=== PATIENT | female | born 1990 | race Caucasian/White ===

== ENCOUNTER 2019-03-24 22:23 | Emergency (ER) | payer OTHER ==
--- NOTE | 2019-03-24 22:49 | PDOC ---
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 Patient presented to our ED with coarse soudns and mucous being expressed from her stoma. VS demonstrated O2 in the mid 90s on non rebreather over her mouth and patient was tachypnic. No notation of fevers, chills, nausea, vomiting, or other symptoms from her [facility]. 03/25/19 01:12 Past History - Past Medical History Allergies/Adverse Reactions: Allergies Allergy/AdvReac Type Severity Reaction Status Date / Time Barbiturates Allergy Verified 03/24/19 23:40 Hydantoins Allergy Verified 03/24/19 23:40 Penicillins Allergy Verified 03/24/19 23:40 phenytoin sodium Allergy Verified 03/24/19 23:40 [From Dilantin] phenytoin sodium extended Allergy Verified 03/24/19 23:40 [From Dilantin] Quinolones Allergy Verified 03/24/19 23:40 vancomycin Allergy Verified 03/24/19 23:40 Home Medications: Ambulatory Orders Albuterol 0.083% Nebulizer Makeda [Ventolin 0.083% Nebulizer Soln -] 1 neb NEB Q6H 09/05/15 Calcium 500Mg/Vit-D 200 Units [Os-Anil 500+D -] 1 combo GT ONCE 09/05/15 Carbamide Peroxide [Carbamoxide] 4 drop OT DAILY 09/05/15 Cetirizine HCl 10 mg GT HS 09/05/15 Cholecalciferol (Vitamin D3) [Vitamin D-3] 1,000 unit GT BID 09/05/15 Cyclosporine [Restasis] 1 each OP DAILY 09/05/15 Dextran 70/Hypromellose [Artificial Tears] 2 each OU QID 09/05/15 Docusate Liquid [Colace Liquid -] 50 mg PO DAILY 09/05/15 Levothyroxine [Synthroid -] 100 mcg GT DAILY 09/05/15 Magnesium Hydroxide [Milk of Magnesia] 30 ml GT DAILY 09/05/15 Multivitamin [Poly-Vitamin] 1 each GT DAILY 09/05/15 Ocular Lubricant Ophth Oint [Lacri-Lube Eye Ointment -] 1 applic OU HS 09/05/15 Omeprazole 20 mg GT DAILY 09/05/15 Ranitidine Oral Solution [Zantac] 150 mg GT Q12H 09/05/15 Triamcinolone Acetonide [Nasacort] 10.8 ml NS DAILY 09/05/15 Ursodiol [Actigall] 300 mg GT TID 09/05/15 Vit C/Ascorbate Calcium,Sodium [Vitamin C 500 mg/15 ml Liquid] 1,000 mg GT DAILY 09/05/15 levETIRAcetam [Keppra Oral Solution -] 1,500 mg PO BID 09/05/15 Seizures: Yes Thyroid Disease: Yes (hashimototo thyroiditis) - Surgical History Cholecystectomy: Yes Neurologic Surgery: Yes (tbi) - Immunization History Immunization Up to Date: (unknown) - Suicide/Smoking/Psychosocial Hx Smoking History: Unknown if ever smoked Hx Alcohol Use: No Drug/Substance Use Hx: No Review of Systems - Review of Systems Able to Perform ROS?: No (non verbal) Is the patient limited Pashto proficient: Yes *Physical Exam - Physical Exam General Appearance: Yes: Nourished, Appropriately Dressed, Apparent Distress, Moderate Distress HEENT: positive: EOMI, BRAEDEN. negative: Normal ENT Inspection (tracheal stoma site well healed with copious clear mucous expressed from the site) Neck: positive: Trachea midline, Supple Respiratory/Chest: positive: Respiratory Distress, Accessory Muscle Use. negative: Chest Tender, Lungs Clear (upper respiratory transmission with clear lower lung betancourt otherwise), Normal Breath Sounds Cardiovascular: positive: Regular Rhythm, Tachycardia. negative: Regular Rate Gastrointestinal/Abdominal: positive: Normal Bowel Sounds, Flat, Soft. negative : Tender Musculoskeletal: positive: Muscle Spasm, Other (bilateral le spasms with upper extemeity contractures) Extremity: negative: Normal Capillary Refill, Normal Inspection, Normal Range of Motion, Tender Integumentary: positive: Normal Color, Dry, Warm Neurologic: positive: Alert. negative: Normal Response, Motor Strength 5/5 ED Treatment Course - LABORATORY CBC & Chemistry Diagram: 03/25/19 00:22 03/25/19 00:22 Medical Decision Making - Medical Decision Making 28 year old female with multiple post traumatic neurological deficits presenting with shortness of breath and clear CXR with small WBC concerning for likely mucous plug as their was clear mucous coming from a mature healed tracheal stoma. We performed chest PT and saline suctioning which relieved her symptoms. SHe was sating 99% comfortably on RA a few hours fter presentation. Chemistries WNL with exception of mild hypokalemia (given kdur 20meq). EKG demonstrating rate 104, IA 154, QRS 76, QTc 462, and normal axis with nonspecific t wave changes v3-v6 concerning for rate dependent repolarization abnormality. 03/25/19 01:21 *DC/Admit/Observation/Transfer Diagnosis at time of Disposition: Mucus plugging of bronchi - Discharge Dispostion Disposition: RETIREMENT FACILITY Condition at time of disposition: Improved Decision to Admit order: No - Referrals - Patient Instructions Additional Instructions: You likely had a mucous plug of your lungs. There is no sign of infection on your CXR. Please make sure to have her sitting up and try to perform chest PT if possible whenever you can. Please return to the ED if you have any new or worsening symptoms. - Post Discharge Activity
[2019-03-24] MEDS ORDERED: ALBUTEROL SO4 0.083% IH SOL 2.5 MG/3 ML VIAL.NEB. NEB ONE (22:52)
[2019-03-24] MEDS ORDERED: IPRATROPIUM BR 0.02% 0.5 MG/2.5 ML VIAL.NEB. NEB ONE (22:52)
[2019-03-24 23:49] VITALS: BP 110/78; PULSE 98; TEMP 98.5; BMI 32.5
[2019-03-25 00:36] LABS: VENOUS PC02 53.8 mmHg (41-51); VENOUS PH 7.31 (7.31-7.41)
[2019-03-25 00:47] LABS: BASO % 0.1 % (0-2.0); EOS % 0.1 % (0-4.5); HEMATOCRIT 40.8 % (32.4-45.2); HEMOGLOBIN 13.8 GM/dL (10.7-15.3); LYMPH % 5.1 % (8-40); MCH 35.5 pg (25.7-33.7); MCHC 33.8 g/dl (32.0-36.0); MEAN CELL VOLUME 104.8 fl (80-96); MEAN PLT VOLUME 8.9 fl (7.5-11.1); MONO % 2.4 % (3.8-10.2); NEUT % 92.3 % (42.8-82.8); PLATELET COUNT 160 K/MM3 (134-434); RBC 3.89 M/mm3 (3.60-5.2); WHITE BLOOD COUNT 16.5 K/mm3 (4.0-10.0)
--- NOTE | 2019-03-25 00:52 | PDOC ---
Documentation entered by Alem Edward SCRIBE, acting as scribe for Shane Yang MD. Shane Yang MD: This documentation has been prepared by the Cheyanne taylor Nirvannie, SCRIBE, under my direction and personally reviewed by me in its entirety. I confirm that the documentation accurately reflects all work, treatment, procedures, and medical decision making performed by me. Attending Attestation - Resident Resident Name: Arin Jackson - ED Attending Attestation I have performed the following: I have examined & evaluated the patient, The case was reviewed & discussed with the resident, I agree w/resident's findings & plan - HPI HPI: 03/24/19 23:18 The patient is a 28 year old female, with a significant past medical history of raheel thyroiditis, seizures, and TBI, who presents to the emergency department from [facility] with, difficulty breathing. As per EMS, patient had her trach removed approximately 4 years ago and today she had been experiencing drainage from the area. Allergies: Barbiturates, Hydantoins, Penicillins, phenytoin sodium, phenytoin sodium extended, Quinolones, vancomycin Social History: Resident @ [facility]. - Physicial Exam PE: 03/25/19 00:49 Patient is awake, alert, nonverbal, and respiratory distress Patient communicates by pointing to card with word yes and no on them Normocephalic, PERRLA, EOMI No foreign bodies within the oropharynx Mature stoma is noted to the anterior aspect of the neck draining mucoid discharge Lungs are clear with upper respiratory sounds transmitted distally Abdomen is soft and nontender - Medical Decision Making 03/25/19 00:50 Patient is a 28-year-old female with history of TBI presents to the ER with sudden onset of shortness of breath and cough. I suspect a mucous plug. Aggressive pulmonary toilet administered in the ER along with suctioning and saline nebulizers. On room air, patient's oxygen saturation is noted to be 97-98 %. Chest x-ray reveals no evidence of infiltrate or effusion. Will observe. Likely discharge. 03/25/19 01:20 Patient is resting comfortably, her symptoms have completely resolved. Oxygen saturation room air is noted to be 99%. Patient's initial EKG revealed ST segment abnormalities in the lateral leads likely related to post tachycardia repolarization. CBC reveals leukocytosis with predominance of neutrophils likely related to the acute stress reaction. Awaiting CMP. Disposition as planned
[2019-03-25 01:05] LABS: INR 0.99 (0.83-1.09); PROTHROMBIN TIME (PATIENT) 11.7 SEC (9.7-13.0)
[2019-03-25 01:09] LABS: ACTIVATED PTT 34.7 SECONDS (25.2-36.5)
[2019-03-25 01:22] LABS: ALBUMIN 3.6 g/dl (3.4-5.0); ALK PHOS 211 U/L (45-117); ANION GAP 11 MMOL/L (8-16); BILIRUBIN,TOTAL 0.3 mg/dL (0.2-1); BLOOD UREA NITROGEN 17 mg/dL (7-18); CALCIUM 9.4 mg/dL (8.5-10.1); CHLORIDE 104 mmol/L (98-107); CO2 25 mmol/L (21-32); CREATININE 0.6 mg/dL (0.55-1.3); GLUCOSE,RANDOM 109 mg/dL (74-106); POTASSIUM 3.3 mmol/L (3.5-5.1); SGOT/AST 41 U/L (15-37); SGPT/ALT 50 U/L (13-61); SODIUM 140 mmol/L (136-145); TOT PROT 8.3 g/dl (6.4-8.2)
[2019-03-25] MEDS ORDERED: POTASSIUM CHLORIDE TABS 20 MEQ TABLET.ER (FP) PO ONE (01:31)
[2019-03-25] MEDS ORDERED: POTASSIUM CHLORIDE ORAL LIQUID 20 MEQ/15 ML PO ONE (01:32)
[2019-03-25] MEDS ORDERED: POTASSIUM CHLORIDE ORAL LIQUID 20 MEQ/15 ML ONE (01:39)
[2019-03-25 11:29] LABS: ANISOCYTOSIS 2+; MACROCYTOSIS 0; PLATELET ESTIMATE NORMAL
--- NOTE | 2019-03-25 15:05 | EKG ---
Test Reason : Blood Pressure : / mmHG Vent. Rate : 104 BPM Atrial Rate : 104 BPM P-R Int : 154 ms QRS Dur : 076 ms QT Int : 352 ms P-R-T Axes : 068 045 078 degrees QTc Int : 462 ms SINUS TACHYCARDIA NONSPECIFIC ST AND T WAVE ABNORMALITY ABNORMAL ECG NO PREVIOUS ECGS AVAILABLE Confirmed by KELBY PETERSON MD ([id number]) on 03/25/2019 3:05:34 PM Referred By: Confirmed By:KELBY PETERSON MD
--- NOTE | 2019-03-25 15:07 | EKG ---
Test Reason : Blood Pressure : / mmHG Vent. Rate : 110 BPM Atrial Rate : 110 BPM P-R Int : 144 ms QRS Dur : 086 ms QT Int : 364 ms P-R-T Axes : 075 052 073 degrees QTc Int : 492 ms SINUS TACHYCARDIA NONSPECIFIC ST AND T WAVE ABNORMALITY ABNORMAL ECG NO PREVIOUS ECGS AVAILABLE Confirmed by KELBY PETERSON MD ([id number]) on 03/25/2019 3:06:38 PM Referred By: Confirmed By:KELBY PETERSON MD
== END 2019-03-25 04:12 ==
LOC: JER 22:23
DX: J98.09 Other diseases of bronchus, not elsewhere classified (principal); T17.890A Other foreign object in other parts of respiratory tract causing asphyxiation, initial encounter; E06.3 Autoimmune thyroiditis; S06.9X0A Unspecified intracranial injury without loss of consciousness, initial encounter; R56.9 Unspecified convulsions
CPT/HCPCS: 36415; 71045-TC-FY; 80053; 82803; 83605; 84439; 84443; 84484; 85025; 85610; 85730; 87040; 93005; 93010; 99282-25

== ENCOUNTER 2019-10-21 10:48 | Inpatient (IN) | payer OTHER ==
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
--- NOTE | 2019-10-21 11:36 | PDOC ---
Attending Attestation - Resident Resident Name: Lauren French - ED Attending Attestation I have performed the following: I have examined & evaluated the patient, The case was reviewed & discussed with the resident, I agree w/resident's findings & plan, Exceptions are as noted
[2019-10-21 12:25] LABS: VENOUS PC02 43.8 mmHg (38-52); VENOUS PH 7.36 (7.31-7.41); VENOUS PO2 63.2 mmHg (28-48)
[2019-10-21] MEDS ORDERED: SODIUM CHLORIDE IV ONE (13:12)
[2019-10-21] MEDS ORDERED: ACETAMINOPHEN 1000 MG/100 ML VIAL (NON FORMULARY) IVPB ONE (13:20)
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
[2019-10-21] MEDS ORDERED: ACETAMINOPHEN INJECTION 100 ML IVPB ONE (13:51)
[2019-10-21] MEDS ORDERED: AZITHROMYCIN IVPB 500 MG in DEXTROSE 5%-WATER - 250 ML IVPB ONE (13:53)
[2019-10-21] MEDS ORDERED: AZTREONAM 2 GM in DEXTROSE 5%-WATER 100 ML IVPB ONE (13:54)
[2019-10-21 13:58] LABS: BASO % 0.1 % (0-2.0); HEMATOCRIT 33.6 % (32.4-45.2); HEMOGLOBIN 11.5 GM/dL (10.7-15.3); LYMPH % 2.5 % (8-40); MCH 36.6 pg (25.7-33.7); MCHC 34.4 g/dl (32.0-36.0); MEAN CELL VOLUME 106.5 fl (80-96); MEAN PLT VOLUME 8.9 fl (7.5-11.1); MONO % 2.3 % (3.8-10.2); NEUT % 95.1 % (42.8-82.8); PLATELET COUNT 158 K/MM3 (134-434); RBC 3.15 M/mm3 (3.60-5.2); RDW 14.5 % (11.6-15.6); WHITE BLOOD COUNT 10.3 K/mm3 (4.0-10.0)
[2019-10-21] MEDS ORDERED: AZITHROMYCIN IVPB 500 MG/250 ML BAG IVPB ONE (14:00)
[2019-10-21] MEDS ORDERED: AZTREONAM 1 GM VIAL (RESTRICTED TO ID) ONE (14:00)
[2019-10-21 14:42] LABS: ALBUMIN 3.3 g/dl (3.4-5.0); ALK PHOS 215 U/L (45-117); ANION GAP 6 MMOL/L (8-16); BILIRUBIN,TOTAL 0.4 mg/dL (0.2-1); BLOOD UREA NITROGEN 10.1 mg/dL (7-18); CALCIUM 9.1 mg/dL (8.5-10.1); CHLORIDE 102 mmol/L (98-107); CO2 26 mmol/L (21-32); CREATININE 0.6 mg/dL (0.55-1.3); GLUCOSE,RANDOM 147 mg/dL (74-106); POTASSIUM 4.5 mmol/L (3.5-5.1); SGOT/AST 107 U/L (15-37); SGPT/ALT 109 U/L (13-61); SODIUM 134 mmol/L (136-145); TOT PROT 7.3 g/dl (6.4-8.2)
[2019-10-21 14:43] LABS: ANISOCYTOSIS 1+; MACROCYTOSIS 1+; PLATELET ESTIMATE NORMAL
[2019-10-21] MEDS ORDERED: morphine CARPU-JECT 4 MG/1 ML DISP.SYRIN IVPUSH ONE (14:51)
[2019-10-21] MEDS ORDERED: morphine SULFATE 4 MG/ML VIAL ONE (15:29)
[2019-10-21] MEDS ORDERED: LINEZOLID 600 MG PREMIX BAG 600 MG in PREMIX 300 IVPB ONE (15:30)
[2019-10-21] MEDS ORDERED: RANITIDINE HCL 150 MG/10 ML UNIT-DOSE GT SCH (16:15)
[2019-10-21] MEDS ORDERED: SODIUM CHLORIDE 1,000 ML IV SCH ×2 (16:15→19:02)
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
[2019-10-21 17:51] LABS: URINE APPEARANCE CLEAR; URINE BILIRUBIN NEGATIVE (NEGATIVE); URINE COLOR YELLOW; URINE GLUCOSE (UA) NEGATIVE (NEGATIVE); URINE KETONE NEGATIVE (NEGATIVE); URINE LEUK ESTERASE NEGATIVE (NEGATIVE); URINE NITRITE NEGATIVE (NEGATIVE); URINE PROTEIN NEGATIVE (NEGATIVE); URINE UROBILINOGEN 0.2 mg/dL (0.2-1.0)
[2019-10-21 17:56] LABS: MAGNESIUM 1.7 mg/dL (1.8-2.4); PHOSPHOROUS 1.8 mg/dL (2.5-4.9)
[2019-10-21] MEDS ORDERED: MAGNESIUM SULF 50% (8.12 MEQ/2 ML-1 GM VIAL) IVPB ONE (17:59)
[2019-10-21] MEDS: LINEZOLID 600 MG PREMIX BAG 600 MG in PREMIX 300 IVPB SCH (18:03)
--- NOTE | 2019-10-21 18:04 | EKG ---
Test Reason : Blood Pressure : / mmHG Vent. Rate : 117 BPM Atrial Rate : 117 BPM P-R Int : 134 ms QRS Dur : 074 ms QT Int : 338 ms P-R-T Axes : 067 036 003 degrees QTc Int : 471 ms POOR DATA QUALITY, INTERPRETATION MAY BE ADVERSELY AFFECTED SINUS TACHYCARDIA POSSIBLE LEFT ATRIAL ENLARGEMENT NONSPECIFIC ST AND T WAVE ABNORMALITY IN INFERIOR AND LATERAL LEADS Confirmed by MD Amrit, Rajendra ([id number]) on 10/21/2019 6:04:16 PM Referred By: Confirmed By:Rajendra Marcus MD
[2019-10-21 18:18] LABS: INR 1.05 (0.83-1.09); PROTHROMBIN TIME (PATIENT) 12.4 SEC (9.7-13.0)
[2019-10-21 18:21] LABS: ACTIVATED PTT 22.2 SECONDS (25.2-36.5)
[2019-10-21] MEDS ORDERED: LACTATED RINGERS SOLUTION 1,000 ML/1,000 ML INFUS.BAG IV SCH (19:00)
[2019-10-21] MEDS: ALBUTEROL SO4 0.083% IH SOL 2.5 MG/3 ML VIAL.NEB. NEB SCH (20:49)
[2019-10-21] MEDS: IBUPROFEN 600 MG TABLET (FP) PO PRN (21:45)
[2019-10-21] MEDS: SODIUM PHOSPHATE - 30 MM in SODIUM CHLORIDE 500 ML IVPB ONE (21:45)
[2019-10-21] MEDS ORDERED: CALCIUM 500MG/VIT-D 200 UNITS COMBO TABLET (FP) GT ONE (22:00)
[2019-10-21 22:14] VITALS: BMI 23.4
[2019-10-21] MEDS: FAMOTIDINE 40 MG/5 ML ORAL SUSPENSION NR SCH (22:45)
[2019-10-21] MEDS: levETIRAcetam 500 MG/5 ML ORAL SOLUTION (UNIT-DOSE CUPS) PO SCH (22:45)
[2019-10-21] MEDS: OCULAR LUBRICANT OPHTHALMIC OINTMENT 7 GM TUBE OU SCH (22:45)
[2019-10-21] MEDS: HEPARIN NA (PORCINE) 5,000 UNITS/ML 1ML VIAL SQ SCH (22:46)
[2019-10-22] MEDS ORDERED: AZTREONAM 1 GM VIAL (RESTRICTED TO ID) ONE ×2 (00:08→10:19)
[2019-10-22] MEDS ORDERED: DEXTROSE 5%-WATER - 50 ML IVPB ONE ×2 (00:08→10:19)
[2019-10-22] MEDS: AZTREONAM 1 GM in DEXTROSE 5%-WATER - 50 ML IVPB SCH ×3 (01:07→17:09)
[2019-10-22] MEDS: SODIUM PHOSPHATE - 30 MM in SODIUM CHLORIDE 500 ML IVPB ONE (02:48)
[2019-10-22] MEDS: HEPARIN NA (PORCINE) 5,000 UNITS/ML 1ML VIAL SQ SCH ×3 (05:32→21:32)
[2019-10-22] MEDS ORDERED: LINEZOLID 600 MG PREMIX BAG 600 MG/300 ML BAG IVPB ONE (06:00)
[2019-10-22] MEDS: LEVOTHYROXINE NA 100 MCG TABLET (FP) GT SCH (06:15)
[2019-10-22 08:33] LABS: BASO % 0.1 % (0-2.0); HEMATOCRIT 26.7 % (32.4-45.2); LYMPH % 27.7 % (8-40); MCH 36.5 pg (25.7-33.7); MCHC 33.7 g/dl (32.0-36.0); MEAN CELL VOLUME 108.3 fl (80-96); MEAN PLT VOLUME 8.6 fl (7.5-11.1); MONO % 12.1 % (3.8-10.2); NEUT % 60.1 % (42.8-82.8); PLATELET COUNT 136 K/MM3 (134-434); RBC 2.47 M/mm3 (3.60-5.2); RDW 14.6 % (11.6-15.6); WHITE BLOOD COUNT 7.6 K/mm3 (4.0-10.0)
[2019-10-22 09:02] LABS: ALBUMIN 2.6 g/dl (3.4-5.0); BILIRUBIN,TOTAL 0.2 mg/dL (0.2-1); BLOOD UREA NITROGEN 6.4 mg/dL (7-18); CALCIUM 8.1 mg/dL (8.5-10.1); CREATININE 0.3 mg/dL (0.55-1.3); PHOSPHOROUS 3.3 mg/dL (2.5-4.9); POTASSIUM 3.7 mmol/L (3.5-5.1); TOT PROT 5.9 g/dl (6.4-8.2)
[2019-10-22] MEDS: ALBUTEROL SO4 0.083% IH SOL 2.5 MG/3 ML VIAL.NEB. NEB SCH ×4 (09:40→21:22)
[2019-10-22] MEDS ORDERED: AZITHROMYCIN IVPB 500 MG/250 ML BAG IVPB ONE (10:00)
[2019-10-22] MEDS ORDERED: PANTOPRAZOLE 40 MG TABLET (FP) PO SCH (10:00)
[2019-10-22] MEDS ORDERED: PATIENT'S OWN MEDICATION (NON-FORMULARY) (Multivitamin [Poly-Vitamin] 1 EACH) GT SCH (10:00)
[2019-10-22] MEDS ORDERED: PT OWN MED DRAWER 7, Y5N ONE ×2 (10:20→17:24)
[2019-10-22] MEDS: MAGNESIUM HYDROX 2400MG/30ML ORAL SUSPENSION 30 ML CUP GT SCH (10:29)
[2019-10-22] MEDS: FAMOTIDINE 40 MG/5 ML ORAL SUSPENSION NR SCH ×2 (10:31→21:32)
[2019-10-22] MEDS: DOCUSATE NA 100 MG/10 ML UNIT-DOSE CUPS PO SCH (10:31)
[2019-10-22] MEDS: levETIRAcetam 500 MG/5 ML ORAL SOLUTION (UNIT-DOSE CUPS) PO SCH ×2 (10:33→21:33)
--- NOTE | 2019-10-22 12:14 | PN ---
Progress Note, Physician History of Present Illness: Patient seen and examined at bedside. Pending ID consult. Lactic acid normalized. LFTs imporved. labs seem dilutional as she got large amount of IVF. UA clean. UCx BCx pending. WBC count imporved. Tmax 100 last night. Afebrile. Tachycardia improved. ROS could not be done as patient is non verbal. - Current Medication List Current Medications: Active Medications Albuterol Sulfate (Ventolin 0.083% Nebulizer Soln -) 1 amp NEB RQID [facility] Last Admin: 10/21/19 20:49 Dose: 1 amp Artificial Tears (Lacri-Lube Eye Ointment -) 1 applic OU HS [facility] Last Admin: 10/21/19 22:45 Dose: 1 appful Docusate Sodium (Colace Liquid -) 50 mg PO DAILY [facility] Last Admin: 10/22/19 10:31 Dose: 50 mg Famotidine (Pepcid) 20 mg NR BID [facility] Last Admin: 10/22/19 10:31 Dose: 20 mg Heparin Sodium (Porcine) (Heparin -) 5,000 unit SQ TID [facility] Last Admin: 10/22/19 05:32 Dose: 5,000 unit Aztreonam 1 gm/ Dextrose 50 mls @ 100 mls/hr IVPB Q8H-IV [facility]; Protocol Linezolid 600 mg/ (Miscellaneous) 300 mls @ 300 mls/hr IVPB Q12H [facility]; Protocol Last Admin: 10/21/19 18:03 Dose: 300 mls/hr Lactated Ringer's (Lactated Ringers Solution) 1,000 ml in 1,000 mls @ 1,000 mls /hr IV ASDIR [facility] Stop: 10/22/19 19:59 Last Admin: 10/21/19 20:45 Dose: 1,000 mls/hr Aztreonam 1 gm/ Dextrose 50 mls @ 100 mls/hr IVPB Q8H-IV [facility] Stop: 10/22/19 18:29 Last Admin: 10/22/19 10:29 Dose: 100 mls/hr Ibuprofen (Motrin -) 600 mg PO Q6H PRN PRN Reason: FEVER Last Admin: 10/21/19 21:45 Dose: 600 mg Levetiracetam (Keppra Oral Solution -) 1,500 mg PO BID [facility] Last Admin: 10/22/19 10:33 Dose: 1,500 mg Levothyroxine Sodium (Synthroid -) 100 mcg GT DAILY@0700 [facility] Last Admin: 10/22/19 06:15 Dose: 100 mcg Magnesium Hydroxide (Milk Of Magnesia -) 30 ml GT DAILY [facility] Last Admin: 10/22/19 10:29 Dose: 30 ml Multivitamins/Minerals (Certavite-Antioxidant Liquid) 15 ml GT DAILY [facility] - Objective Vital Signs: Vital Signs Temperature 98.6 F 10/22/19 05:00 Pulse Rate 94 H 10/22/19 09:00 Respiratory Rate 18 10/22/19 09:00 Blood Pressure 91/61 10/22/19 09:00 O2 Sat by Pulse Oximetry (%) 98 10/22/19 08:38 Constitutional: Yes: Well Nourished, no distress Eyes: Yes: Conjunctiva Clear Neck: Yes: Other (stoma where tracheostomy was is with purulent thick secretions which are still present) Cardiovascular: Yes: Tachycardia Respiratory: Yes: Rales, Rhonchi, SOB Gastrointestinal: Yes: Soft, Other (PEG in place without drainage or erythema). No: Distention, Tenderness (no grimacing) Musculoskeletal: Yes: Other (arms spontaneously moving) Edema: LLE: Trace, RLE: Trace Psychiatric: Yes: Other (history of TBI) Labs: CBC, BMP 10/22/19 08:00 10/22/19 08:00 INR, PTT INR 1.05 (0.83-1.09) 10/21/19 17:25 Impression/Plan Impression/Plan: This is a 29F with history of TBI seizures and hypothyroidism who presents to the hospital with copious thick purulent secretions from previous tracheostomy stoma, tachycardia, acute hypoxemia respiratory failure, secondary to healthcare acquired pneumonia. Problem List: severe Sepsis secondary to Healthcare acquired PNA Acute hypoxemic respiratory failure Tachycardia Seizure history hypothyroidism Elevated LFTs likely shock liver from sepsis Lactic acidosis-resolved TBI Functional quadriplegia mild hyponatremia-resolved with IVF Hypophosphatemia-resolved with repletion hypomagnesemia-resolved with repletion Plan: ID consult due to Abx allergies-pending. Got azactam, linezolid and azithromycin this AM pending ID consult f/u Cultures-pending f/u UA-clean UCx via straight cath pending continue home meds continue nebulizers continue synthroid Tube feeds per prison instructions Jevity 1 can 4 times a day with free water flushes ordered supervisor stone consult continue keppra lactic acidosis resolved IVF NS @ 100ml/hr Trend LFTs-improving with volume Visit type - Emergency Visit Emergency Visit: Yes ED Registration Date: 10/21/19 Care time: The patient presented to the Emergency Department on the above date and was hospitalized for further evaluation of their emergent condition. - New Patient This patient is new to me today: No - Critical Care Critical Care patient: No
[2019-10-22] MEDS ORDERED: LACTATED RINGERS SOLUTION 1,000 ML/1,000 ML INFUS.BAG IV SCH (14:30)
--- NOTE | 2019-10-22 17:07 | PN ---
Progress Note (short form) - Note Progress Note: ID CONSULT DICTATED PNEUMONIA MULTIPLE ANTIBIOTIC ALLERGIES PENDING C/S EMPIRIC ZITHROMAX/ AZTREONAM
[2019-10-22] MEDS: LINEZOLID 600 MG PREMIX BAG 600 MG in PREMIX 300 IVPB SCH (17:09)
[2019-10-22] MEDS: MULTIVIT-MINERALS ORAL LIQUID GT SCH (17:50)
[2019-10-22] MEDS: AZTREONAM 2 GM in DEXTROSE 5%-WATER 100 ML IVPB SCH (19:17)
[2019-10-22] MEDS: OCULAR LUBRICANT OPHTHALMIC OINTMENT 7 GM TUBE OU SCH (21:33)
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
[2019-10-23] MEDS: AZTREONAM 2 GM in DEXTROSE 5%-WATER 100 ML IVPB SCH ×3 (01:41→17:55)
[2019-10-23] MEDS: HEPARIN NA (PORCINE) 5,000 UNITS/ML 1ML VIAL SQ SCH ×3 (06:12→22:04)
[2019-10-23] MEDS: LEVOTHYROXINE NA 100 MCG TABLET (FP) GT SCH (06:12)
[2019-10-23] MEDS: ALBUTEROL SO4 0.083% IH SOL 2.5 MG/3 ML VIAL.NEB. NEB SCH ×4 (08:23→20:39)
[2019-10-23 08:25] LABS: BASO % 0.2 % (0-2.0); EOS % 0.8 % (0-4.5); HEMATOCRIT 27.5 % (32.4-45.2); HEMOGLOBIN 9.4 GM/dL (10.7-15.3); MCH 36.8 pg (25.7-33.7); MCHC 34.2 g/dl (32.0-36.0); MEAN CELL VOLUME 107.7 fl (80-96); MEAN PLT VOLUME 8.8 fl (7.5-11.1); MONO % 9.3 % (3.8-10.2); NEUT % 52.7 % (42.8-82.8); PLATELET COUNT 144 K/MM3 (134-434); RBC 2.55 M/mm3 (3.60-5.2); RDW 15.3 % (11.6-15.6); WHITE BLOOD COUNT 6.4 K/mm3 (4.0-10.0)
[2019-10-23 08:56] LABS: ALBUMIN 2.7 g/dl (3.4-5.0); BILIRUBIN,TOTAL 0.2 mg/dL (0.2-1); BLOOD UREA NITROGEN 6.7 mg/dL (7-18); CALCIUM 8.8 mg/dL (8.5-10.1); CREATININE 0.4 mg/dL (0.55-1.3); PHOSPHOROUS 1.8 mg/dL (2.5-4.9); POTASSIUM 3.8 mmol/L (3.5-5.1); TOT PROT 6.1 g/dl (6.4-8.2)
--- NOTE | 2019-10-23 10:19 | PN ---
Progress Note (short form) - Note Progress Note: Seen and examined; please see resident note for further information. Agree with above as documented aside from as supplemented by myself. Personally verified all thakkar historical details, PE findings, as well as all labs, imaging, and diagnostics. Discussed at length with resident and indicated consultants. No further events noted 10 sys ROS not able to be reliably completed due to underlying mentation NAD, tracks and responds to verbal stimuli, resting in bed NC AT EOMI PERRLA HR wnl, s1/2+ Trachea midline with inflamed stoma, no JVD Lungs with mild scattered rales but poor inspiratory effort, w/ sym exp NT ND +BS CN2-12 wnl, moves all 4 ext with seemingly normal strength but difficult neuro exam due to underlying condition Normal mood, not agitated, clinical condition limits judgment and insight Micro reviewed EKG reviewed labs reviewed CT neck and CT chest pending (poor inspiration admission CXR makes PNA difficult to see, want to r/o stomatitis or complications of such) Ordered respiratory viral pannel, urinary Ag, sputum cx A/P Patient presented with sepsis (resolved) and was found to have increased stomal secretions Problems include: -Sepsis -Acute respiratory failure (On 3L, no steroids, BDs per pulm) -PNA vs. stomatitis -Hx TBI -Hx Seizures -Hx Hypothyroidism -Hx functional quadraplegia -Mucus plugging (PRN suctioning) -Transaminitis (2/2 sepsis, followup US and trend CMP) -PNC allergy (abx per ID) Full Code <Perfecto Clark - Last Filed: 10/23/19 13:20> - Note Progress Note: Hospitalist Medicine Pt seen this AM. Non-verbal, receiving neb tx. Appears comfortable Vitals 10/22/19 21:00 Temperature 98.5 F Pulse Rate 95 H Respiratory 20 Rate Blood Pressure 111/61 O2 Sat by Pulse 98 Oximetry (%) Oxygen Flow 3 Rate Physical Exam general: resting in bed. receiving neb tx. in NAD HEENT: NCAT neck: supple. +stoma clean, without secretions cardio: s1, s2 rrr. no r/m/g pulm: +b/l rhonchi. no accessory m usage abdomen: nontender, nondistended. +GT in place. no erythema LE: contracted, no edema. pulses intact Microbiology 10/21/19 17:28 Urine - Urine Clean Catch Urine Culture - Final NO GROWTH OBTAINED 10/21/19 11:46 Blood - Peripheral Venous Blood Culture - Preliminary NO GROWTH OBTAINED AFTER 24 HOURS, INCUBATION TO CONTINUE FOR 4 DAYS. 10/21/19 11:46 Blood - Peripheral Venous Blood Culture - Preliminary NO GROWTH OBTAINED AFTER 24 HOURS, INCUBATION TO CONTINUE FOR 4 DAYS. EKG: +sinus tach, qtc 471ms Imaging 10/21 CXR: weak inspiration with bibasilar atelectasis. Assessment/Plan 29 y/o F with history of TBI seizures and hypothyroidism who presents to the hospital with copious thick purulent secretions from previous tracheostomy stoma , tachycardia, acute hypoxemia respiratory failure, secondary to healthcare acquired pneumonia. #severe Sepsis secondary to Healthcare acquired PNA #Acute hypoxemic respiratory failure -c/w zithro, azactam (Day2) -c/w nebs PRN -UA, blood, ucx (-) thus far -motrin PRN for pain/fever -unable to give sputum cx -w/numerous abx allergies: PCN, vanco, etc. -ID on board: Dr. Douglas #R/o stomatitis -f/u ENT: Dr. Vegas -f/u chest CT, soft tissue neck CT -f/u ECHO; increased atrial pressure #transaminitis likely 2/2 sepsis -improving; c/t monitor # hx seizures -c/w keppra GT #hypothyroidism -c/w synthroid #Functional quadriplegia -c/w home meds: mg ox, MTV minerals, ocular lubricant #Constipation -c/w colace #F/E/N off IVF; lactic has improved continue to follow lyanita TF vital per dietary #PPX DVT: hep 5k Sq TID GI: pepcid #Dispo cont'd monitoring on med/surg will update aunt Margaret - guardian <Radha Kerr - Last Filed: 10/23/19 18:47>
--- NOTE | 2019-10-23 12:07 | CON.PULM ---
Consult Consult Specialty:: PULM/CCM Referred by:: Hospitalist Reason for Consultation:: PNA - History of Present Illness Chief Complaint: SOB History of Present Illness: 29F, history of TBI, functional quadriplegia, hypothyroidism, and seizure disorder. Admitted via the ER from [facility]. Reported to have "copious secretions from stoma" with tachycardia and hypoxemia. Apparently she was saturating in the low 80s on room air and high 80s on 3l NC. The patient is not able to provide any history. In the ER she was noted to be in acute respiratory distress with tachypneic, tachycardic, with an elevated lactic acid to 5.2. She improved with steroids, BD TX, and ABX. Noted multiple ABX allergies. - History Source History Provided By: Medical Record Limitations to Obtaining History: Clinical Condition - Past Medical History ETL DEVELOPER: Yes: Seizure, Other (TBI) Pulmonary: Yes: Other (S/P Tracheostomy with decannulation ) ...: No Endocrine: Yes: Hypothyroidism - Alcohol/Substance Use Hx Alcohol Use: No - Smoking History Smoking history: Unknown if ever smoked Have you smoked in the past 12 months: No Home Medications - Allergies Allergies/Adverse Reactions: Allergies Allergy/AdvReac Type Severity Reaction Status Date / Time Barbiturates Allergy Verified 03/24/19 23:40 Hydantoins Allergy Verified 03/24/19 23:40 Penicillins Allergy Verified 03/24/19 23:40 phenytoin sodium Allergy Verified 03/24/19 23:40 [From Dilantin] phenytoin sodium extended Allergy Verified 03/24/19 23:40 [From Dilantin] Quinolones Allergy Verified 03/24/19 23:40 vancomycin Allergy Verified 03/24/19 23:40 - Home Medications Home Medications: Ambulatory Orders Albuterol 0.083% Nebulizer Makeda [Ventolin 0.083% Nebulizer Soln -] 1 neb NEB Q6H 09/05/15 Calcium 500Mg/Vit-D 200 Units [Os-Anil 500+D -] 1 combo GT ONCE 09/05/15 Carbamide Peroxide [Carbamoxide] 4 drop OT DAILY 09/05/15 Cetirizine HCl 10 mg GT HS 09/05/15 Cholecalciferol (Vitamin D3) [Vitamin D-3] 1,000 unit GT BID 09/05/15 Cyclosporine [Restasis] 1 each OP DAILY 09/05/15 Dextran 70/Hypromellose [Artificial Tears] 2 each OU QID 09/05/15 Docusate Liquid [Colace Liquid -] 50 mg PO DAILY 09/05/15 Levothyroxine [Synthroid -] 100 mcg GT DAILY 09/05/15 Magnesium Hydroxide [Milk of Magnesia] 30 ml GT DAILY 09/05/15 Multivitamin [Poly-Vitamin] 1 each GT DAILY 09/05/15 Ocular Lubricant Ophth Oint [Lacri-Lube Eye Ointment -] 1 applic OU HS 09/05/15 Omeprazole 20 mg GT DAILY 09/05/15 Ranitidine Oral Solution [Zantac] 150 mg GT Q12H 09/05/15 Triamcinolone Acetonide [Nasacort] 10.8 ml NS DAILY 09/05/15 Ursodiol [Actigall] 300 mg GT TID 09/05/15 Vit C/Ascorbate Calcium,Sodium [Vitamin C 500 mg/15 ml Liquid] 1,000 mg GT DAILY 09/05/15 levETIRAcetam [Keppra Oral Solution -] 1,500 mg PO BID 09/05/15 Review of Systems Unable to obtain ROS, reason: not able to provide Physical Exam Vital Sings: Vital Signs Temperature 98.5 F 10/22/19 21:00 Pulse Rate 95 H 10/22/19 21:00 Respiratory Rate 20 10/22/19 21:00 Blood Pressure 111/61 10/22/19 21:00 O2 Sat by Pulse Oximetry (%) 98 10/22/19 21:00 Constitutional: Yes: Well Nourished, No Distress Eyes: Yes: Conjunctiva Clear, EOM Intact HENT: Yes: Atraumatic, Normocephalic, Other (well healed Trach stoma ) Neck: Yes: Supple, Trachea Midline, Other (well healed Trach stoma) Cardiovascular: Yes: Regular Rate and Rhythm Respiratory: Yes: Cough, Diminished, On Nasal O2, Rhonchi, SOB, Tachypnea. No: Accessory Muscle Use, Rales, SOB on Exertion, Stridor, Wheezes ...Inspection: Yes: WNL ...Clubbing: No Gastrointestinal: Yes: Normal Bowel Sounds, Soft Renal/: Yes: WNL Musculoskeletal: Yes: WNL Extremities: Yes: WNL Edema: Yes Peripheral Pulses WNL: Yes Integumentary: Yes: WNL Neurological: Yes: Pre-Existing Deficit Labs: CBC, BMP 10/23/19 07:34 10/23/19 07:34 Imaging - Results Chest X-ray: Report Reviewed, Image Reviewed Problem List - Problems (1) Acute respiratory distress Code(s): R06.03 - ACUTE RESPIRATORY DISTRESS (2) Elevated lactic acid level Code(s): R79.89 - OTHER SPECIFIED ABNORMAL FINDINGS OF BLOOD CHEMISTRY (3) Pneumonia Code(s): J18.9 - PNEUMONIA, UNSPECIFIED ORGANISM (4) Cough Code(s): R05 - COUGH (5) Mucus plugging of bronchi Code(s): J98.09 - OTHER DISEASES OF BRONCHUS, NOT ELSEWHERE CLASSIFIED (6) Atelectasis of both lungs Code(s): J98.11 - ATELECTASIS Assessment/Plan ABX per ID Suction PRN Supplemental O2 to maintain saturation Aspiration precautions BD TX as ordered No clear indication for systemic steroids at this time Will follow Thank you. Dr Pendleton
[2019-10-23] MEDS: levETIRAcetam 500 MG/5 ML ORAL SOLUTION (UNIT-DOSE CUPS) PO SCH ×2 (12:53→22:05)
[2019-10-23] MEDS: DOCUSATE NA 100 MG/10 ML UNIT-DOSE CUPS PO SCH (12:53)
[2019-10-23] MEDS: MAGNESIUM HYDROX 2400MG/30ML ORAL SUSPENSION 30 ML CUP GT SCH (12:54)
[2019-10-23] MEDS: MULTIVIT-MINERALS ORAL LIQUID GT SCH (12:54)
[2019-10-23] MEDS: AZITHROMYCIN IVPB 500 MG/250 ML BAG IVPB SCH (14:05)
[2019-10-23] MEDS ORDERED: PT OWN MED DRAWER 7, Y5N ONE ×2 (16:48→20:47)
[2019-10-23] MEDS: FAMOTIDINE 40 MG/5 ML ORAL SUSPENSION NR SCH ×2 (17:49→22:04)
--- NOTE | 2019-10-23 17:52 | PN ---
Progress Note, Physician History of Present Illness: AWAKE, APHASIC AFEBRILE BREATHING NON LABORED - Current Medication List Current Medications: Active Medications Albuterol Sulfate (Ventolin 0.083% Nebulizer Soln -) 1 amp NEB RQID [facility] Last Admin: 10/23/19 15:32 Dose: Not Given Artificial Tears (Lacri-Lube Eye Ointment -) 1 applic OU HS [facility] Last Admin: 10/22/19 21:33 Dose: 1 appful Docusate Sodium (Colace Liquid -) 50 mg PO DAILY [facility] Last Admin: 10/23/19 12:53 Dose: Not Given Famotidine (Pepcid) 20 mg NR BID [facility] Last Admin: 10/22/19 21:32 Dose: 20 mg Heparin Sodium (Porcine) (Heparin -) 5,000 unit SQ TID [facility] Last Admin: 10/23/19 06:12 Dose: 5,000 unit Aztreonam 2 gm/ Dextrose 100 mls @ 100 mls/hr IVPB Q8H-IV [facility]; Protocol Last Admin: 10/23/19 12:54 Dose: 100 mls/hr Azithromycin (Zithromax 500mg Ivpb (Pre-Docked)) 500 mg in 250 mls @ 250 mls/ hr IVPB DAILY [facility] Last Admin: 10/23/19 14:05 Dose: 250 mls/hr Ibuprofen (Motrin -) 600 mg PO Q6H PRN PRN Reason: FEVER Last Admin: 10/21/19 21:45 Dose: 600 mg Levetiracetam (Keppra Oral Solution -) 1,500 mg PO BID [facility] Last Admin: 10/23/19 12:53 Dose: 1,500 mg Levothyroxine Sodium (Synthroid -) 100 mcg GT DAILY@0700 [facility] Last Admin: 10/23/19 06:12 Dose: 100 mcg Magnesium Hydroxide (Milk Of Magnesia -) 30 ml GT DAILY [facility] Last Admin: 10/23/19 12:54 Dose: Not Given Multivitamins/Minerals (Certavite-Antioxidant Liquid) 15 ml GT DAILY [facility] Last Admin: 10/23/19 12:54 Dose: 15 ml - Objective Vital Signs: Vital Signs Temperature 98.1 F 10/23/19 14:29 Pulse Rate 92 H 10/23/19 14:29 Respiratory Rate 20 10/23/19 14:29 Blood Pressure 101/62 10/23/19 14:29 O2 Sat by Pulse Oximetry (%) 98 10/23/19 09:00 Constitutional: Yes: No Distress Eyes: Yes: Conjunctiva Clear Cardiovascular: Yes: Regular Rate and Rhythm, S1, S2 Respiratory: Yes: Diminished Gastrointestinal: Yes: Normal Bowel Sounds, Soft. No: Tenderness Edema: Yes Edema: LLE: 1+, RLE: 1+ Labs: CBC, BMP 10/23/19 07:34 10/23/19 07:34 INR, PTT INR 1.05 (0.83-1.09) 10/21/19 17:25 Assessment/Plan PNEUMONIA LACTIC ACIDOSIS RESOLVED MULTIPLE ANTIBIOTIC ALLERGIES S/P TBI CONTINUE ZITHROMAX/ AZTREONAM
[2019-10-23] MEDS: OCULAR LUBRICANT OPHTHALMIC OINTMENT 7 GM TUBE OU SCH (22:05)
[2019-10-24] MEDS: AZTREONAM 2 GM in DEXTROSE 5%-WATER 100 ML IVPB SCH ×3 (03:00→17:40)
[2019-10-24] MEDS: LEVOTHYROXINE NA 100 MCG TABLET (FP) GT SCH (06:52)
[2019-10-24] MEDS: HEPARIN NA (PORCINE) 5,000 UNITS/ML 1ML VIAL SQ SCH ×3 (06:52→22:27)
[2019-10-24] MEDS: ALBUTEROL SO4 0.083% IH SOL 2.5 MG/3 ML VIAL.NEB. NEB SCH ×4 (07:29→21:01)
[2019-10-24 08:17] LABS: BASO % 0.3 % (0-2.0); EOS % 1.1 % (0-4.5); HEMATOCRIT 28.9 % (32.4-45.2); HEMOGLOBIN 9.8 GM/dL (10.7-15.3); LYMPH % 38.4 % (8-40); MCH 37.2 pg (25.7-33.7); MCHC 33.9 g/dl (32.0-36.0); MEAN CELL VOLUME 109.7 fl (80-96); MEAN PLT VOLUME 8.6 fl (7.5-11.1); MONO % 9.5 % (3.8-10.2); NEUT % 50.7 % (42.8-82.8); PLATELET COUNT 160 K/MM3 (134-434); RBC 2.63 M/mm3 (3.60-5.2); RDW 15.2 % (11.6-15.6); WHITE BLOOD COUNT 6.5 K/mm3 (4.0-10.0)
[2019-10-24 08:44] LABS: ALBUMIN 2.7 g/dl (3.4-5.0); BILIRUBIN,TOTAL 0.4 mg/dL (0.2-1); BLOOD UREA NITROGEN 9.8 mg/dL (7-18); CALCIUM 8.7 mg/dL (8.5-10.1); CREATININE 0.4 mg/dL (0.55-1.3); MAGNESIUM 1.8 mg/dL (1.8-2.4); PHOSPHOROUS 2.9 mg/dL (2.5-4.9); POTASSIUM 3.9 mmol/L (3.5-5.1)
[2019-10-24] MEDS ORDERED: PT OWN MED DRAWER 7, Y5N ONE ×4 (09:51→20:34)
[2019-10-24] MEDS: FAMOTIDINE 40 MG/5 ML ORAL SUSPENSION NR SCH (09:57)
[2019-10-24] MEDS: DOCUSATE NA 100 MG/10 ML UNIT-DOSE CUPS PO SCH (09:57)
[2019-10-24] MEDS: AZITHROMYCIN IVPB 500 MG/250 ML BAG IVPB SCH (09:58)
[2019-10-24] MEDS: MAGNESIUM HYDROX 2400MG/30ML ORAL SUSPENSION 30 ML CUP GT SCH (09:58)
--- NOTE | 2019-10-24 10:26 | PN ---
Progress Note (short form) - Note Progress Note: More awake and interactive today. Breathing appears less labored. Congested cough noted. Intake & Output 10/21/19 10/22/19 10/23/19 10/24/19 23:59 23:59 23:59 23:59 Intake Total 1100 800 100 100 Balance 1100 800 100 100 Weight 154 lb 2 oz 154 lb Last Vital Signs Temp Pulse Resp BP Pulse Ox 97.7 F 75 18 104/53 L 99 10/24/19 06:10 10/24/19 06:10 10/24/19 06:10 10/24/19 06:10 10/23/19 21:00 Active Medications Albuterol Sulfate (Ventolin 0.083% Nebulizer Soln -) 1 amp NEB RQID [facility] Last Admin: 10/24/19 07:29 Dose: 1 amp Artificial Tears (Lacri-Lube Eye Ointment -) 1 applic OU HS [facility] Last Admin: 10/23/19 22:05 Dose: 1 appful Docusate Sodium (Colace Liquid -) 50 mg PO DAILY [facility] Last Admin: 10/24/19 09:57 Dose: 50 mg Famotidine (Pepcid) 20 mg NR BID [facility] Last Admin: 10/24/19 09:57 Dose: 20 mg Heparin Sodium (Porcine) (Heparin -) 5,000 unit SQ TID [facility] Last Admin: 10/24/19 06:52 Dose: 5,000 unit Aztreonam 2 gm/ Dextrose 100 mls @ 100 mls/hr IVPB Q8H-IV [facility]; Protocol Last Admin: 10/24/19 09:55 Dose: 100 mls/hr Azithromycin (Zithromax 500mg Ivpb (Pre-Docked)) 500 mg in 250 mls @ 250 mls/ hr IVPB DAILY [facility] Last Admin: 10/24/19 09:58 Dose: 250 mls/hr Ibuprofen (Motrin -) 600 mg PO Q6H PRN PRN Reason: FEVER Last Admin: 10/21/19 21:45 Dose: 600 mg Levetiracetam (Keppra Oral Solution -) 1,500 mg PO BID [facility] Last Admin: 10/23/19 22:05 Dose: 1,500 mg Levothyroxine Sodium (Synthroid -) 100 mcg GT DAILY@0700 [facility] Last Admin: 10/24/19 06:52 Dose: 100 mcg Magnesium Hydroxide (Milk Of Magnesia -) 30 ml GT DAILY [facility] Last Admin: 10/24/19 09:58 Dose: 30 ml Multivitamins/Minerals (Certavite-Antioxidant Liquid) 15 ml GT DAILY [facility] Last Admin: 10/23/19 12:54 Dose: 15 ml Constitutional: Yes: Well Nourished, No Distress Eyes: Yes: Conjunctiva Clear, EOM Intact HENT: Yes: Atraumatic, Normocephalic, Other (well healed Trach stoma ) Neck: Yes: Supple, Trachea Midline, Other (well healed Trach stoma) Cardiovascular: Yes: Regular Rate and Rhythm Respiratory: Yes: Cough, Diminished, On Nasal O2, Rhonchi. No: Accessory Muscle Use, Rales, SOB on Exertion, Stridor, Wheezes ...Inspection: Yes: WNL ...Clubbing: No Gastrointestinal: Yes: Normal Bowel Sounds, Soft Renal/: Yes: WNL Musculoskeletal: Yes: WNL Extremities: Yes: WNL Edema: Yes Peripheral Pulses WNL: Yes Integumentary: Yes: WNL Neurological: Yes: Pre-Existing Deficit Labs: Laboratory Results - last 24 hr 10/24/19 10/24/19 10/24/19 07:35 07:35 07:35 WBC 6.5 RBC 2.63 L Hgb 9.8 L Hct 28.9 L MCV 109.7 H MCH 37.2 H MCHC 33.9 RDW 15.2 Plt Count 160 MPV 8.6 Absolute Neuts (auto) 3.3 Neutrophils % 50.7 Lymphocytes % 38.4 Monocytes % 9.5 Eosinophils % 1.1 Basophils % 0.3 Nucleated RBC % 0 Sodium 142 Potassium 3.9 Chloride 110 H Carbon Dioxide 29 Anion Gap 4 L BUN 9.8 Creatinine 0.4 L Est GFR (CKD-EPI)AfAm 160.86 Est GFR (CKD-EPI)NonAf 138.79 Random Glucose 72 L Calcium 8.7 Phosphorus 2.9 Magnesium 1.8 Total Bilirubin 0.4 AST 34 ALT 58 Alkaline Phosphatase 165 H B-Natriuretic Peptide 989.9 H Total Protein 6.0 L Albumin 2.7 L Problem List - Problems (1) Acute respiratory distress Code(s): R06.03 - ACUTE RESPIRATORY DISTRESS (2) Elevated lactic acid level Code(s): R79.89 - OTHER SPECIFIED ABNORMAL FINDINGS OF BLOOD CHEMISTRY (3) Pneumonia Code(s): J18.9 - PNEUMONIA, UNSPECIFIED ORGANISM (4) Cough Code(s): R05 - COUGH (5) Mucus plugging of bronchi Code(s): J98.09 - OTHER DISEASES OF BRONCHUS, NOT ELSEWHERE CLASSIFIED (6) Atelectasis of both lungs Code(s): J98.11 - ATELECTASIS Assessment/Plan ABX per ID Suction PRN Supplemental O2 to maintain saturation Aspiration precautions BD TX as ordered Monitor off systemic steroids Dr Pendleton Problem List - Problems (1) Acute respiratory distress Code(s): R06.03 - ACUTE RESPIRATORY DISTRESS (2) Elevated lactic acid level Code(s): R79.89 - OTHER SPECIFIED ABNORMAL FINDINGS OF BLOOD CHEMISTRY (3) Pneumonia Code(s): J18.9 - PNEUMONIA, UNSPECIFIED ORGANISM (4) Cough Code(s): R05 - COUGH (5) Mucus plugging of bronchi Code(s): J98.09 - OTHER DISEASES OF BRONCHUS, NOT ELSEWHERE CLASSIFIED (6) Atelectasis of both lungs Code(s): J98.11 - ATELECTASIS
--- NOTE | 2019-10-24 11:11 | PN ---
Progress Note (short form) - Note Progress Note: Hospitalist Medicine Used yes/no chart to communicate w/ pt. "Yes" to feeling better. Appears more comfortable Vitals 10/24/19 10:00 Temperature 98.3 F Pulse Rate 74 Respiratory 18 Rate Blood Pressure 96/31 L Repeat BP 111/73. D/w nurse Physical Exam general: resting in bed. appears comfortable HEENT: NCAT neck: supple. +stoma clean, without secretions cardio: s1, s2 rrr. no r/m/g pulm: still w/ rhonchi. no accessory m usage abdomen: nontender, nondistended. +GT in place. no erythema LE: contracted, no edema. pulses intact Laboratory Tests 10/24/19 10/24/19 10/24/19 07:35 07:35 07:35 WBC 6.5 Hgb 9.8 L Hct 28.9 L Plt Count 160 Sodium 142 Potassium 3.9 Chloride 110 H Carbon Dioxide 29 BUN 9.8 Creatinine 0.4 L B-Natriuretic Peptide 989.9 H Total Protein 6.0 L Albumin 2.7 L Microbiology 10/21/19 17:28 Urine - Urine Clean Catch Urine Culture - Final NO GROWTH OBTAINED 10/21/19 11:46 Blood - Peripheral Venous Blood Culture - Preliminary NO GROWTH OBTAINED AFTER 24 HOURS, INCUBATION TO CONTINUE FOR 4 DAYS. 10/21/19 11:46 Blood - Peripheral Venous Blood Culture - Preliminary NO GROWTH OBTAINED AFTER 24 HOURS, INCUBATION TO CONTINUE FOR 4 DAYS. EKG: +sinus tach, qtc 471ms Imaging 10/21 CXR: weak inspiration with bibasilar atelectasis. 10/[address]: no discrete noncontrast CT abnormality involving the neck soft tissues. Tracheostomy site is seen. Encephalomalacia and ventriculomegaly also visualized. 10/[address]: left lower lobe infiltrate, probable small L upper lobe infiltrate, trace L pleural effusion. main pulmonary artery diameter appears mildly prominent measuring 3cm. additional evaluation for possible increased pulmonary arterial pressure is suggested. 10/24 CXR: weak inspiration, some increasing congestive changes and left base atelectatic changes Assessment/Plan 29 y/o F with history of TBI seizures and hypothyroidism who presents to the hospital with copious thick purulent secretions from previous tracheostomy stoma , tachycardia, acute hypoxemia respiratory failure, secondary to healthcare acquired pneumonia. #severe Sepsis secondary to Healthcare acquired PNA #Acute hypoxemic respiratory failure -c/w zithro, azactam (Day3) -c/w nebs PRN -UA, blood, ucx (-) thus far -suction PRN -motrin PRN for pain/fever -unable to give sputum cx -w/numerous abx allergies: PCN, vanco, etc. -ID on board: Dr. Douglas #R/o stomatitis -f/u ENT recs: Dr. Vegas -neck CT without evidence of abnormality #hx increased pulmonary arterial pressure (Chest CT) -f/u ECHO; may be primary/idiopathic -r/o CTEPH #transaminitis likely 2/2 sepsis -improving; c/t monitor # hx seizures -c/w keppra GT #hypothyroidism -c/w synthroid #Functional quadriplegia -c/w home meds: mg ox, MTV minerals, ocular lubricant -c/w suction PRN #Constipation -c/w colace #F/E/N off IVF; lactic has improved continue to follow lytes TF vital per dietary #PPX DVT: hep 5k Sq TID GI: pepcid #Dispo cont'd monitoring on med/surg <Radha Kerr - Last Filed: 10/24/19 11:21> - Note Progress Note: Seen and examined; please see resident note for further information. Agree with above as documented aside from as supplemented by myself. Personally verified all thakkar historical details, PE findings, as well as all labs, imaging, and diagnostics. Discussed at length with resident and indicated consultants. No new complaints, tolerating antibiotics, he dynamically stable and afebrile with no no issues. No bleeding is noted. No stomatitis per ENT consult, negative CT neck. CT of the chest shows multifocal pneumonia. 10 sys ROS not able to be reliably completed due to underlying mentation NAD, tracks and responds to verbal stimuli, resting in bed NC AT EOMI PERRLA HR wnl, s1/2+ Trachea midline with inflamed stoma, no JVD Lungs with mild scattered rales but poor inspiratory effort, w/ sym exp NT ND +BS CN2-12 wnl, moves all 4 ext with seemingly normal strength but difficult neuro exam due to underlying condition Normal mood, not agitated, clinical condition limits judgment and insight Micro reviewed EKG reviewed labs reviewed CT neck and CT chest pending (poor inspiration admission CXR makes PNA difficult to see, want to r/o stomatitis or complications of such) Ordered respiratory viral pannel, urinary Ag, sputum cx A/P Patient presented with sepsis (resolved) and was found to have increased stomal secretions. No new complaints, tolerating antibiotics, he dynamically stable and afebrile with no no issues. No bleeding is noted. No stomatitis per ENT consult, negative CT neck. CT of the chest shows multifocal pneumonia. Secretions are improved and there is no underlying tracheitis. Sepsis is resolved, continue to wean off of oxygen and follow-up cultures. Antibiotic recommendations per infectious disease, at neurological baseline. Not agitated. No further mucus plugging. Problems include: -Sepsis -Acute respiratory failure (On 3L, no steroids, BDs per pulm) -PNA vs. stomatitis -Hx TBI -Hx Seizures -Hx Hypothyroidism -Hx functional quadraplegia -Mucus plugging (PRN suctioning) -Transaminitis (2/2 sepsis, followup US and trend CMP) -PNC allergy (abx per ID) Full Code <Perfecto Clark - Last Filed: 10/24/19 12:12>
[2019-10-24] MEDS: IBUPROFEN 600 MG TABLET (FP) PO PRN ×2 (11:56→18:13)
[2019-10-24] MEDS: MULTIVIT-MINERALS ORAL LIQUID GT SCH (11:57)
--- NOTE | 2019-10-24 12:00 | CONSULT ---
Consult - text type - Consultation Consultation Note: ENT consult 29 yo woman with copious secretions from site of a tracheostomy. Asked to assess for stomal infection. Remote hx of TBI, has not needed tracheal access in a long time, but family does not wish to put her through [place] to have the stoma closed. P/WDWN WF laying comfortably in bed, in NAD Neck: stoma is clean, skin lined, nontender, no erythema or swelling Imp: no evident infection at site of tracheal stoma Reconsult prn
[2019-10-24] MEDS: levETIRAcetam 500 MG/5 ML ORAL SOLUTION (UNIT-DOSE CUPS) PO SCH ×2 (12:53→22:27)
--- NOTE | 2019-10-24 14:51 | ECHO ---
Name: FELIPE SPENCER Exam:Adult Echocardiogram Study Date: 10/24/2019 02:13 PM Age: 29 yrs Reason For Study: Eval for PAH Height: 68 in Weight: 154 lb BSA: 1.8 m2 MMode/2D Measurements & Calculations IVSd: 0.95 cm Ao root diam: 3.0 cm LVIDd: 3.7 cm LA dimension: 3.0 cm LVIDs: 2.4 cm ACS: 2.0 cm LVPWd: 1.0 cm EDV(Teich): 59.7 ml LVOT diam: 2.1 cm ESV(Teich): 19.4 ml RV S Enio: 11.6 cm/sec Doppler Measurements & Calculations MV E max enio: 78.0 cm/sec Ao V2 max: 101.6 cm/sec MV A max enio: 76.5 cm/sec Ao max P.1 mmHg MV E/A: 1.0 Ao V2 mean: 75.3 cm/sec MV dec time: 0.14 sec Ao mean P.5 mmHg Ao V2 VTI: 24.4 cm CARSON(I,D): 2.6 cm2 CARSON(V,D): 2.7 cm2 LV V1 max P.7 mmHg MR max enio: 366.5 cm/sec LV V1 mean P.8 mmHg MR max P.9 mmHg LV V1 max: 82.7 cm/sec LV V1 mean: 64.5 cm/sec LV V1 VTI: 19.1 cm SV(LVOT): 64.0 ml TR max enio: 176.3 cm/sec TR max P.1 mmHg Med Peak E' Enio: 9.5 cm/sec Med E/e': 8.2 Lat Peak E' Enio: 11.0 cm/sec Lat E/e': 7.1 Left Ventricle The left ventricular size, thickness and function are normal. Ejection Fraction = 60%. Right Ventricle The right ventricle is normal in size and function. Atria Normal left and right atrial size and function. Mitral Valve The mitral valve is normal. There is mild mitral regurgitation. Tricuspid Valve The tricuspid valve is normal in structure and function. There is trace tricuspid regurgitation. Ther e was insufficient TR detected to calculate RV systolic pressure. Insufficient TR detected to calculate RVS P. The measured TR peak gradient is 13.1 mmHg. It may not reflect real RVSP. But no other evidence of signif icant pulmonary hypertension. Aortic Valve The aortic valve is normal in structure and function. Pulmonic Valve The pulmonic valve is not well seen, but is grossly normal. Great Vessels The aortic root is normal size. Pericardium/Pleura There is no pericardial effusion. Interpretation Summary The left ventricular size, thickness and function are normal. Ejection Fraction = 60%. The right ventricle is normal in size and function. Normal left and right atrial size and function. The aortic valve is normal in structure and function. The mitral valve is normal. There is mild mitral regurgitation. The tricuspid valve is normal in structure and function. There is trace tricuspid regurgitation. Insufficient TR detected to calculate RVSP. The measured TR peak gradient is 13.1 mmHg. It may not re flect real RVSP. But no other evidence of significant pulmonary hypertension. MD Tiffany Gleason 10/24/2019 02:51 PM
--- NOTE | 2019-10-24 18:00 | PN ---
Progress Note, Physician History of Present Illness: AWAKE, APHASIC AFEBRILE BREATHING NON LABORED AIDE REPORTS OCCASIONAL COUGH WITH THICK SECRETIONS THRU TRACH STOMA - Current Medication List Current Medications: Active Medications Albuterol Sulfate (Ventolin 0.083% Nebulizer Soln -) 1 amp NEB RQID [facility] Last Admin: 10/24/19 15:45 Dose: 1 amp Artificial Tears (Lacri-Lube Eye Ointment -) 1 applic OU HS [facility] Last Admin: 10/23/19 22:05 Dose: 1 appful Docusate Sodium (Colace Liquid -) 50 mg PO DAILY [facility] Last Admin: 10/24/19 09:57 Dose: 50 mg Famotidine (Pepcid) 20 mg NR BID [facility] Last Admin: 10/24/19 09:57 Dose: 20 mg Heparin Sodium (Porcine) (Heparin -) 5,000 unit SQ TID [facility] Last Admin: 10/24/19 15:58 Dose: 5,000 unit Aztreonam 2 gm/ Dextrose 100 mls @ 100 mls/hr IVPB Q8H-IV [facility]; Protocol Last Admin: 10/24/19 17:40 Dose: 100 mls/hr Azithromycin (Zithromax 500mg Ivpb (Pre-Docked)) 500 mg in 250 mls @ 250 mls/ hr IVPB DAILY [facility] Last Admin: 10/24/19 09:58 Dose: 250 mls/hr Ibuprofen (Motrin -) 600 mg PO Q6H PRN PRN Reason: FEVER Last Admin: 10/24/19 11:56 Dose: 600 mg Levetiracetam (Keppra Oral Solution -) 1,500 mg PO BID [facility] Last Admin: 10/24/19 12:53 Dose: 1,500 mg Levothyroxine Sodium (Synthroid -) 100 mcg GT DAILY@0700 [facility] Last Admin: 10/24/19 06:52 Dose: 100 mcg Magnesium Hydroxide (Milk Of Magnesia -) 30 ml GT DAILY [facility] Last Admin: 10/24/19 09:58 Dose: 30 ml Multivitamins/Minerals (Certavite-Antioxidant Liquid) 15 ml GT DAILY [facility] Last Admin: 10/24/19 11:57 Dose: 15 ml - Objective Vital Signs: Vital Signs Temperature 97.7 F 10/24/19 14:19 Pulse Rate 94 H 10/24/19 14:19 Respiratory Rate 20 10/24/19 14:19 Blood Pressure 111/63 10/24/19 14:19 O2 Sat by Pulse Oximetry (%) 99 10/23/19 21:00 Constitutional: Yes: No Distress Eyes: Yes: Conjunctiva Clear Cardiovascular: Yes: Regular Rate and Rhythm, S1, S2 Respiratory: Yes: Rhonchi. No: CTA Bilaterally Gastrointestinal: Yes: Normal Bowel Sounds, Soft. No: Tenderness Edema: LLE: 1+, RLE: 1+ Labs: CBC, BMP 10/24/19 07:35 10/24/19 07:35 INR, PTT INR 1.05 (0.83-1.09) 10/21/19 17:25 Assessment/Plan PNEUMONIA LACTIC ACIDOSIS RESOLVED MULTIPLE ANTIBIOTIC ALLERGIES S/P TBI CONTINUE ZITHROMAX/ AZTREONAM
--- NOTE | 2019-10-24 21:16 | RAPID ---
Physical Examination Vital Signs: Vital Signs Temperature 97.9 F 10/24/19 19:00 Pulse Rate 90 10/24/19 19:00 Respiratory Rate 20 10/24/19 19:00 Blood Pressure 104/47 L 10/24/19 19:00 O2 Sat by Pulse Oximetry (%) 99 10/23/19 21:00 Labs: CBC, BMP 10/24/19 07:35 10/24/19 07:35 Rapid Response - Rapid Response Assessment: Rapid response called at 20:46 and the night team responded immediately. Pt reported to have persistent desaturation: Pt received scheduled feeds at 18:00, subsequently presented with crackles and increased oral secretions, suction provided, PRN nebs provided, vitals rechecked and saturation still low in 80s. On arrival of team, pt found laying in bed alert and awake, occassionally coughing. Secretions in tracheostomy. 82/40, manual repeat 105/60, HR 100, RR 20 , 90%, 100degrees. Suction performed. Oxygen provided at 5L. Lung findings significant for crackle on LEFT. Hear RRR s1 s2. Diaphoretic. Repeat vs 105/60, HR 100, RR 20, 95%. Ordered CBC, CMP, cardiac profile CXR, vanessa culutre, lactic acid, meropenem, albuterol. Held aztreonam and azithromycin.
[2019-10-24] MEDS ORDERED: MEROPENEM 1 GM VIAL (RESTRICTED TO ID) IVPB ONE (22:17)
[2019-10-24] MEDS ORDERED: DEXTROSE 5%-WATER 100 ML IVPB ONE (22:17)
[2019-10-24] MEDS: MEROPENEM 1 GM in DEXTROSE 5%-WATER 100 ML IVPB SCH (22:26)
[2019-10-24] MEDS: OCULAR LUBRICANT OPHTHALMIC OINTMENT 7 GM TUBE OU SCH (23:00)
[2019-10-25] MEDS: FAMOTIDINE 40 MG/5 ML ORAL SUSPENSION NR SCH ×3 (00:04→22:00)
[2019-10-25] MEDS: ALBUTEROL SO4 0.083% IH SOL 2.5 MG/3 ML VIAL.NEB. NEB SCH ×2 (00:30→04:28)
[2019-10-25] MEDS ORDERED: DEXTROSE 5%-WATER 100 ML IVPB ONE ×2 (02:49→18:04)
[2019-10-25] MEDS ORDERED: MEROPENEM 1 GM VIAL (RESTRICTED TO ID) IVPB ONE ×2 (02:49→18:04)
[2019-10-25] MEDS: MEROPENEM 1 GM in DEXTROSE 5%-WATER 100 ML IVPB SCH ×3 (02:56→18:28)
[2019-10-25] MEDS: HEPARIN NA (PORCINE) 5,000 UNITS/ML 1ML VIAL SQ SCH ×3 (06:57→22:00)
[2019-10-25] MEDS: LEVOTHYROXINE NA 100 MCG TABLET (FP) GT SCH (06:57)
[2019-10-25 08:26] LABS: BASO % 0.2 % (0-2.0); EOS % 0.5 % (0-4.5); HEMATOCRIT 28.7 % (32.4-45.2); HEMOGLOBIN 9.8 GM/dL (10.7-15.3); LYMPH % 18.5 % (8-40); MCH 36.8 pg (25.7-33.7); MCHC 34.3 g/dl (32.0-36.0); MEAN CELL VOLUME 107.4 fl (80-96); MEAN PLT VOLUME 8.4 fl (7.5-11.1); MONO % 6.9 % (3.8-10.2); NEUT % 73.9 % (42.8-82.8); PLATELET COUNT 174 K/MM3 (134-434); RBC 2.67 M/mm3 (3.60-5.2); RDW 15.2 % (11.6-15.6); WHITE BLOOD COUNT 9.3 K/mm3 (4.0-10.0)
[2019-10-25 08:43] LABS: BLOOD UREA NITROGEN 11.9 mg/dL (7-18); CALCIUM 8.4 mg/dL (8.5-10.1); CREATININE 0.4 mg/dL (0.55-1.3); MAGNESIUM 1.9 mg/dL (1.8-2.4); PHOSPHOROUS 3.8 mg/dL (2.5-4.9); POTASSIUM 3.6 mmol/L (3.5-5.1)
[2019-10-25] MEDS: MULTIVIT-MINERALS ORAL LIQUID GT SCH (09:45)
[2019-10-25] MEDS: levETIRAcetam 500 MG/5 ML ORAL SOLUTION (UNIT-DOSE CUPS) PO SCH ×2 (09:45→22:00)
[2019-10-25] MEDS: DOCUSATE NA 100 MG/10 ML UNIT-DOSE CUPS PO SCH (09:45)
[2019-10-25] MEDS: MAGNESIUM HYDROX 2400MG/30ML ORAL SUSPENSION 30 ML CUP GT SCH (10:38)
[2019-10-25] MEDS: IBUPROFEN 600 MG TABLET (FP) PO PRN ×2 (10:38→20:38)
--- NOTE | 2019-10-25 10:48 | PN ---
Progress Note (short form) - Note Progress Note: Hospitalist Medicine Last night, rapid response called likely 2/2 mucus plugging. Pt was with crackles in LLL, desaturation to 80's. Improved w/ suctioning. azactam/zithro were held. She was started on meropenem. Today, pt appears very comfortable. Used yes/no chart to communicate. Updated pt's Aunt Margaret over phone. Vitals 10/25/19 09:43 Temperature 98.9 F Pulse Rate 74 Respiratory 22 H Rate Blood Pressure 95/57 L Physical Exam general: resting in bed. appears comfortable HEENT: NCAT, PERRLA neck: supple. +stoma clean, without secretions cardio: s1, s2 rrr. no r/m/g pulm: +improved rhonchi. no accessory m usage abdomen: nontender, nondistended. +GT in place. no erythema LE: contracted, no edema. pulses intact Laboratory Tests 10/25/19 10/25/19 06:52 06:52 WBC 9.3 Hgb 9.8 L Hct 28.7 L Plt Count 174 Sodium 141 Potassium 3.6 Chloride 107 Carbon Dioxide 29 BUN 11.9 Creatinine 0.4 L Random Glucose 70 L Microbiology 10/23/19 09:15 Urine - Urine - Catheterized Legionella Antigen - Final 10/23/19 09:15 Urine - Urine - Catheterized Streptococcus pneumoniae Antigen (M - Final 10/21/19 17:28 Urine - Urine Clean Catch Urine Culture - Final NO GROWTH OBTAINED 10/21/19 11:46 Blood - Peripheral Venous Blood Culture - Preliminary NO GROWTH OBTAINED AFTER 72 HOURS, INCUBATION TO CONTINUE FOR 2 DAYS. 10/21/19 11:46 Blood - Peripheral Venous Blood Culture - Preliminary NO GROWTH OBTAINED AFTER 72 HOURS, INCUBATION TO CONTINUE FOR 2 DAYS. EKG: +sinus tach, qtc 471ms ECHO: EF 60%, mild MR, insufficient TR to calculate RSVP. no significant pulm HTN Imaging 10/21 CXR: weak inspiration with bibasilar atelectasis. 10/[address]: no discrete noncontrast CT abnormality involving the neck soft tissues. Tracheostomy site is seen. Encephalomalacia and ventriculomegaly also visualized. 10/[address]: left lower lobe infiltrate, probable small L upper lobe infiltrate, trace L pleural effusion. main pulmonary artery diameter appears mildly prominent measuring 3cm. additional evaluation for possible increased pulmonary arterial pressure is suggested. 10/24 CXR: weak inspiration, some increasing congestive changes and left base atelectatic changes 10/24 repeat CXR: weak inspiration with atelectasis and infiltrate at the left lung base, normal mediastinum, RUQ clips. UCHE and R lung are clear 10/25 CTAP: L basilar consolidation and atelectasis and small pleural effusions with additional atelectatic changes in the right lower lobe. ilateral ovarian cysts no acute pathology in abdomen. Assessment/Plan 29 y/o F with history of TBI seizures and hypothyroidism who presents to the hospital with copious thick purulent secretions from previous tracheostomy stoma , tachycardia, acute hypoxemia respiratory failure, secondary to healthcare acquired pneumonia. #severe Sepsis secondary to Healthcare acquired PNA #Acute hypoxemic respiratory failure -was on zithro, azactam (received 3 days) was switched to meropenem last night -c/w nebs PRN, suction PRN -chest PT BID -elevate HOB -UA, blood, ucx (-) thus far -motrin PRN for pain/fever -unable to give sputum cx -w/numerous abx allergies: PCN, vanco, etc. -ID on board: Dr. Douglas #R/o stomatitis -pt seen by Dr. Vegas; no acute recs -neck CT without evidence of abnormality #hx increased pulmonary arterial pressure (Chest CT) -ECHO: without evidence of significant pulm HTN. # hx seizures -c/w keppra GT #hypothyroidism -c/w synthroid #Functional quadriplegia -c/w home meds: mg ox, MTV minerals, ocular lubricant -c/w suction PRN #Constipation -c/w colace #F/E/N off IVF; lactic has improved; will avoid as congested continue to follow lytes TF vital per dietary #PPX DVT: hep 5k Sq TID GI: pepcid #Dispo cont'd monitoring on med/surg Aunt Margaret updated <Radha Kerr - Last Filed: 10/25/19 17:12> - Note Progress Note: Seen and examined; please see resident note for further information. Agree with above as documented aside from as supplemented by myself. Personally verified all thakkar historical details, PE findings, as well as all labs, imaging, and diagnostics. Discussed at length with resident and indicated consultants. For some reason was broadened to meropenem after the rapid; told resident team to d/w ID and change back to indicated therapy if needed. Overnight events appreciated. No new complaints. Stable clinical exam today. 10 sys ROS not able to be reliably completed due to underlying mentation NAD, tracks and responds to verbal stimuli, resting in bed NC AT EOMI PERRLA HR wnl, s1/2+ Trachea midline with inflamed stoma, no JVD Lungs with mild scattered rales but poor inspiratory effort, w/ sym exp. Improved compared to prior. NT ND +BS CN2-12 wnl, moves all 4 ext with seemingly normal strength but difficult neuro exam due to underlying condition Normal mood, not agitated, clinical condition limits judgment and insight Micro reviewed EKG reviewed labs reviewed CT neck and CT chest pending (poor inspiration admission CXR makes PNA difficult to see, want to r/o stomatitis or complications of such) A/P Patient presented with sepsis (resolved) and was found to have increased stomal secretions. No new complaints, tolerating antibiotics, he dynamically stable and afebrile with no no issues. No bleeding is noted. No stomatitis per ENT consult, negative CT neck. CT of the chest shows multifocal pneumonia. Secretions are improved and there is no underlying tracheitis. Sepsis is resolved, continue to wean off of oxygen and follow-up cultures. Antibiotic recommendations per infectious disease, at neurological baseline. Not agitated. No further mucus plugging. Problems include: -Sepsis -Acute respiratory failure (On 3L, no steroids, BDs per pulm) -PNA -Hx TBI -Hx Seizures -Hx Hypothyroidism -Hx functional quadraplegia -Mucus plugging (PRN suctioning) -Transaminitis (2/2 sepsis, followup US and trend CMP) -PNC allergy (abx per ID) *Stomatitis ruled out by imaging and ENT consult Disposition pending weaning from IV abx and O2. Full Code <Perfecto Clark - Last Filed: 10/26/19 09:00>
[2019-10-25 11:59] LABS: ANISOCYTOSIS 1+; MACROCYTOSIS 0; PLATELET ESTIMATE NORMAL
[2019-10-25] MEDS ORDERED: ALBUTEROL SO4 0.083% IH SOL 2.5 MG/3 ML VIAL.NEB. NEB PRN (13:51)
--- NOTE | 2019-10-25 14:31 | PN ---
Progress Note (short form) - Note Progress Note: PULMONARY Reports shortness of breath, cough, chest congestion. No fevers recorded. Vital Signs Period Temp Pulse Resp BP Sys/Cramer Pulse Ox Last 24 Hr 97.9 F-98.9 F 74-101 20-24 86-104/47-57 99 Gen: mildly tachypneic at rest Heart: RRR Lung: bilateral rhonchi Abd: soft, nontender Ext: no edema CBC, BMP 10/25/19 06:52 10/25/19 06:52 Active Medications Albuterol Sulfate (Ventolin 0.083% Nebulizer Soln -) 1 amp NEB RQ4H PRN PRN Reason: SHORT OF BREATH/WHEEZING Stop: 10/26/19 00:00 Albuterol/Ipratropium (Duoneb -) 1 amp NEB RQID [facility] Artificial Tears (Lacri-Lube Eye Ointment -) 1 applic OU HS [facility] Last Admin: 10/24/19 23:00 Dose: 1 appful Docusate Sodium (Colace Liquid -) 50 mg PO DAILY [facility] Last Admin: 10/25/19 09:45 Dose: 50 mg Famotidine (Pepcid) 20 mg NR BID [facility] Last Admin: 10/25/19 09:47 Dose: 20 mg Heparin Sodium (Porcine) (Heparin -) 5,000 unit SQ TID [facility] Last Admin: 10/25/19 06:57 Dose: 5,000 unit Aztreonam 2 gm/ Dextrose 100 mls @ 100 mls/hr IVPB Q8H-IV [facility]; Protocol Last Admin: 10/24/19 17:40 Dose: 100 mls/hr Azithromycin (Zithromax 500mg Ivpb (Pre-Docked)) 500 mg in 250 mls @ 250 mls/ hr IVPB DAILY [facility] Last Admin: 10/24/19 09:58 Dose: 250 mls/hr Meropenem 1 gm/ Dextrose 100 mls @ 200 mls/hr IVPB Q8H-IV [facility] Last Admin: 10/25/19 02:56 Dose: 200 mls/hr Ibuprofen (Motrin -) 600 mg PO Q6H PRN PRN Reason: FEVER Last Admin: 10/25/19 10:38 Dose: 600 mg Levetiracetam (Keppra Oral Solution -) 1,500 mg PO BID [facility] Last Admin: 10/25/19 09:45 Dose: 1,500 mg Levothyroxine Sodium (Synthroid -) 100 mcg GT DAILY@0700 [facility] Last Admin: 10/25/19 06:57 Dose: 100 mcg Magnesium Hydroxide (Milk Of Magnesia -) 30 ml GT DAILY [facility] Last Admin: 10/25/19 10:38 Dose: 30 ml Multivitamins/Minerals (Certavite-Antioxidant Liquid) 15 ml GT DAILY [facility] Last Admin: 10/25/19 09:45 Dose: 15 ml A/P Acute Hypoxic Respiratory Failure Pneumonia Sepsis Lactic Acidosis Elevated LFTs h/o Traumatic Brain Injury Seizure Disorder Hypothyroidism Functional Quadriplegia - continue antibiotics - chest PT - inhaled bronchodilators - O2 to keep SpO2 >90% - DVT prophylaxis
[2019-10-25] MEDS: ALBUTEROL SO4 2.5/IPRATROPIUM 0.5 INH SOL 3 ML VIAL.NEB. NEB SCH ×2 (15:46→20:30)
[2019-10-25] MEDS ORDERED: PT OWN MED DRAWER 7, Y5N ONE (20:55)
[2019-10-25] MEDS: OCULAR LUBRICANT OPHTHALMIC OINTMENT 7 GM TUBE OU SCH (22:41)
[2019-10-26] MEDS ORDERED: MEROPENEM 1 GM VIAL (RESTRICTED TO ID) IVPB ONE ×2 (01:11→08:45)
[2019-10-26] MEDS ORDERED: DEXTROSE 5%-WATER 100 ML IVPB ONE ×2 (01:12→08:45)
[2019-10-26] MEDS: MEROPENEM 1 GM in DEXTROSE 5%-WATER 100 ML IVPB SCH (01:16)
[2019-10-26] MEDS ORDERED: ALBUTEROL SO4 0.083% IH SOL 2.5 MG/3 ML VIAL.NEB. NEB PRN (02:00)
[2019-10-26] MEDS: HEPARIN NA (PORCINE) 5,000 UNITS/ML 1ML VIAL SQ SCH ×3 (05:55→21:28)
[2019-10-26] MEDS: IBUPROFEN 600 MG TABLET (FP) PO PRN (05:55)
[2019-10-26] MEDS: LEVOTHYROXINE NA 100 MCG TABLET (FP) GT SCH (06:05)
[2019-10-26 08:13] LABS: BASO % 0.2 % (0-2.0); EOS % 0.3 % (0-4.5); HEMATOCRIT 28.5 % (32.4-45.2); HEMOGLOBIN 9.7 GM/dL (10.7-15.3); LYMPH % 15.5 % (8-40); MCH 36.5 pg (25.7-33.7); MCHC 33.9 g/dl (32.0-36.0); MEAN CELL VOLUME 107.8 fl (80-96); MEAN PLT VOLUME 8.3 fl (7.5-11.1); MONO % 5.9 % (3.8-10.2); NEUT % 78.1 % (42.8-82.8); PLATELET COUNT 185 K/MM3 (134-434); RBC 2.65 M/mm3 (3.60-5.2); RDW 15.5 % (11.6-15.6); WHITE BLOOD COUNT 11.5 K/mm3 (4.0-10.0)
[2019-10-26 08:39] LABS: CALCIUM 8.6 mg/dL (8.5-10.1); CREATININE 0.4 mg/dL (0.55-1.3); MAGNESIUM 1.8 mg/dL (1.8-2.4); PHOSPHOROUS 2.6 mg/dL (2.5-4.9); POTASSIUM 3.7 mmol/L (3.5-5.1)
[2019-10-26] MEDS: ALBUTEROL SO4 2.5/IPRATROPIUM 0.5 INH SOL 3 ML VIAL.NEB. NEB SCH ×4 (08:45→20:25)
--- NOTE | 2019-10-26 10:07 | PN ---
Progress Note (short form) - Note Progress Note: PULMONARY APPEARS IN NO DISTRESS VSS/AFEBRILE Gen: mildly tachypneic at rest Heart: RRR Lung: bilateral rhonchi Abd: soft, nontender Ext: no edema A/P Acute Hypoxic Respiratory Failure resolving Pneumonia Sepsis Lactic Acidosis Elevated LFTs h/o Traumatic Brain Injury Seizure Disorder Hypothyroidism Functional Quadriplegia - continue antibiotics - chest PT - inhaled bronchodilators - O2 to keep SpO2 >90% - DVT prophylaxis - check influ Sunita GARLAND MD
[2019-10-26] MEDS: levETIRAcetam 500 MG/5 ML ORAL SOLUTION (UNIT-DOSE CUPS) PO SCH ×2 (10:37→21:29)
[2019-10-26] MEDS: MULTIVIT-MINERALS ORAL LIQUID GT SCH (10:38)
[2019-10-26] MEDS: FAMOTIDINE 40 MG/5 ML ORAL SUSPENSION NR SCH ×2 (10:39→21:29)
[2019-10-26] MEDS: MAGNESIUM HYDROX 2400MG/30ML ORAL SUSPENSION 30 ML CUP GT SCH (10:46)
[2019-10-26] MEDS: DOCUSATE NA 100 MG/10 ML UNIT-DOSE CUPS PO SCH (10:46)
[2019-10-26] MEDS: AZITHROMYCIN IVPB 500 MG/250 ML BAG IVPB SCH (10:46)
[2019-10-26] MEDS: AZTREONAM 2 GM in DEXTROSE 5%-WATER 100 ML IVPB SCH ×2 (13:11→20:25)
--- NOTE | 2019-10-26 13:21 | PN ---
Progress Note (short form) - Note Progress Note: Hospitalist Medicine In good spirits today, on NC. Used yes/no sign to communicate. Endorses feeling better. Vitals 10/26/19 06:00 Temperature 98.3 F Pulse Rate 91 H Respiratory 22 H Rate Blood Pressure 94/52 L Physical Exam general: resting in bed. appears comfortable HEENT: NCAT, PERRLA neck: supple. +stoma clean, without secretions cardio: s1, s2 rrr. no r/m/g pulm: +scattered rhonchi. no accessory m usage abdomen: nontender, nondistended. +GT in place. no erythema LE: contracted, no edema. pulses intact Laboratory Tests 10/26/19 10/26/19 07:22 07:22 WBC 11.5 H Hgb 9.7 L Hct 28.5 L Plt Count 185 Sodium 143 Potassium 3.7 Chloride 109 H Carbon Dioxide 27 Anion Gap 7 L BUN 10.0 Creatinine 0.4 L Microbiology 10/23/19 09:15 Urine - Urine - Catheterized Legionella Antigen - Final 10/23/19 09:15 Urine - Urine - Catheterized Streptococcus pneumoniae Antigen (M - Final 10/21/19 17:28 Urine - Urine Clean Catch Urine Culture - Final NO GROWTH OBTAINED 10/21/19 11:46 Blood - Peripheral Venous Blood Culture - Final NO GROWTH AFTER 5 DAYS INCUBATION 10/21/19 11:46 Blood - Peripheral Venous Blood Culture - Final NO GROWTH AFTER 5 DAYS INCUBATION Imaging EKG: +sinus tach, qtc 471ms ECHO: EF 60%, mild MR, insufficient TR to calculate RSVP. no significant pulm HTN 10/21 CXR: weak inspiration with bibasilar atelectasis. 10/[address]: no discrete noncontrast CT abnormality involving the neck soft tissues. Tracheostomy site is seen. Encephalomalacia and ventriculomegaly also visualized. 10/[address]: left lower lobe infiltrate, probable small L upper lobe infiltrate, trace L pleural effusion. main pulmonary artery diameter appears mildly prominent measuring 3cm. additional evaluation for possible increased pulmonary arterial pressure is suggested. 10/24 CXR: weak inspiration, some increasing congestive changes and left base atelectatic changes 10/24 repeat CXR: weak inspiration with atelectasis and infiltrate at the left lung base, normal mediastinum, RUQ clips. UCHE and R lung are clear 10/25 CTAP: L basilar consolidation and atelectasis and small pleural effusions with additional atelectatic changes in the right lower lobe. ilateral ovarian cysts no acute pathology in abdomen. 10/26: CXR: mild atelectatic changes in the L lung base, cannot r/o infiltrates. Assessment/Plan 29 y/o F with history of TBI seizures and hypothyroidism who presents to the hospital with copious thick purulent secretions from previous tracheostomy stoma , tachycardia, acute hypoxemia respiratory failure, secondary to healthcare acquired pneumonia. #severe Sepsis secondary to Healthcare acquired PNA #Acute hypoxemic respiratory failure -have restarted zithro, azactam and d/c meropenem -c/w nebs PRN, suction PRN -chest PT BID -elevate HOB -UA, blood, ucx (-) thus far -f/u flu testing -motrin PRN for pain/fever -unable to give sputum cx -w/numerous abx allergies: PCN, vanco, etc. -ID on board: Dr. Douglas #R/o stomatitis -pt seen by Dr. Vegas; no acute recs -neck CT without evidence of abnormality #hx increased pulmonary arterial pressure (Chest CT) -ECHO: without evidence of significant pulm HTN. # hx seizures -c/w keppra GT #hypothyroidism -c/w synthroid #Functional quadriplegia -c/w home meds: mg ox, MTV minerals, ocular lubricant -c/w suction PRN #Constipation -c/w colace #F/E/N off IVF; lactic has improved; will avoid as congested continue to follow lytes TF vital per dietary #PPX DVT: hep 5k Sq TID GI: pepcid #Dispo cont'd monitoring on med/surg Aunt Margaret updated <Radha Kerr - Last Filed: 10/26/19 13:29> - Note Progress Note: Seen and examined; please see resident note for further information. Agree with above as documented aside from as supplemented by myself. Personally verified all thakkar historical details, PE findings, as well as all labs, imaging, and diagnostics. Discussed at length with resident and indicated consultants. For some reason was broadened to meropenem after the rapid; told resident team to d/w ID and change back to indicated therapy if needed. Overnight events appreciated. No new complaints. Stable clinical exam today. 10 sys ROS not able to be reliably completed due to underlying mentation NAD, tracks and responds to verbal stimuli, resting in bed NC AT EOMI PERRLA HR wnl, s1/2+ Trachea midline with inflamed stoma, no JVD Lungs with mild scattered rales but poor inspiratory effort, w/ sym exp. Improved compared to prior. NT ND +BS CN2-12 wnl, moves all 4 ext with seemingly normal strength but difficult neuro exam due to underlying condition Normal mood, not agitated, clinical condition limits judgment and insight Micro reviewed EKG reviewed labs reviewed CT neck and CT chest pending (poor inspiration admission CXR makes PNA difficult to see, want to r/o stomatitis or complications of such) A/P Patient presented with sepsis (resolved) and was found to have multilobar pneumonia with likely aspiration component. Weaning from O2 and convert to PO abx via GT as tolerated. Once on oral agents and pre/post completed to assess O2 requirements can dispo back to their prior arrangement. Problems include: -Sepsis -Acute respiratory failure (On 3L, no steroids, BDs per pulm) -PNA -Hx TBI -Hx Seizures -Hx Hypothyroidism -Hx functional quadraplegia -Mucus plugging (PRN suctioning) -Transaminitis (2/2 sepsis, followup US and trend CMP) -PNC allergy (abx per ID) *Stomatitis ruled out by imaging and ENT consult Disposition pending weaning from IV abx and O2. Full Code <Perfecto Clark - Last Filed: 10/27/19 07:48>
[2019-10-26] MEDS: OCULAR LUBRICANT OPHTHALMIC OINTMENT 7 GM TUBE OU SCH (21:29)
[2019-10-27] MEDS: AZTREONAM 2 GM in DEXTROSE 5%-WATER 100 ML IVPB SCH ×3 (01:39→20:02)
[2019-10-27] MEDS: LEVOTHYROXINE NA 100 MCG TABLET (FP) GT SCH (06:12)
[2019-10-27] MEDS: HEPARIN NA (PORCINE) 5,000 UNITS/ML 1ML VIAL SQ SCH ×3 (06:12→21:09)
[2019-10-27] MEDS: ALBUTEROL SO4 2.5/IPRATROPIUM 0.5 INH SOL 3 ML VIAL.NEB. NEB SCH ×4 (07:50→20:52)
[2019-10-27] MEDS ORDERED: PT OWN MED DRAWER 7, Y5N ONE (11:31)
[2019-10-27] MEDS: levETIRAcetam 500 MG/5 ML ORAL SOLUTION (UNIT-DOSE CUPS) PO SCH ×2 (11:35→21:08)
[2019-10-27] MEDS: FAMOTIDINE 40 MG/5 ML ORAL SUSPENSION NR SCH ×2 (11:35→21:08)
[2019-10-27] MEDS: MULTIVIT-MINERALS ORAL LIQUID GT SCH (11:36)
[2019-10-27] MEDS: MAGNESIUM HYDROX 2400MG/30ML ORAL SUSPENSION 30 ML CUP GT SCH (11:36)
[2019-10-27] MEDS: DOCUSATE NA 100 MG/10 ML UNIT-DOSE CUPS PO SCH (11:36)
[2019-10-27] MEDS: AZITHROMYCIN IVPB 500 MG/250 ML BAG IVPB SCH ×2 (11:37→17:02)
--- NOTE | 2019-10-27 12:04 | PN ---
Progress Note (short form) - Note Progress Note: PULMONARY APPEARS IN NO DISTRESS VSS/AFEBRILE Gen: mildly tachypneic at rest Heart: RRR Lung: bilateral rhonchi Abd: soft, nontender Ext: no edema INFLU A/B NEGATIVE A/P Acute Hypoxic Respiratory Failure resolving Pneumonia Sepsis Lactic Acidosis Elevated LFTs h/o Traumatic Brain Injury Seizure Disorder Hypothyroidism Functional Quadriplegia - continue antibiotics - chest PT - inhaled bronchodilators - O2 to keep SpO2 >90% - DVT prophylaxis Sunita GARLAND MD
--- NOTE | 2019-10-27 12:45 | PN ---
Progress Note (short form) - Note Progress Note: Hospitalist Medicine Resting in bed. Used yes/no sign to communicate w/pt. Appears comfortable. Will do pre/post today. Will need to be off 02 24hrs prior to d/c Vitals 10/27/19 10/27/19 10/27/19 06:14 08:43 09:59 Temperature 97.5 F L Pulse Rate 77 Respiratory 18 Rate Blood Pressure 94/51 L O2 Sat by Pulse 93 L 97 Oximetry (%) Oxygen Flow 3 Rate Physical Exam general: resting in bed. appears comfortable HEENT: NCAT, PERRLA neck: supple. +stoma clean cardio: s1, s2 rrr. no r/m/g pulm: CTA b/l. no accessory m usage . +coughing intermittently abdomen: nontender, nondistended. +GT in place. no erythema LE: contracted, no edema. pulses intact Laboratory Tests 10/26/19 10/26/19 07:22 07:22 WBC 11.5 H Hgb 9.7 L Hct 28.5 L Plt Count 185 Sodium 143 Potassium 3.7 Chloride 109 H Carbon Dioxide 27 Anion Gap 7 L BUN 10.0 Creatinine 0.4 L Microbiology 10/23/19 09:15 Urine - Urine - Catheterized Legionella Antigen - Final 10/23/19 09:15 Urine - Urine - Catheterized Streptococcus pneumoniae Antigen (M - Final 10/21/19 17:28 Urine - Urine Clean Catch Urine Culture - Final NO GROWTH OBTAINED 10/21/19 11:46 Blood - Peripheral Venous Blood Culture - Final NO GROWTH AFTER 5 DAYS INCUBATION 10/21/19 11:46 Blood - Peripheral Venous Blood Culture - Final NO GROWTH AFTER 5 DAYS INCUBATION Imaging EKG: +sinus tach, qtc 471ms ECHO: EF 60%, mild MR, insufficient TR to calculate RSVP. no significant pulm HTN 10/21 CXR: weak inspiration with bibasilar atelectasis. 10/[address]: no discrete noncontrast CT abnormality involving the neck soft tissues. Tracheostomy site is seen. Encephalomalacia and ventriculomegaly also visualized. 10/[address]: left lower lobe infiltrate, probable small L upper lobe infiltrate, trace L pleural effusion. main pulmonary artery diameter appears mildly prominent measuring 3cm. additional evaluation for possible increased pulmonary arterial pressure is suggested. 10/24 CXR: weak inspiration, some increasing congestive changes and left base atelectatic changes 10/24 repeat CXR: weak inspiration with atelectasis and infiltrate at the left lung base, normal mediastinum, RUQ clips. UCHE and R lung are clear 10/25 CTAP: L basilar consolidation and atelectasis and small pleural effusions with additional atelectatic changes in the right lower lobe. ilateral ovarian cysts no acute pathology in abdomen. 10/26: CXR: mild atelectatic changes in the L lung base, cannot r/o infiltrates. Assessment/Plan 29 y/o F with history of TBI seizures and hypothyroidism who presents to the hospital with copious thick purulent secretions from previous tracheostomy stoma , tachycardia, acute hypoxemia respiratory failure, secondary to healthcare acquired pneumonia. #severe Sepsis secondary to Healthcare acquired PNA #Acute hypoxemic respiratory failure -have restarted zithro, azactam and d/c meropenem -c/w nebs PRN, suction PRN -chest PT BID -elevate HOB -UA, blood, ucx (-) thus far -f/u pre and post -motrin PRN for pain/fever -unable to give sputum cx -w/numerous abx allergies: PCN, vanco, etc. -ID on board: Dr. Douglas #R/o stomatitis -pt seen by Dr. Vegas; no acute recs -neck CT without evidence of abnormality #hx increased pulmonary arterial pressure (Chest CT) -ECHO: without evidence of significant pulm HTN. # hx seizures -c/w keppra GT #hypothyroidism -c/w synthroid #Functional quadriplegia -c/w home meds: mg ox, MTV minerals, ocular lubricant -c/w suction PRN #Constipation -c/w colace #F/E/N off IVF; lactic has improved; will avoid as congested continue to follow lytes TF vital per dietary #PPX DVT: hep 5k Sq TID GI: pepcid #Dispo cont'd monitoring on med/surg will need pre+post, off 02 24hrs prior to d/c still on IV abx, will need switch to PO prior to d/c from [facility] <Radha Kerr - Last Filed: 10/27/19 12:47> - Note Progress Note: Seen and examined; please see resident note for further information. Agree with above as documented aside from as supplemented by myself. Personally verified all thakkar historical details, PE findings, as well as all labs, imaging, and diagnostics. Discussed at length with resident and indicated consultants. For some reason was broadened to meropenem after the rapid; told resident team to d/w ID and change back to indicated therapy if needed. Overnight events appreciated. No new complaints. Stable clinical exam today. 10 sys ROS not able to be reliably completed due to underlying mentation NAD, tracks and responds to verbal stimuli, resting in bed NC AT EOMI PERRLA HR wnl, s1/2+ Trachea midline with inflamed stoma, no JVD Lungs with mild scattered rales but poor inspiratory effort, w/ sym exp. Improved compared to prior. NT ND +BS CN2-12 wnl, moves all 4 ext with seemingly normal strength but difficult neuro exam due to underlying condition Normal mood, not agitated, clinical condition limits judgment and insight Micro reviewed EKG reviewed labs reviewed CT neck and CT chest pending (poor inspiration admission CXR makes PNA difficult to see, want to r/o stomatitis or complications of such) A/P Patient presented with sepsis (resolved) and was found to have multilobar pneumonia with likely aspiration component. Weaning from O2 and convert to PO abx via GT as tolerated. Once on oral agents and pre/post completed to assess O2 requirements can dispo back to their prior arrangement. CXR reviewed Pending weaning off O2 and change to PO. IV access issue so placed IV in foot. Problems include: -Sepsis -Acute respiratory failure (On 3L, no steroids, BDs per pulm) -PNA -Hx TBI -Hx Seizures -Hx Hypothyroidism -Hx functional quadraplegia -Mucus plugging (PRN suctioning) -Transaminitis (2/2 sepsis, followup US and trend CMP) -PNC allergy (abx per ID) *Stomatitis ruled out by imaging and ENT consult Disposition pending weaning from IV abx and O2. Full Code <Perfecto Clark - Last Filed: 10/28/19 13:54>
--- NOTE | 2019-10-27 14:25 | EKG ---
Test Reason : Blood Pressure : / mmHG Vent. Rate : 105 BPM Atrial Rate : 105 BPM P-R Int : 144 ms QRS Dur : 076 ms QT Int : 330 ms P-R-T Axes : 047 023 029 degrees QTc Int : 436 ms SINUS TACHYCARDIA POSSIBLE LEFT ATRIAL ENLARGEMENT WHEN COMPARED WITH ECG OF 21-OCT-2019 11:01, ST NO LONGER DEPRESSED IN ANTERIOR LEADS NONSPECIFIC T WAVE ABNORMALITY, IMPROVED IN INFERIOR LEADS NONSPECIFIC T WAVE ABNORMALITY NO LONGER EVIDENT IN ANTEROLATERAL LEADS Confirmed by MARY BRADSHAW MD ([id number]) on 10/27/2019 2:25:11 PM Referred By: Confirmed By:MARY BRADSHAW MD
[2019-10-27] MEDS: IBUPROFEN 600 MG TABLET (FP) PO PRN (15:10)
--- NOTE | 2019-10-27 20:22 | PN ---
Progress Note, Physician History of Present Illness: AWAKE, APHASIC AFEBRILE BREATHING NON LABORED AIDE REPORTS LESS COUGH/ TRACHEAL SECRETIONS - Current Medication List Current Medications: Active Medications Albuterol Sulfate (Ventolin 0.083% Nebulizer Soln -) 1 amp NEB Q4H PRN PRN Reason: SHORT OF BREATH/WHEEZING Last Admin: 10/26/19 02:00 Dose: 1 amp Albuterol/Ipratropium (Duoneb -) 1 amp NEB RQID [facility] Last Admin: 10/27/19 16:06 Dose: Not Given Artificial Tears (Lacri-Lube Eye Ointment -) 1 applic OU HS [facility] Last Admin: 10/26/19 21:29 Dose: 1 appful Docusate Sodium (Colace Liquid -) 50 mg PO DAILY [facility] Last Admin: 10/27/19 11:36 Dose: Not Given Famotidine (Pepcid) 20 mg NR BID [facility] Last Admin: 10/27/19 11:35 Dose: 20 mg Heparin Sodium (Porcine) (Heparin -) 5,000 unit SQ TID [facility] Last Admin: 10/27/19 15:04 Dose: 5,000 unit Aztreonam 2 gm/ Dextrose 100 mls @ 100 mls/hr IVPB Q8H-IV JACQUELIN; Protocol Last Admin: 10/27/19 20:02 Dose: 100 mls/hr Azithromycin (Zithromax 500mg Ivpb (Pre-Docked)) 500 mg in 250 mls @ 250 mls/ hr IVPB DAILY [facility] Last Admin: 10/27/19 17:02 Dose: 250 mls/hr Ibuprofen (Motrin -) 600 mg PO Q6H PRN PRN Reason: FEVER Last Admin: 10/27/19 15:10 Dose: 600 mg Levetiracetam (Keppra Oral Solution -) 1,500 mg PO BID [facility] Last Admin: 10/27/19 11:35 Dose: 1,500 mg Levothyroxine Sodium (Synthroid -) 100 mcg GT DAILY@0700 [facility] Last Admin: 10/27/19 06:12 Dose: 100 mcg Magnesium Hydroxide (Milk Of Magnesia -) 30 ml GT DAILY [facility] Last Admin: 10/27/19 11:36 Dose: 30 ml Multivitamins/Minerals (Certavite-Antioxidant Liquid) 15 ml GT DAILY [facility] Last Admin: 10/27/19 11:36 Dose: 15 ml - Objective Vital Signs: Vital Signs Temperature 98.1 F 10/27/19 15:07 Pulse Rate 83 10/27/19 15:07 Respiratory Rate 18 10/27/19 15:07 Blood Pressure 94/47 L 10/27/19 15:07 O2 Sat by Pulse Oximetry (%) 97 10/27/19 09:59 Constitutional: Yes: No Distress Cardiovascular: Yes: Regular Rate and Rhythm, S1, S2 Respiratory: Yes: Rhonchi Gastrointestinal: Yes: Normal Bowel Sounds, Soft Edema: Yes Labs: CBC, BMP 10/26/19 07:22 10/26/19 07:22 INR, PTT INR 1.05 (0.83-1.09) 10/21/19 17:25 Assessment/Plan PNEUMONIA LACTIC ACIDOSIS RESOLVED MULTIPLE ANTIBIOTIC ALLERGIES S/P TBI CONTINUE ZITHROMAX/ AZTREONAM
[2019-10-27] MEDS: OCULAR LUBRICANT OPHTHALMIC OINTMENT 7 GM TUBE OU SCH (21:09)
[2019-10-28] MEDS: AZTREONAM 2 GM in DEXTROSE 5%-WATER 100 ML IVPB SCH ×3 (01:39→17:27)
[2019-10-28] MEDS: LEVOTHYROXINE NA 100 MCG TABLET (FP) GT SCH (06:17)
[2019-10-28] MEDS: HEPARIN NA (PORCINE) 5,000 UNITS/ML 1ML VIAL SQ SCH ×3 (06:17→21:45)
[2019-10-28] MEDS: ALBUTEROL SO4 2.5/IPRATROPIUM 0.5 INH SOL 3 ML VIAL.NEB. NEB SCH ×4 (08:45→20:50)
[2019-10-28 08:53] LABS: BASO % 0.4 % (0-2.0); EOS % 1.1 % (0-4.5); HEMATOCRIT 29.9 % (32.4-45.2); LYMPH % 23.8 % (8-40); MCH 36.5 pg (25.7-33.7); MCHC 33.6 g/dl (32.0-36.0); MEAN CELL VOLUME 108.8 fl (80-96); MEAN PLT VOLUME 8.1 fl (7.5-11.1); MONO % 7.2 % (3.8-10.2); NEUT % 67.5 % (42.8-82.8); PLATELET COUNT 207 K/MM3 (134-434); RBC 2.75 M/mm3 (3.60-5.2); RDW 15.4 % (11.6-15.6); WHITE BLOOD COUNT 7.2 K/mm3 (4.0-10.0)
[2019-10-28 09:15] LABS: BLOOD UREA NITROGEN 12.9 mg/dL (7-18); CALCIUM 8.9 mg/dL (8.5-10.1); CREATININE 0.3 mg/dL (0.55-1.3); MAGNESIUM 1.9 mg/dL (1.8-2.4); PHOSPHOROUS 2.9 mg/dL (2.5-4.9); POTASSIUM 3.9 mmol/L (3.5-5.1)
[2019-10-28] MEDS ORDERED: PT OWN MED DRAWER 7, Y5N ONE ×2 (10:00→17:26)
--- NOTE | 2019-10-28 10:15 | PN ---
Physical Exam: SUBJECTIVE: Patient seen and examined; still SOB but immobility noted so check DD. Couldn't r/o infiltrates so checking CT chest without contrast and will compare to further describe. Discussed with nursing and held feeds; if no evidence of further aspiration will restart meds via GT. 10 sys ROS done and negative aside from HPI OBJECTIVE: Vital Signs Period Temp Pulse Resp BP Sys/Cramer Pulse Ox Last 24 Hr 97.4 F-98.1 F 68-88 18-18 93-99/47-63 93 NAD, tracks and responds to verbal stimuli, resting in bed NC AT EOMI PERRLA HR wnl, s1/2+ Trachea midline with inflamed stoma, no JVD Lungs with mild scattered rales but poor inspiratory effort, w/ sym exp. Improved compared to prior. NT ND +BS CN2-12 wnl, moves all 4 ext with seemingly normal strength but difficult neuro exam due to underlying condition Normal mood, not agitated, clinical condition limits judgment and insight Laboratory Results - last 24 hr 10/28/19 10/28/19 07:35 07:35 WBC 7.2 RBC 2.75 L Hgb 10.0 L Hct 29.9 L MCV 108.8 H MCH 36.5 H MCHC 33.6 RDW 15.4 Plt Count 207 MPV 8.1 Absolute Neuts (auto) 4.8 Neutrophils % 67.5 Lymphocytes % 23.8 D Monocytes % 7.2 Eosinophils % 1.1 D Basophils % 0.4 Nucleated RBC % 0 Sodium 143 Potassium 3.9 Chloride 111 H Carbon Dioxide 27 Anion Gap 5 L BUN 12.9 Creatinine 0.3 L Est GFR (CKD-EPI)AfAm 176.82 Est GFR (CKD-EPI)NonAf 152.57 Random Glucose 93 Calcium 8.9 Phosphorus 2.9 Magnesium 1.9 Active Medications Generic Name Dose Route Start Last Admin Trade Name Freq PRN Reason Stop Dose Admin Albuterol Sulfate 1 amp 10/26/19 02:00 10/26/19 02:00 Ventolin 0.083% Nebulizer Soln - NEB 1 amp Q4H PRN Administration SHORT OF BREATH/WHEEZING Albuterol/Ipratropium 1 amp 10/25/19 16:00 10/28/19 08:45 Duoneb - NEB 1 amp RQID [facility] Administration Artificial Tears 1 applic 10/21/19 22:00 10/27/19 21:09 Lacri-Lube Eye Ointment - OU 1 appful HS [facility] Administration Docusate Sodium 50 mg 10/22/19 10:00 10/27/19 11:36 Colace Liquid - PO Not Given DAILY [facility] Famotidine 20 mg 10/21/19 22:00 10/27/19 21:08 Pepcid NR 20 mg BID [facility] Administration Heparin Sodium (Porcine) 5,000 unit 10/21/19 22:00 10/28/19 06:17 Heparin - SQ 5,000 unit TID JACQUELIN Administration Aztreonam 2 gm/ Dextrose 100 mls @ 100 mls/hr 10/22/19 18:00 10/28/19 01:39 IVPB 100 mls/hr Q8H-IV [facility] Administration Protocol Azithromycin 500 mg in 250 mls @ 250 mls/hr 10/23/19 10:00 10/27/19 17:02 Zithromax 500mg Ivpb (Pre-Docked) IVPB 250 mls/hr DAILY [facility] Administration Ibuprofen 600 mg 10/21/19 20:28 10/27/19 15:10 Motrin - PO 600 mg Q6H PRN Administration FEVER Levetiracetam 1,500 mg 10/21/19 22:00 10/27/19 21:08 Keppra Oral Solution - PO 1,500 mg BID [facility] Administration Levothyroxine Sodium 100 mcg 10/22/19 07:00 10/28/19 06:17 Synthroid - GT 100 mcg DAILY@0700 [facility] Administration Magnesium Hydroxide 30 ml 10/22/19 10:00 10/27/19 11:36 Milk Of Magnesia - GT 30 ml DAILY [facility] Administration Multivitamins/Minerals 15 ml 10/22/19 10:00 10/27/19 11:36 Certavite-Antioxidant Liquid GT 15 ml DAILY [facility] Administration CT Chest pending CXR reviewed; atelectatis but poor inspiratory effort couldn't r/o PNA ASSESSMENT/PLAN: Presents with ongoing SOB but no worsening exam and actually improve O2 requirements. Updated MD at her facility. Followup CT as CXR was unclear regarding definitive findings. Holding feeds temporarily. If no further s/s aspiration can restart. 50 residual this AM but none this PM. Problems include: -SOB (DAMON pending; subjective but she is objectively improved.) -Sepsis (resolved) -Acute respiratory failure (On 3L, no steroids, BDs per pulm) -PNA -Hx TBI -Hx Seizures (c/w AEDs) -Hx Hypothyroidism -Hx functional quadraplegia -Mucus plugging (PRN suctioning) -Transaminitis (2/2 sepsis, followup US and trend CMP) -PNC allergy (abx per ID) *Stomatitis ruled out by imaging and ENT consult Disposition pending weaning from IV abx and O2. Full Code Visit type - Emergency Visit Emergency Visit: Yes ED Registration Date: 10/21/19 Care time: The patient presented to the Emergency Department on the above date and was hospitalized for further evaluation of their emergent condition. - New Patient This patient is new to me today: No - Critical Care Critical Care patient: No
[2019-10-28] MEDS: MULTIVIT-MINERALS ORAL LIQUID GT SCH (10:28)
[2019-10-28] MEDS: MAGNESIUM HYDROX 2400MG/30ML ORAL SUSPENSION 30 ML CUP GT SCH (10:28)
[2019-10-28] MEDS: levETIRAcetam 500 MG/5 ML ORAL SOLUTION (UNIT-DOSE CUPS) PO SCH ×2 (10:28→21:45)
[2019-10-28] MEDS: FAMOTIDINE 40 MG/5 ML ORAL SUSPENSION NR SCH ×2 (10:29→21:46)
[2019-10-28] MEDS: DOCUSATE NA 100 MG/10 ML UNIT-DOSE CUPS PO SCH (10:29)
--- NOTE | 2019-10-28 10:37 | PN ---
Progress Note (short form) - Note Progress Note: PULMONARY APPEARS IN NO DISTRESS VSS/AFEBRILE Gen: mildly tachypneic at rest Heart: RRR Lung: bilateral rhonchi less Abd: soft, nontender Ext: no edema INFLU A/B NEGATIVE A/P Acute Hypoxic Respiratory Failure resolving Pneumonia Sepsis Lactic Acidosis Elevated LFTs h/o Traumatic Brain Injury Seizure Disorder Hypothyroidism Functional Quadriplegia - continue antibiotics - chest PT - inhaled bronchodilators - O2 to keep SpO2 >90% - DVT prophylaxis Sunita GARLAND MD
[2019-10-28 11:11] LABS: MACROCYTOSIS 2+; PLATELET ESTIMATE NORMAL
[2019-10-28] MEDS: AZITHROMYCIN IVPB 500 MG/250 ML BAG IVPB SCH (11:44)
[2019-10-28] MEDS: IBUPROFEN 600 MG TABLET (FP) PO PRN (20:23)
[2019-10-28] MEDS: OCULAR LUBRICANT OPHTHALMIC OINTMENT 7 GM TUBE OU SCH (23:00)
[2019-10-29] MEDS ORDERED: PT OWN MED DRAWER 7, Y5N ONE ×8 (02:34→20:44)
[2019-10-29] MEDS: AZTREONAM 2 GM in DEXTROSE 5%-WATER 100 ML IVPB SCH ×3 (02:40→21:17)
[2019-10-29] MEDS: LEVOTHYROXINE NA 100 MCG TABLET (FP) GT SCH (07:02)
[2019-10-29] MEDS: HEPARIN NA (PORCINE) 5,000 UNITS/ML 1ML VIAL SQ SCH ×3 (07:02→21:19)
[2019-10-29] MEDS: ALBUTEROL SO4 2.5/IPRATROPIUM 0.5 INH SOL 3 ML VIAL.NEB. NEB SCH ×4 (07:40→20:00)
[2019-10-29] MEDS: AZITHROMYCIN IVPB 500 MG/250 ML BAG IVPB SCH (09:32)
[2019-10-29] MEDS: MULTIVIT-MINERALS ORAL LIQUID GT SCH (09:40)
[2019-10-29] MEDS: levETIRAcetam 500 MG/5 ML ORAL SOLUTION (UNIT-DOSE CUPS) PO SCH ×2 (09:41→21:19)
[2019-10-29] MEDS: FAMOTIDINE 40 MG/5 ML ORAL SUSPENSION NR SCH ×2 (09:43→21:18)
[2019-10-29] MEDS: DOCUSATE NA 100 MG/10 ML UNIT-DOSE CUPS PO SCH (09:44)
[2019-10-29] MEDS: MAGNESIUM HYDROX 2400MG/30ML ORAL SUSPENSION 30 ML CUP GT SCH (09:45)
[2019-10-29] MEDS: IBUPROFEN 600 MG TABLET (FP) PO PRN ×2 (09:47→18:07)
--- NOTE | 2019-10-29 11:01 | PN ---
Physical Exam: SUBJECTIVE: Patient seen and examined; discussed with pulmonary. Discussed with nursing and was able to wean off of O2 to RA this AM. Will keep sats >92% . No issues with residuals noted. Labs to be checked AM 10/30. Pulmonary input noted. Appreciate expert input in the ongoing care of this patient. Anticipating DC within 24-48 hours. 10 sys ROS done and negative aside from HPI OBJECTIVE: Vital Signs Period Temp Pulse Resp BP Sys/Cramer Pulse Ox Last 24 Hr 98.0 F-98.6 F 76-97 18-22 95-101/51-59 97 NAD, tracks and responds to verbal stimuli, resting in bed NC AT EOMI PERRLA HR wnl, s1/2+ Trachea midline with improved appearance to stoma, no JVD Lungs with mild scattered rales but poor inspiratory effort, w/ sym exp. Improved compared to prior. NT ND +BS CN2-12 wnl, moves all 4 ext with seemingly normal strength but difficult neuro exam due to underlying condition Normal mood, not agitated, clinical condition limits judgment and insight No skin breakdown or rashes noted Laboratory Results - last 24 hr 10/28/19 07:35 Platelet Estimate Normal Macrocytosis 2+ Active Medications Generic Name Dose Route Start Last Admin Trade Name Freq PRN Reason Stop Dose Admin Albuterol Sulfate 1 amp 10/26/19 02:00 10/26/19 02:00 Ventolin 0.083% Nebulizer Soln - NEB 1 amp Q4H PRN Administration SHORT OF BREATH/WHEEZING Albuterol/Ipratropium 1 amp 10/25/19 16:00 10/29/19 07:40 Duoneb - NEB 1 amp RQID [facility] Administration Artificial Tears 1 applic 10/21/19 22:00 10/28/19 23:00 Lacri-Lube Eye Ointment - OU 1 appful HS [facility] Administration Docusate Sodium 50 mg 10/22/19 10:00 10/29/19 09:44 Colace Liquid - PO Not Given DAILY [facility] Famotidine 20 mg 10/21/19 22:00 10/29/19 09:43 Pepcid NR 20 mg BID [facility] Administration Heparin Sodium (Porcine) 5,000 unit 10/21/19 22:00 10/29/19 07:02 Heparin - SQ 5,000 unit TID [facility] Administration Aztreonam 2 gm/ Dextrose 100 mls @ 100 mls/hr 10/22/19 18:00 10/29/19 02:40 IVPB 100 mls/hr Q8H-IV [facility] Administration Protocol Azithromycin 500 mg in 250 mls @ 250 mls/hr 10/23/19 10:00 10/29/19 09:32 Zithromax 500mg Ivpb (Pre-Docked) IVPB 250 mls/hr DAILY [facility] Administration Ibuprofen 600 mg 10/21/19 20:28 10/29/19 09:47 Motrin - PO 600 mg Q6H PRN Administration FEVER Levetiracetam 1,500 mg 10/21/19 22:00 10/29/19 09:41 Keppra Oral Solution - PO 1,500 mg BID [facility] Administration Levothyroxine Sodium 100 mcg 10/22/19 07:00 10/29/19 07:02 Synthroid - GT 100 mcg DAILY@0700 [facility] Administration Magnesium Hydroxide 30 ml 10/22/19 10:00 10/29/19 09:45 Milk Of Magnesia - GT Not Given DAILY [facility] Multivitamins/Minerals 15 ml 10/22/19 10:00 10/29/19 09:40 Certavite-Antioxidant Liquid GT 15 ml DAILY [facility] Administration ASSESSMENT/PLAN: Presents with ongoing SOB but no worsening exam and actually improve O2 requirements. Updated MD at her facility. Followup CT as CXR was unclear regarding definitive findings. Holding feeds temporarily. If no further s/s aspiration can restart. 50 residual this AM but none this PM. Problems include: -SOB (DAMON pending; subjective but she is objectively improved.) -Sepsis (resolved) -Acute respiratory failure (On 3L, no steroids, BDs per pulm) -PNA -Hx TBI -Hx Seizures (c/w AEDs) -Hx Hypothyroidism -Hx functional quadraplegia -Mucus plugging (PRN suctioning) -Transaminitis (2/2 sepsis, followup US and trend CMP) -PNC allergy (abx per ID) *Stomatitis ruled out by imaging and ENT consult Disposition pending weaning from IV abx and O2. Full Code Visit type - Emergency Visit Emergency Visit: Yes ED Registration Date: 10/21/19 Care time: The patient presented to the Emergency Department on the above date and was hospitalized for further evaluation of their emergent condition. - New Patient This patient is new to me today: No - Critical Care Critical Care patient: No
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
[2019-10-29] MEDS: OCULAR LUBRICANT OPHTHALMIC OINTMENT 7 GM TUBE OU SCH (21:59)
[2019-10-30] MEDS ORDERED: PT OWN MED DRAWER 7, Y5N ONE ×4 (01:53→17:09)
[2019-10-30] MEDS: AZTREONAM 2 GM in DEXTROSE 5%-WATER 100 ML IVPB SCH ×3 (01:56→18:05)
[2019-10-30] MEDS ORDERED: SODIUM CHLORIDE 500 ML IV STA (05:19)
[2019-10-30] MEDS: HEPARIN NA (PORCINE) 5,000 UNITS/ML 1ML VIAL SQ SCH ×3 (05:48→21:18)
[2019-10-30] MEDS: LEVOTHYROXINE NA 100 MCG TABLET (FP) GT SCH (06:25)
[2019-10-30] MEDS: ALBUTEROL SO4 2.5/IPRATROPIUM 0.5 INH SOL 3 ML VIAL.NEB. NEB SCH ×4 (07:30→21:10)
[2019-10-30 08:23] LABS: BASO % 0.4 % (0-2.0); EOS % 1.2 % (0-4.5); HEMATOCRIT 29.4 % (32.4-45.2); HEMOGLOBIN 9.9 GM/dL (10.7-15.3); LYMPH % 34.8 % (8-40); MCH 36.2 pg (25.7-33.7); MCHC 33.5 g/dl (32.0-36.0); MEAN CELL VOLUME 108.1 fl (80-96); MEAN PLT VOLUME 8.1 fl (7.5-11.1); MONO % 9.8 % (3.8-10.2); NEUT % 53.8 % (42.8-82.8); PLATELET COUNT 245 K/MM3 (134-434); RBC 2.72 M/mm3 (3.60-5.2); RDW 14.9 % (11.6-15.6); WHITE BLOOD COUNT 5.1 K/mm3 (4.0-10.0)
[2019-10-30 08:41] LABS: BLOOD UREA NITROGEN 13.4 mg/dL (7-18); CREATININE 0.3 mg/dL (0.55-1.3); POTASSIUM 3.9 mmol/L (3.5-5.1)
[2019-10-30 08:42] LABS: CALCIUM 8.6 mg/dL (8.5-10.1); MAGNESIUM 2.1 mg/dL (1.8-2.4); PHOSPHOROUS 2.7 mg/dL (2.5-4.9)
[2019-10-30] MEDS ORDERED: LACTATED RINGERS SOLUTION 1000 ML INFUS.BAG IV ONE (08:57)
[2019-10-30 10:27] LABS: ARTERIAL BLOOD GAS BASE EXCESS 2.6 meq/l (-2-2); ARTERIAL BLOOD GAS PCO2 46.5 mmHg (35-45); ARTERIAL BLOOD GAS PO2 130 mmHg (80-100); ARTERIAL BLOOD GAS pH 7.39 (7.35-7.45)
[2019-10-30 10:40] LABS: ALLENS TEST POSITIVE
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
--- NOTE | 2019-10-30 11:29 | PN ---
Progress Note, Physician History of Present Illness: EPISODE OF ALTERED MENTATION REPORTED PRESENTLY AWAKE. APHASIC LOW GRADE TEMP BREATHING NON LABORED HYPOTENSIVE - Current Medication List Current Medications: Active Medications Albuterol Sulfate (Ventolin 0.083% Nebulizer Soln -) 1 amp NEB Q4H PRN PRN Reason: SHORT OF BREATH/WHEEZING Last Admin: 10/26/19 02:00 Dose: 1 amp Albuterol/Ipratropium (Duoneb -) 1 amp NEB RQID [facility] Last Admin: 10/30/19 07:30 Dose: 1 amp Artificial Tears (Lacri-Lube Eye Ointment -) 1 applic OU HS [facility] Last Admin: 10/29/19 21:59 Dose: 1 appful Docusate Sodium (Colace Liquid -) 50 mg PO DAILY [facility] Last Admin: 10/29/19 09:44 Dose: Not Given Famotidine (Pepcid) 20 mg NR BID [facility] Last Admin: 10/29/19 21:18 Dose: 20 mg Heparin Sodium (Porcine) (Heparin -) 5,000 unit SQ TID [facility]AC[facility] Last Admin: 10/30/19 05:48 Dose: 5,000 unit Aztreonam 2 gm/ Dextrose 100 mls @ 100 mls/hr IVPB Q8H-IV JACQUELIN; Protocol Last Admin: 10/30/19 01:56 Dose: 100 mls/hr Azithromycin (Zithromax 500mg Ivpb (Pre-Docked)) 500 mg in 250 mls @ 250 mls/ hr IVPB DAILY [facility] Last Admin: 10/29/19 09:32 Dose: 250 mls/hr Ibuprofen (Motrin -) 600 mg PO Q6H PRN PRN Reason: FEVER Last Admin: 10/29/19 18:07 Dose: 600 mg Levetiracetam (Keppra Oral Solution -) 1,500 mg PO BID [facility] Last Admin: 10/29/19 21:19 Dose: 1,500 mg Levothyroxine Sodium (Synthroid -) 100 mcg GT DAILY@0700 [facility] Last Admin: 10/30/19 06:25 Dose: 100 mcg Magnesium Hydroxide (Milk Of Magnesia -) 30 ml GT DAILY [facility] Last Admin: 10/29/19 09:45 Dose: Not Given Multivitamins/Minerals (Certavite-Antioxidant Liquid) 15 ml GT DAILY [facility] Last Admin: 10/29/19 09:40 Dose: 15 ml - Objective Vital Signs: Vital Signs Temperature 97.7 F 10/30/19 08:47 Pulse Rate 94 H 10/30/19 08:47 Respiratory Rate 20 10/30/19 08:47 Blood Pressure 86/46 L 10/30/19 08:47 O2 Sat by Pulse Oximetry (%) 96 10/30/19 08:47 Constitutional: Yes: No Distress Eyes: Yes: Conjunctiva Clear Cardiovascular: Yes: Regular Rate and Rhythm, S1, S2 Respiratory: Yes: Rhonchi Gastrointestinal: Yes: Normal Bowel Sounds, Soft. No: Tenderness Edema: Yes Labs: CBC, BMP 10/30/19 07:25 10/30/19 07:25 INR, PTT INR 1.05 (0.83-1.09) 10/21/19 17:25 Assessment/Plan PNEUMONIA ? ASP CXR NOT WORSE LACTIC ACIDOSIS RESOLVED MULTIPLE ANTIBIOTIC ALLERGIES S/P TBI CONTINUE ZITHROMAX/ AZTREONAM ASP PRECAUTIONS
[2019-10-30] MEDS: MAGNESIUM HYDROX 2400MG/30ML ORAL SUSPENSION 30 ML CUP GT SCH (11:40)
[2019-10-30] MEDS: DOCUSATE NA 100 MG/10 ML UNIT-DOSE CUPS PO SCH (11:41)
[2019-10-30] MEDS: MULTIVIT-MINERALS ORAL LIQUID GT SCH (11:41)
[2019-10-30] MEDS: AZITHROMYCIN IVPB 500 MG/250 ML BAG IVPB SCH (11:42)
[2019-10-30] MEDS: levETIRAcetam 500 MG/5 ML ORAL SOLUTION (UNIT-DOSE CUPS) PO SCH ×2 (11:43→21:18)
[2019-10-30] MEDS: FAMOTIDINE 40 MG/5 ML ORAL SUSPENSION NR SCH ×2 (11:43→21:18)
--- NOTE | 2019-10-30 16:12 | PN ---
Progress Note (short form) - Note Progress Note: Hospitalist Medicine Resting in bed. Appeared uncomfortable this AM, gave 250 cc LR bolus, checked stat lactic (WNL), BP was 80/50. Has improved since. Still lethargic, not as interactive. Will wean 02 as sat well Vitals 10/30/19 14:18 Temperature 98.9 F Pulse Rate 91 H Respiratory 20 Rate Blood Pressure 112/46 L Physical Exam general: resting in bed. in NAD, on 2L NC HEENT: NCAT, PERRLA neck: supple. +stoma clean cardio: s1, s2 rrr. no r/m/g pulm: +b/l rhonchi abdomen: nontender, nondistended. +GT in place. no erythema LE: contracted, no edema. pulses intact Laboratory Tests 10/30/19 10/30/19 10/30/19 07:25 07:25 10:14 WBC 5.1 Hgb 9.9 L Hct 29.4 L Plt Count 245 ABG pH 7.39 ABG pCO2 at Pt Temp 46.5 H ABG pO2 at Pt Temp 130 H ABG HCO3 27.4 H ABG O2 Sat (Measured) 99.0 H ABG O2 Content 13.5 ABG Base Excess 2.6 H Sodium 143 Potassium 3.9 Chloride 111 H Carbon Dioxide 27 Anion Gap 5 L BUN 13.4 Creatinine 0.3 L Est GFR (CKD-EPI)AfAm 176.82 Est GFR (CKD-EPI)NonAf 152.57 Lactic Acid 10/30/19 10:30 WBC Hgb Hct Plt Count ABG pH ABG pCO2 at Pt Temp ABG pO2 at Pt Temp ABG HCO3 ABG O2 Sat (Measured) ABG O2 Content ABG Base Excess Sodium Potassium Chloride Carbon Dioxide Anion Gap BUN Creatinine Est GFR (CKD-EPI)AfAm Est GFR (CKD-EPI)NonAf Lactic Acid 0.6 Microbiology 10/25/19 13:00 Blood - Peripheral Venous Blood Culture - Final NO GROWTH AFTER 5 DAYS INCUBATION 10/25/19 12:55 Blood - Peripheral Venous Blood Culture - Final NO GROWTH AFTER 5 DAYS INCUBATION 10/23/19 09:15 Urine - Urine - Catheterized Legionella Antigen - Final 10/23/19 09:15 Urine - Urine - Catheterized Streptococcus pneumoniae Antigen (M - Final 10/21/19 17:28 Urine - Urine Clean Catch Urine Culture - Final NO GROWTH OBTAINED 10/21/19 11:46 Blood - Peripheral Venous Blood Culture - Final NO GROWTH AFTER 5 DAYS INCUBATION 10/21/19 11:46 Blood - Peripheral Venous Blood Culture - Final NO GROWTH AFTER 5 DAYS INCUBATION Imaging EKG: +sinus tach, qtc 471ms ECHO: EF 60%, mild MR, insufficient TR to calculate RSVP. no significant pulm HTN 10/21 CXR: weak inspiration with bibasilar atelectasis. 10/[address]: no discrete noncontrast CT abnormality involving the neck soft tissues. Tracheostomy site is seen. Encephalomalacia and ventriculomegaly also visualized. 10/[address]: left lower lobe infiltrate, probable small L upper lobe infiltrate, trace L pleural effusion. main pulmonary artery diameter appears mildly prominent measuring 3cm. additional evaluation for possible increased pulmonary arterial pressure is suggested. 10/24 CXR: weak inspiration, some increasing congestive changes and left base atelectatic changes 10/24 repeat CXR: weak inspiration with atelectasis and infiltrate at the left lung base, normal mediastinum, RUQ clips. UCHE and R lung are clear 10/25 CTAP: L basilar consolidation and atelectasis and small pleural effusions with additional atelectatic changes in the right lower lobe. ilateral ovarian cysts no acute pathology in abdomen. 10/26: CXR: mild atelectatic changes in the L lung base, cannot r/o infiltrates. 10/30: CXR: no significant change since 10/26/19. weak inspiration with some atelectasis at L base Assessment/plan 29 y/o F with history of TBI seizures and hypothyroidism who presents to the hospital with copious thick purulent secretions from previous tracheostomy stoma , tachycardia, acute hypoxemia respiratory failure, secondary to healthcare acquired pneumonia. #severe Sepsis secondary to Healthcare acquired PNA #Acute hypoxemic respiratory failure -have restarted zithro, azactam and d/c meropenem -c/w nebs PRN, suction PRN -chest PT BID -elevate HOB -UA, blood, ucx (-) thus far -motrin PRN for pain/fever -unable to give sputum cx -w/numerous abx allergies: PCN, vanco, etc. -ID on board: Dr. Douglas #R/o stomatitis -pt seen by Dr. Vegas; no acute recs -neck CT without evidence of abnormality #hx increased pulmonary arterial pressure (Chest CT) -ECHO: without evidence of significant pulm HTN. # hx seizures -c/w keppra GT #hypothyroidism -c/w synthroid #Functional quadriplegia -c/w home meds: mg ox, MTV minerals, ocular lubricant -c/w suction PRN #Constipation -c/w colace #F/E/N off IVF; lactic has improved; will avoid as congested continue to follow lytes TF vital per dietary #PPX DVT: hep 5k Sq TID GI: pepcid #Dispo cont'd monitoring on med/surg will need off 02 24hrs prior to d/c ; weaning 02 off . maintain sat > 92% still on IV abx, will need switch to PO prior to d/c from [facility] <Radha Kerr - Last Filed: 10/30/19 16:17> - Note Progress Note: Seen and examined; please see resident note for further historical information. I personally verified all thakkar historical information and exam findings. Personally interpreted all imaging and diagnostics and reviewed appropriate consults. I reviewed all labs and vital signs as per resident note and EMR as documented. I agree with the above assessment and plan unless supplemented by myself in the following. No further SOB. She was weaned from O2 wednesday afternoon and I see she was placed on overnight; no cole desats, etc. so this is puzzling. She is stable with no worsening symptoms. Secretions are controlled. Family updated. Communication remains limited. 10 sys ROS done and negative aside from hpi nad awake and alert communicating with yes and no chart nc at eomi stoma without inflammation, trachea midline, no jvd lungs with moderately poor effort but no cole rales and improved in general, w / sym exp NT ND +BS CN2-12 at baseline with intact sensorium moving all [address] Not agitated, limited psychiatric assessment given underlying conditiion A/P: Problems include: -Sepsis (resolved) -Acute respiratory failure (On 3L, no steroids, BDs per pulm) -PNA -Hx TBI -Hx Seizures (c/w AEDs) -Hx Hypothyroidism -Hx functional quadraplegia -Mucus plugging (PRN suctioning) -Transaminitis (2/2 sepsis, followup US and trend CMP) -PNC allergy (abx per ID) *Stomatitis ruled out by imaging and ENT consult <Perfecto Clark - Last Filed: 11/01/19 08:02>
[2019-10-30] MEDS: OCULAR LUBRICANT OPHTHALMIC OINTMENT 7 GM TUBE OU SCH (21:18)
[2019-10-31] MEDS: AZTREONAM 2 GM in DEXTROSE 5%-WATER 100 ML IVPB SCH ×3 (01:48→17:37)
[2019-10-31] MEDS: LEVOTHYROXINE NA 100 MCG TABLET (FP) GT SCH (06:05)
[2019-10-31] MEDS: HEPARIN NA (PORCINE) 5,000 UNITS/ML 1ML VIAL SQ SCH ×3 (06:05→22:55)
[2019-10-31] MEDS: ALBUTEROL SO4 2.5/IPRATROPIUM 0.5 INH SOL 3 ML VIAL.NEB. NEB SCH ×4 (07:57→21:00)
[2019-10-31 08:26] LABS: BASO % 0.4 % (0-2.0); EOS % 1.3 % (0-4.5); HEMATOCRIT 28.7 % (32.4-45.2); HEMOGLOBIN 9.8 GM/dL (10.7-15.3); LYMPH % 28.6 % (8-40); MCH 36.9 pg (25.7-33.7); MCHC 34.2 g/dl (32.0-36.0); MEAN CELL VOLUME 107.9 fl (80-96); MONO % 7.3 % (3.8-10.2); NEUT % 62.4 % (42.8-82.8); PLATELET COUNT 241 K/MM3 (134-434); RBC 2.66 M/mm3 (3.60-5.2); RDW 14.6 % (11.6-15.6); WHITE BLOOD COUNT 6.2 K/mm3 (4.0-10.0)
[2019-10-31 08:50] LABS: BLOOD UREA NITROGEN 14.4 mg/dL (7-18); CALCIUM 9.1 mg/dL (8.5-10.1); CREATININE 0.3 mg/dL (0.55-1.3); PHOSPHOROUS 2.7 mg/dL (2.5-4.9); POTASSIUM 3.8 mmol/L (3.5-5.1)
[2019-10-31] MEDS ORDERED: PT OWN MED DRAWER 7, Y5N ONE ×2 (10:44→17:00)
[2019-10-31] MEDS: MULTIVIT-MINERALS ORAL LIQUID GT SCH (10:46)
[2019-10-31] MEDS: FAMOTIDINE 40 MG/5 ML ORAL SUSPENSION NR SCH ×2 (10:46→22:54)
[2019-10-31] MEDS: DOCUSATE NA 100 MG/10 ML UNIT-DOSE CUPS PO SCH (10:46)
[2019-10-31] MEDS: levETIRAcetam 500 MG/5 ML ORAL SOLUTION (UNIT-DOSE CUPS) PO SCH ×2 (10:47→22:54)
[2019-10-31] MEDS: MAGNESIUM HYDROX 2400MG/30ML ORAL SUSPENSION 30 ML CUP GT SCH (10:47)
[2019-10-31] MEDS: AZITHROMYCIN IVPB 500 MG/250 ML BAG IVPB SCH (10:47)
--- NOTE | 2019-10-31 11:04 | PN ---
Progress Note (short form) - Note Progress Note: PULMONARY Awake, alert. No fevers recorded. Still some secretions from stoma. Vital Signs Period Temp Pulse Resp BP Sys/Cramer Pulse Ox Last 24 Hr 98.3 F-99.3 F 65-91 20-22 92-112/46-59 96-96 Gen: NAD at rest Heart: RRR Lung: scattered rhonchi Abd: soft, nontender Ext: no edema CBC, BMP 10/31/19 07:37 10/31/19 07:37 Active Medications Albuterol Sulfate (Ventolin 0.083% Nebulizer Soln -) 1 amp NEB Q4H PRN PRN Reason: SHORT OF BREATH/WHEEZING Last Admin: 10/26/19 02:00 Dose: 1 amp Albuterol/Ipratropium (Duoneb -) 1 amp NEB RQID [facility] Last Admin: 10/31/19 07:57 Dose: 1 amp Artificial Tears (Lacri-Lube Eye Ointment -) 1 applic OU HS [facility] Last Admin: 10/30/19 21:18 Dose: 1 appful Docusate Sodium (Colace Liquid -) 50 mg PO DAILY [facility] Last Admin: 10/31/19 10:46 Dose: 50 mg Famotidine (Pepcid) 20 mg NR BID [facility] Last Admin: 10/31/19 10:46 Dose: 20 mg Heparin Sodium (Porcine) (Heparin -) 5,000 unit SQ TID [facility] Last Admin: 10/31/19 06:05 Dose: 5,000 unit Aztreonam 2 gm/ Dextrose 100 mls @ 100 mls/hr IVPB Q8H-IV JACQUELIN; Protocol Last Admin: 10/31/19 01:48 Dose: 100 mls/hr Azithromycin (Zithromax 500mg Ivpb (Pre-Docked)) 500 mg in 250 mls @ 250 mls/ hr IVPB DAILY [facility] Last Admin: 10/31/19 10:47 Dose: 250 mls/hr Ibuprofen (Motrin -) 600 mg PO Q6H PRN PRN Reason: FEVER Last Admin: 10/29/19 18:07 Dose: 600 mg Levetiracetam (Keppra Oral Solution -) 1,500 mg PO BID [facility] Last Admin: 10/31/19 10:47 Dose: 1,500 mg Levothyroxine Sodium (Synthroid -) 100 mcg GT DAILY@0700 [facility] Last Admin: 10/31/19 06:05 Dose: 100 mcg Magnesium Hydroxide (Milk Of Magnesia -) 30 ml GT DAILY [facility] Last Admin: 10/31/19 10:47 Dose: 30 ml Multivitamins/Minerals (Certavite-Antioxidant Liquid) 15 ml GT DAILY [facility] Last Admin: 10/31/19 10:46 Dose: 15 ml A/P Acute Hypoxic Respiratory Failure improving Pneumonia Sepsis Lactic Acidosis Elevated LFTs h/o Traumatic Brain Injury Seizure Disorder Hypothyroidism Functional Quadriplegia - complete antibiotics - chest PT - inhaled bronchodilators - O2 to keep SpO2 >90% - aspiration precautions - DVT prophylaxis
--- NOTE | 2019-10-31 11:41 | PN ---
Progress Note (short form) - Note Progress Note: Hospitalist Medicine Used yes/ no sign to communicate with patient. Indicates that breathing has improved. Weaning off 02 Vitals 10/31/19 10/31/19 06:02 08:04 Temperature 98.3 F Respiratory 22 H Rate Blood Pressure 96/58 L O2 Sat by Pulse 96 Oximetry (%) Oxygen Flow 3 Rate Physical Exam general: resting in bed. in NAD, weaning off NC HEENT: NCAT, PERRLA neck: supple. +stoma with scant serous secretion cardio: s1, s2 rrr. no r/m/g pulm: +b/l rhonchi, improved. no accessory m usage abdomen: nontender, nondistended. +GT in place. no erythema LE: contracted, no edema. pulses intact Laboratory Tests 10/31/19 10/31/19 07:37 07:37 WBC 6.2 Hgb 9.8 L Hct 28.7 L Plt Count 241 Sodium 144 Potassium 3.8 Chloride 111 H Carbon Dioxide 28 BUN 14.4 Creatinine 0.3 L Random Glucose 96 Microbiology 10/29/19 23:00 Sputum - Oropharynx Suctioned Sputum Gram Stain - Final 10/25/19 13:00 Blood - Peripheral Venous Blood Culture - Final NO GROWTH AFTER 5 DAYS INCUBATION 10/25/19 12:55 Blood - Peripheral Venous Blood Culture - Final NO GROWTH AFTER 5 DAYS INCUBATION 10/23/19 09:15 Urine - Urine - Catheterized Legionella Antigen - Final 10/23/19 09:15 Urine - Urine - Catheterized Streptococcus pneumoniae Antigen (M - Final 10/21/19 17:28 Urine - Urine Clean Catch Urine Culture - Final NO GROWTH OBTAINED 10/21/19 11:46 Blood - Peripheral Venous Blood Culture - Final NO GROWTH AFTER 5 DAYS INCUBATION 10/21/19 11:46 Blood - Peripheral Venous Blood Culture - Final NO GROWTH AFTER 5 DAYS INCUBATION 10/29/19 23:00 Sputum - Oropharynx Suctioned Sputum Sputum Culture - Preliminary Non Lactose Fermenting Gnb Pending Organism Imaging EKG: +sinus tach, qtc 471ms ECHO: EF 60%, mild MR, insufficient TR to calculate RSVP. no significant pulm HTN 10/21 CXR: weak inspiration with bibasilar atelectasis. 10/[address]: no discrete noncontrast CT abnormality involving the neck soft tissues. Tracheostomy site is seen. Encephalomalacia and ventriculomegaly also visualized. 10/[address]: left lower lobe infiltrate, probable small L upper lobe infiltrate, trace L pleural effusion. main pulmonary artery diameter appears mildly prominent measuring 3cm. additional evaluation for possible increased pulmonary arterial pressure is suggested. 10/24 CXR: weak inspiration, some increasing congestive changes and left base atelectatic changes 10/24 repeat CXR: weak inspiration with atelectasis and infiltrate at the left lung base, normal mediastinum, RUQ clips. UCHE and R lung are clear 10/25 CTAP: L basilar consolidation and atelectasis and small pleural effusions with additional atelectatic changes in the right lower lobe. ilateral ovarian cysts no acute pathology in abdomen. 10/26: CXR: mild atelectatic changes in the L lung base, cannot r/o infiltrates. 10/30: CXR: no significant change since 10/26/19. weak inspiration with some atelectasis at L base Assessment/plan 29 y/o F with history of TBI seizures and hypothyroidism who presents to the hospital with copious thick purulent secretions from previous tracheostomy stoma , tachycardia, acute hypoxemia respiratory failure, secondary to healthcare acquired pneumonia. #severe Sepsis secondary to Healthcare acquired PNA #Acute hypoxemic respiratory failure -have restarted zithro, azactam and d/c meropenem will change as per ID recs -sputum (suctioned): non lactose fermenting gnb -c/w nebs PRN, suction PRN -chest PT BID -elevate HOB -UA, blood, ucx (-) thus far -motrin PRN for pain/fever -unable to give sputum cx -w/numerous abx allergies: PCN, vanco, etc. -ID on board: Dr. Douglas #R/o stomatitis -pt seen by Dr. Vegas; no acute recs -neck CT without evidence of abnormality #hx increased pulmonary arterial pressure (Chest CT) -ECHO: without evidence of significant pulm HTN. # hx seizures -c/w keppra GT #hypothyroidism -c/w synthroid #Functional quadriplegia -c/w home meds: mg ox, MTV minerals, ocular lubricant -c/w suction PRN #Constipation -c/w colace #F/E/N off IVF; lactic has improved; will avoid as congested continue to follow lytes TF vital per dietary #PPX DVT: hep 5k Sq TID GI: pepcid #Dispo cont'd monitoring on med/surg pending pre and post still on IV abx, will need switch to PO prior to d/c per ID from Preet <Yolette Kerrna - Last Filed: 10/31/19 15:00> - Note Progress Note: Seen and examined; please see resident note for further historical information. I personally verified all thakkar historical information and exam findings. Personally interpreted all imaging and diagnostics and reviewed appropriate consults. I reviewed all labs and vital signs as per resident note and EMR as documented. I agree with the above assessment and plan unless supplemented by myself in the following. She was again placed on O2; I specifically wrote an order advising against doing this over the weekend. Shee did not desat. Document formal pre and post and DC planning. 10 sys ROS done and negative aside from hpi nad awake and alert communicating with yes and no chart nc at eomi stoma without inflammation, trachea midline, no jvd lungs continue to be improved in general, w/ sym exp NT ND +BS CN2-12 at baseline with intact sensorium moving all [address] Not agitated, limited psychiatric assessment given underlying conditiion A/P: Problems include: -Sepsis (resolved) -Acute respiratory failure (On 3L, no steroids, BDs per pulm) -PNA -Hx TBI -Hx Seizures (c/w AEDs) -Hx Hypothyroidism -Hx functional quadraplegia -Mucus plugging (PRN suctioning) -Transaminitis (2/2 sepsis, followup US and trend CMP) -PNC allergy (abx per ID) *Stomatitis ruled out by imaging and ENT consult Likely DC 24-36 hours. <Perfecto Clark - Last Filed: 11/01/19 08:03>
[2019-10-31 12:03] LABS: MACROCYTOSIS 1+; PLATELET ESTIMATE NORMAL
[2019-10-31] MEDS: IBUPROFEN 600 MG TABLET (FP) PO PRN (18:47)
[2019-10-31] MEDS: OCULAR LUBRICANT OPHTHALMIC OINTMENT 7 GM TUBE OU SCH (22:54)
[2019-11-01] MEDS ORDERED: PT OWN MED DRAWER 7, Y5N ONE ×2 (02:24→08:49)
[2019-11-01] MEDS: AZTREONAM 2 GM in DEXTROSE 5%-WATER 100 ML IVPB SCH ×2 (02:29→09:57)
[2019-11-01] MEDS: HEPARIN NA (PORCINE) 5,000 UNITS/ML 1ML VIAL SQ SCH ×2 (05:36→13:32)
[2019-11-01] MEDS: IBUPROFEN 600 MG TABLET (FP) PO PRN (05:36)
[2019-11-01] MEDS: LEVOTHYROXINE NA 100 MCG TABLET (FP) GT SCH (06:07)
[2019-11-01] MEDS: ALBUTEROL SO4 2.5/IPRATROPIUM 0.5 INH SOL 3 ML VIAL.NEB. NEB SCH ×3 (07:40→15:55)
[2019-11-01] MEDS ORDERED: LACTATED RINGERS SOLUTION 1000 ML INFUS.BAG IV ONE (09:25)
[2019-11-01] MEDS: MAGNESIUM HYDROX 2400MG/30ML ORAL SUSPENSION 30 ML CUP GT SCH (09:56)
[2019-11-01] MEDS: FAMOTIDINE 40 MG/5 ML ORAL SUSPENSION NR SCH (09:57)
[2019-11-01] MEDS: MULTIVIT-MINERALS ORAL LIQUID GT SCH (09:58)
[2019-11-01] MEDS: levETIRAcetam 500 MG/5 ML ORAL SOLUTION (UNIT-DOSE CUPS) PO SCH (09:58)
[2019-11-01] MEDS: DOCUSATE NA 100 MG/10 ML UNIT-DOSE CUPS PO SCH (10:00)
--- NOTE | 2019-11-01 11:12 | PN ---
Progress Note, Physician History of Present Illness: AWAKE, ALERT APHASIC LOW GRADE TEMP BREATHING NON LABORED RESISTANT CITROBACTER ISOLATED IN SPUTUM CXR CLEAR - Current Medication List Current Medications: Active Medications Albuterol Sulfate (Ventolin 0.083% Nebulizer Soln -) 1 amp NEB Q4H PRN PRN Reason: SHORT OF BREATH/WHEEZING Last Admin: 10/26/19 02:00 Dose: 1 amp Albuterol/Ipratropium (Duoneb -) 1 amp NEB RQID [facility] Last Admin: 11/01/19 07:40 Dose: 1 amp Artificial Tears (Lacri-Lube Eye Ointment -) 1 applic OU HS [facility] Last Admin: 10/31/19 22:54 Dose: 1 appful Docusate Sodium (Colace Liquid -) 50 mg PO DAILY [facility] Last Admin: 11/01/19 10:00 Dose: 50 mg Famotidine (Pepcid) 20 mg NR BID [facility] Last Admin: 11/01/19 09:57 Dose: 20 mg Heparin Sodium (Porcine) (Heparin -) 5,000 unit SQ TID [facility] Last Admin: 11/01/19 05:36 Dose: 5,000 unit Aztreonam 2 gm/ Dextrose 100 mls @ 100 mls/hr IVPB Q8H-IV [facility]ACQUEL[facility]; Protocol Last Admin: 11/01/19 09:57 Dose: 100 mls/hr Azithromycin (Zithromax 500mg Ivpb (Pre-Docked)) 500 mg in 250 mls @ 250 mls/ hr IVPB DAILY [facility] Last Admin: 10/31/19 10:47 Dose: 250 mls/hr Ibuprofen (Motrin -) 600 mg PO Q6H PRN PRN Reason: FEVER Last Admin: 11/01/19 05:36 Dose: 600 mg Levetiracetam (Keppra Oral Solution -) 1,500 mg PO BID [facility] Last Admin: 11/01/19 09:58 Dose: 1,500 mg Levothyroxine Sodium (Synthroid -) 100 mcg GT DAILY@0700 [facility] Last Admin: 11/01/19 06:07 Dose: 100 mcg Magnesium Hydroxide (Milk Of Magnesia -) 30 ml GT DAILY [facility] Last Admin: 11/01/19 09:56 Dose: 30 ml Multivitamins/Minerals (Certavite-Antioxidant Liquid) 15 ml GT DAILY [facility] Last Admin: 11/01/19 09:58 Dose: 15 ml - Objective Vital Signs: Vital Signs Temperature 99.0 F 11/01/19 10:00 Pulse Rate 96 H 11/01/19 10:00 Respiratory Rate 18 11/01/19 10:00 Blood Pressure 88/56 L 11/01/19 10:00 O2 Sat by Pulse Oximetry (%) 94 L 11/01/19 00:47 Constitutional: Yes: No Distress Eyes: Yes: Conjunctiva Clear Cardiovascular: Yes: Regular Rate and Rhythm, S1, S2 Respiratory: Yes: CTA Bilaterally Gastrointestinal: Yes: Normal Bowel Sounds, Soft. No: Tenderness Edema: No Labs: CBC, BMP 10/31/19 07:37 10/31/19 07:37 INR, PTT INR 1.05 (0.83-1.09) 10/21/19 17:25 Assessment/Plan PNEUMONIA ? ASP RESISTANT CITROBACTER IN SPUTUM LIKELY COLONIZER/ CONTAMINANT LACTIC ACIDOSIS RESOLVED MULTIPLE ANTIBIOTIC ALLERGIES S/P TBI D/C ANTIBIOTICS, OBSERVE OFF NO TREATMENT FOR CITROBACTER
[2019-11-01] MEDS: AZITHROMYCIN IVPB 500 MG/250 ML BAG IVPB SCH (11:29)
[2019-11-01 13:50] VITALS: BP 94/54; PULSE 77; TEMP 98.6
--- NOTE | 2019-11-01 14:45 | PN ---
Progress Note, Physician History of Present Illness: PULMONARY ALERT,NON-VERBAL,-RESP DISTRESS - Current Medication List Current Medications: Active Medications Albuterol Sulfate (Ventolin 0.083% Nebulizer Soln -) 1 amp NEB Q4H PRN PRN Reason: SHORT OF BREATH/WHEEZING Last Admin: 10/26/19 02:00 Dose: 1 amp Albuterol/Ipratropium (Duoneb -) 1 amp NEB RQID [facility] Last Admin: 11/01/19 11:50 Dose: 1 amp Artificial Tears (Lacri-Lube Eye Ointment -) 1 applic OU HS [facility] Last Admin: 10/31/19 22:54 Dose: 1 appful Docusate Sodium (Colace Liquid -) 50 mg PO DAILY [facility] Last Admin: 11/01/19 10:00 Dose: 50 mg Famotidine (Pepcid) 20 mg NR BID [facility] Last Admin: 11/01/19 09:57 Dose: 20 mg Heparin Sodium (Porcine) (Heparin -) 5,000 unit SQ TID [facility] Last Admin: 11/01/19 13:32 Dose: 5,000 unit Aztreonam 2 gm/ Dextrose 100 mls @ 100 mls/hr IVPB Q8H-IV [facility]; Protocol Last Admin: 11/01/19 09:57 Dose: 100 mls/hr Azithromycin (Zithromax 500mg Ivpb (Pre-Docked)) 500 mg in 250 mls @ 250 mls/ hr IVPB DAILY [facility] Last Admin: 11/01/19 11:29 Dose: 250 mls/hr Ibuprofen (Motrin -) 600 mg PO Q6H PRN PRN Reason: FEVER Last Admin: 11/01/19 05:36 Dose: 600 mg Levetiracetam (Keppra Oral Solution -) 1,500 mg PO BID [facility] Last Admin: 11/01/19 09:58 Dose: 1,500 mg Levothyroxine Sodium (Synthroid -) 100 mcg GT DAILY@0700 [facility] Last Admin: 11/01/19 06:07 Dose: 100 mcg Magnesium Hydroxide (Milk Of Magnesia -) 30 ml GT DAILY [facility] Last Admin: 11/01/19 09:56 Dose: 30 ml Multivitamins/Minerals (Certavite-Antioxidant Liquid) 15 ml GT DAILY [facility] Last Admin: 11/01/19 09:58 Dose: 15 ml - Objective Vital Signs: Vital Signs Temperature 98.6 F 11/01/19 13:47 Pulse Rate 77 11/01/19 13:47 Respiratory Rate 20 11/01/19 13:47 Blood Pressure 94/54 L 11/01/19 13:47 O2 Sat by Pulse Oximetry (%) 94 L 11/01/19 00:47 Constitutional: Yes: Well Nourished, Calm Eyes: Yes: WNL HENT: Yes: WNL Neck: Yes: WNL Cardiovascular: Yes: Regular Rate and Rhythm, S1, S2 Respiratory: Yes: Rhonchi (SCATTERED VIRGIL RHONCHI) Gastrointestinal: Yes: Normal Bowel Sounds, Soft Extremities: Yes: WNL Edema: No Labs: CBC, BMP 10/31/19 07:37 10/31/19 07:37 INR, PTT INR 1.05 (0.83-1.09) 10/21/19 17:25 Problem List - Problems (1) Acute respiratory distress Code(s): R06.03 - ACUTE RESPIRATORY DISTRESS (2) Atelectasis of both lungs Code(s): J98.11 - ATELECTASIS (3) Pneumonia Code(s): J18.9 - PNEUMONIA, UNSPECIFIED ORGANISM (4) Cough Code(s): R05 - COUGH (5) Mucus plugging of bronchi Code(s): J98.09 - OTHER DISEASES OF BRONCHUS, NOT ELSEWHERE CLASSIFIED Assessment/Plan A/P Acute Hypoxic Respiratory Failure improving Pneumonia Sepsis Lactic Acidosis Elevated LFTs h/o Traumatic Brain Injury Seizure Disorder Hypothyroidism Functional Quadriplegia - complete antibiotics - chest PT - inhaled bronchodilators - O2 to keep SpO2 >90% - aspiration precautions - DVT prophylaxis DR ETIENNE
--- NOTE | 2019-11-01 16:49 | DS ---
Physical Exam: SUBJECTIVE: Patient seen and examined at bedside. At baseline. Case d/w Dr. Tadeo; accepted for return back to facility. OBJECTIVE: Vital Signs Period Temp Pulse Resp BP Sys/Cramer Pulse Ox Last 24 Hr 98 F-99.0 F 76-96 18-20 88-98/54-56 92-94 10/27/19 10/27/19 10/27/19 06:14 18:00 22:00 Temperature 97.5 F L 97.4 F L 97.9 F 10/30/19 11/01/19 11/01/19 00:09 06:02 10:00 Temperature 99.7 F H 98.9 F 99.0 F Physical Exam general: resting in bed. in NAD, weaning off NC HEENT: NCAT, PERRLA neck: supple. +stoma with scant serous secretion cardio: s1, s2 rrr. no r/m/g pulm: +b/l rhonchi, improved. no accessory m usage abdomen: nontender, nondistended. +GT in place. no erythema LE: contracted, no edema. pulses intact LABS 10/24/19 10/25/19 10/26/19 07:35 06:52 07:22 WBC 6.5 9.3 11.5 H Hgb 9.8 L 9.8 L 9.7 L Hct 28.9 L 28.7 L 28.5 L Plt Count 160 174 185 10/28/19 10/30/19 10/31/19 07:35 07:25 07:37 WBC 7.2 5.1 6.2 Hgb 10.0 L 9.9 L 9.8 L Hct 29.9 L 29.4 L 28.7 L Plt Count 207 245 241 10/21/19 17:25 PT with INR 12.40 INR 1.05 PTT (Actin FS) 22.2 L 10/30/19 10:14 ABG pH 7.39 ABG pCO2 at Pt Temp 46.5 H ABG pO2 at Pt Temp 130 H ABG HCO3 27.4 H ABG O2 Sat (Measured) 99.0 H ABG Base Excess 2.6 H 10/26/19 10/28/19 10/30/19 07:22 07:35 07:25 Sodium 143 143 143 Potassium 3.7 3.9 3.9 BUN 10.0 12.9 13.4 Creatinine 0.4 L 0.3 L 0.3 L Random Glucose 91 93 100 10/31/19 07:37 Sodium 144 Potassium 3.8 BUN 14.4 Creatinine 0.3 L Random Glucose 96 10/21/19 10/26/19 11:46 17:50 Influenza A (Rapid) Negative Negative Influenza B (Rapid) Negative Negative Microbiology 10/29/19 23:00 Sputum - Oropharynx Suctioned Sputum Gram Stain - Final 10/25/19 13:00 Blood - Peripheral Venous Blood Culture - Final NO GROWTH AFTER 5 DAYS INCUBATION 10/25/19 12:55 Blood - Peripheral Venous Blood Culture - Final NO GROWTH AFTER 5 DAYS INCUBATION 10/23/19 09:15 Urine - Urine - Catheterized Legionella Antigen - Final 10/23/19 09:15 Urine - Urine - Catheterized Streptococcus pneumoniae Antigen (M - Final 10/21/19 17:28 Urine - Urine Clean Catch Urine Culture - Final NO GROWTH OBTAINED 10/21/19 11:46 Blood - Peripheral Venous Blood Culture - Final NO GROWTH AFTER 5 DAYS INCUBATION 10/21/19 11:46 Blood - Peripheral Venous Blood Culture - Final NO GROWTH AFTER 5 DAYS INCUBATION 10/29/19 23:00 Sputum - Oropharynx Suctioned Sputum Sputum Culture - Preliminary Citrobacter Koseri Presumptive Mrsa (Pbp2a Pos) Imaging EKG: +sinus tach, qtc 471ms ECHO: EF 60%, mild MR, insufficient TR to calculate RSVP. no significant pulm HTN 10/21 CXR: weak inspiration with bibasilar atelectasis. 10/[address]: no discrete noncontrast CT abnormality involving the neck soft tissues. Tracheostomy site is seen. Encephalomalacia and ventriculomegaly also visualized. 10/[address]: left lower lobe infiltrate, probable small L upper lobe infiltrate, trace L pleural effusion. main pulmonary artery diameter appears mildly prominent measuring 3cm. additional evaluation for possible increased pulmonary arterial pressure is suggested. 10/24 CXR: weak inspiration, some increasing congestive changes and left base atelectatic changes 10/24 repeat CXR: weak inspiration with atelectasis and infiltrate at the left lung base, normal mediastinum, RUQ clips. UCHE and R lung are clear 10/25 CTAP: L basilar consolidation and atelectasis and small pleural effusions with additional atelectatic changes in the right lower lobe. ilateral ovarian cysts no acute pathology in abdomen. 10/26: CXR: mild atelectatic changes in the L lung base, cannot r/o infiltrates. 10/30: CXR: no significant change since 10/26/19. weak inspiration with some atelectasis at L base HOSPITAL COURSE: Date of Admission:10/21/19 Date of Discharge: 11/01/19 Admission diagnosis: HCAP/ health care associated PNA 29 y/o F with history of TBI seizures and hypothyroidism who presents to the hospital with copious thick purulent secretions from previous tracheostomy stoma , tachycardia, acute hypoxemia respiratory failure, secondary to healthcare acquired pneumonia. #severe Sepsis secondary to Healthcare acquired PNA #Acute hypoxemic respiratory failure -was managed on zithromax and azactam during stay -completed course; d/c back to facility, without abx -c/w nebs PRN, suction PRN -chest PT BID -elevate HOB -UA, blood, ucx (-) thus far -motrin PRN for pain/fever -w/numerous abx allergies: PCN, vanco, etc. #R/o stomatitis -pt seen by Dr. Vegas (ENT); no acute recs -neck CT without evidence of abnormality #hx increased pulmonary arterial pressure (Chest CT) -ECHO: without evidence of significant pulm HTN. # hx seizures -c/w keppra GT #hypothyroidism -c/w synthroid #Functional quadriplegia -c/w home meds: mg ox, MTV minerals, ocular lubricant -c/w suction PRN #Constipation -c/w colace Minutes to complete discharge: 53 Discharge Summary Problems reviewed: Yes Reason For Visit: INCREASED LACTIC ACID LEVEL/PNEUMONIA Current Active Problems Acute respiratory distress (Acute) Atelectasis of both lungs (Acute) Elevated lactic acid level (Acute) Pneumonia (Acute) Condition: Fair - Instructions Diet, Activity, Other Instructions: You were in the hospital because you had pneumonia. You were managed in the hospital with IV antibiotics. You improved and are being sent back to your facility. Medications You are not being discharged on any new medications. You completed your IV antibiotic course while you were in the hospital. Care You will need increased suctioning, and chest physiotherapy twice a day to prevent any mucus plugging from recurring. Follow up Please follow up with the following physicians upon your discharge: -Dr. Tadeo, your primary care provider at the facility -over the next 3-5 days Referrals: Mauro Tadeo Jr [Primary Care Provider] - 11/03/19 Disposition: HOME - Home Medications Comprehensive Discharge Medication List: Ambulatory Orders Albuterol 0.083% Nebulizer Makeda [Ventolin 0.083% Nebulizer Soln -] 1 neb NEB Q6H 09/05/15 Calcium 500Mg/Vit-D 200 Units [Os-Anil 500+D -] 1 combo GT ONCE 09/05/15 Carbamide Peroxide [Carbamoxide] 4 drop OT DAILY 09/05/15 Cetirizine HCl 10 mg GT HS 09/05/15 Cholecalciferol (Vitamin D3) [Vitamin D3] 1,000 unit GT BID 09/05/15 Cyclosporine [Restasis] 1 each OP DAILY 09/05/15 Dextran 70/Hypromellose [Artificial Tears] 2 each OU QID 09/05/15 Docusate Liquid [Colace Liquid -] 50 mg PO DAILY 09/05/15 Levothyroxine [Synthroid -] 100 mcg GT DAILY 09/05/15 Magnesium Hydroxide [Milk of Magnesia] 30 ml GT DAILY 09/05/15 Multivitamin [Poly-Vitamin] 1 each GT DAILY 09/05/15 Ocular Lubricant Ophth Oint [Lacri-Lube S.o.p -] 1 applic OU HS 09/05/15 Omeprazole 20 mg GT DAILY 09/05/15 Ranitidine Oral Solution [Zantac Oral Solution -] 150 mg GT Q12H 09/05/15 Triamcinolone Acetonide [Nasacort] 10.8 ml NS DAILY 09/05/15 Ursodiol [Actigall] 300 mg GT TID 09/05/15 Vit C/Ascorbate Calcium,Sodium [Vitamin C 500 mg/15 ml Liquid] 1,000 mg GT DAILY 09/05/15 levETIRAcetam [Keppra Oral Solution -] 1,500 mg PO BID 09/05/15 This patient is new to me today: No Emergency Visit: No Critical Care patient: No - Discharge Referral Referred to [facility] No ATTENDING PHYSICIAN STATEMENT I saw and evaluated the patient. I reviewed the resident's note and discussed the case with the resident. I agree with the resident's findings and plan as documented. SUBJECTIVE: OBJECTIVE: ASSESSMENT AND PLAN:
== END 2019-11-01 17:46 | disposition home or self-care (01) | DRG 871 ==
LOC: JER 10:48 → JERBED 15:25 → J7W 19:00
PROVIDERS: ADMIT Internal Medicine; ATTEND Internal Medicine
DX: A41.89 Other specified sepsis (principal); R53.2 Functional quadriplegia; K72.00 Acute and subacute hepatic failure without coma; J96.01 Acute respiratory failure with hypoxia; J18.9 Pneumonia, unspecified organism; E87.2 Acidosis; E87.1 Hypo-osmolality and hyponatremia; J98.11 Atelectasis; J90 Pleural effusion, not elsewhere classified; T17.590A Other foreign object in bronchus causing asphyxiation, initial encounter; J98.09 Other diseases of bronchus, not elsewhere classified; E83.42 Hypomagnesemia; R65.20 Severe sepsis without septic shock; E83.39 Other disorders of phosphorus metabolism; E03.9 Hypothyroidism, unspecified; K59.09 Other constipation; G40.909 Epilepsy, unspecified, not intractable, without status epilepticus; R00.0 Tachycardia, unspecified; N83.292 Other ovarian cyst, left side; N83.291 Other ovarian cyst, right side; R79.89 Other specified abnormal findings of blood chemistry; Z87.820 Personal history of traumatic brain injury; Z93.1 Gastrostomy status; Z88.0 Allergy status to penicillin
CPT/HCPCS: 36415; 36600; 70490-TC; 71045-TC-FY; 71250-TC; 74176-TC; 80048; 80053; 81003; 82803; 82962; 83605; 83690; 83735; 83880; 84100; 84484; 85025; 85610; 85730; 87040; 87070; 87086; 87186; 87205; 87804; 87899; 93005; 93010; 93306-TC; 93971; 94640; 94761; 97161-GP; 99284-25; J0131; J1644; J7030; Q9967

== ENCOUNTER 2020-11-29 19:58 | Inpatient (IN) | payer OTHER ==
[2020-11-29 20:48] LABS: BASO % 0.5 % (0-2.0); EOS % 1.2 % (0-4.5); HEMATOCRIT 36.4 % (32.4-45.2); HEMOGLOBIN 12.2 GM/dL (10.7-15.3); LYMPH % 42.8 % (8-40); MCH 35.5 pg (25.7-33.7); MCHC 33.6 g/dl (32.0-36.0); MEAN CELL VOLUME 105.4 fl (80-96); MONO % 7.5 % (3.8-10.2); PLATELET COUNT 190 K/MM3 (134-434); RBC 3.45 M/mm3 (3.60-5.2); RDW 15.9 % (11.6-15.6); WHITE BLOOD COUNT 4.7 K/mm3 (4.0-10.0)
[2020-11-29 20:58] LABS: INR 0.9 (0.83-1.09); PROTHROMBIN TIME (PATIENT) 10.9 SEC (9.7-13.0)
[2020-11-29 21:01] LABS: ACTIVATED PTT 41.9 SECONDS (25.2-36.5)
[2020-11-29] MEDS ORDERED: ALBUTEROL SO4 2.5/IPRATROPIUM 0.5 INH SOL 3 ML VIAL.NEB. NEB ONE (21:02)
[2020-11-29] MEDS: ALBUTEROL SO4 2.5/IPRATROPIUM 0.5 INH SOL 3 ML VIAL.NEB. NEB SCH ×3 (21:06→21:46)
[2020-11-29 21:12] LABS: PH,URINE 7.5 (5.0-8.0); URINE APPEARANCE CLEAR; URINE BILIRUBIN NEGATIVE (NEGATIVE); URINE COLOR YELLOW; URINE GLUCOSE (UA) NEGATIVE (NEGATIVE); URINE KETONE NEGATIVE (NEGATIVE); URINE LEUK ESTERASE NEGATIVE (NEGATIVE); URINE NITRITE NEGATIVE (NEGATIVE); URINE PROTEIN NEGATIVE (NEGATIVE); URINE UROBILINOGEN 0.2 mg/dL (0.2-1.0)
[2020-11-29] MEDS ORDERED: LACTATED RINGERS SOLUTION 1000 ML INFUS.BAG IV ONE (21:19)
[2020-11-29 21:25] LABS: CHLORIDE 108 mmol/L (98-107); POTASSIUM 4.2 mmol/L (3.5-5.1); SODIUM 146 mmol/L (136-145)
[2020-11-29 21:27] LABS: CALCIUM 8.7 mg/dL (8.5-10.1)
[2020-11-29 21:28] LABS: ALBUMIN 3.5 g/dl (3.4-5.0); ANION GAP 5 MMOL/L (8-16); BLOOD UREA NITROGEN 9.5 mg/dL (7-18); CO2 33 mmol/L (21-32); GLUCOSE,RANDOM 81 mg/dL (74-106)
[2020-11-29 21:30] LABS: BILIRUBIN,DIRECT 0.1 mg/dL (0.0-0.2)
[2020-11-29 21:31] LABS: CREATININE 0.5 mg/dL (0.55-1.3); SGOT/AST 132 U/L (15-37); SGPT/ALT 127 U/L (13-61)
[2020-11-29 21:32] LABS: BILIRUBIN,TOTAL 0.4 mg/dL (0.2-1); LDH 341 U/L (84-246); TOT PROT 7.6 g/dl (6.4-8.2)
[2020-11-29 21:34] LABS: ALK PHOS 303 U/L (45-117)
[2020-11-29] MEDS ORDERED: SODIUM CHLORIDE 0.9% 500 ML INFUS.BAG IV ONE (21:34)
[2020-11-29 21:40] LABS: ANISOCYTOSIS 1+; MACROCYTOSIS 0; PLATELET ESTIMATE NORMAL
[2020-11-29] MEDS ORDERED: AZTREONAM 2 GM in DEXTROSE 5%-WATER 100 ML IVPB ONE (21:52)
[2020-11-29] MEDS ORDERED: AZITHROMYCIN IVPB 500 MG in DEXTROSE 5%-WATER - 250 ML IVPB ONE (21:52)
[2020-11-29] MEDS ORDERED: AZITHROMYCIN IVPB 500 MG/250 ML BAG IVPB ONE (22:12)
[2020-11-29 22:15] LABS: ARTERIAL BLD GAS O2 SATURATION 98.9 mmHg (95-98); ARTERIAL BLOOD GAS BASE EXCESS 0.6 mmol/L (-2-2); ARTERIAL BLOOD GAS PO2 164.4 mmHg (80-100); ARTERIAL BLOOD GAS pH 7.289 (7.350-7.450)
[2020-11-29] MEDS ORDERED: ALBUTEROL SO4 2.5/IPRATROPIUM 0.5 INH SOL 3 ML VIAL.NEB. NEB PRN (22:15)
[2020-11-29 22:25] LABS: ALLENS TEST POSITIVE
[2020-11-29] MEDS ORDERED: ALBUTEROL SO4 HFA INHALER IH PRN (23:49)
[2020-11-30 02:19] LABS: ALLENS TEST POSITIVE; ARTERIAL BLD GAS O2 SATURATION 98.5 mmHg (95-98); ARTERIAL BLOOD GAS BASE EXCESS -2.2 mmol/L (-2-2); ARTERIAL BLOOD GAS PO2 154.6 mmHg (80-100); ARTERIAL BLOOD GAS pH 7.204 (7.350-7.450)
[2020-11-30 02:21] LABS: PT'S TEMP 101
[2020-11-30] MEDS ORDERED: LEVOTHYROXINE NA 25 MCG TABLET (FP) ONE (06:15)
[2020-11-30] MEDS ORDERED: LEVOTHYROXINE NA 100 MCG TABLET (FP) GT SCH (07:00)
[2020-11-30 07:20] LABS: BASO % 0.1 % (0-2.0); HEMATOCRIT 33.7 % (32.4-45.2); HEMOGLOBIN 11.5 GM/dL (10.7-15.3); MEAN CELL VOLUME 105.7 fl (80-96); MONO % 2.7 % (3.8-10.2); NEUT % 94.2 % (42.8-82.8); RBC 3.19 M/mm3 (3.60-5.2); RDW 15.8 % (11.6-15.6); WHITE BLOOD COUNT 17.4 K/mm3 (4.0-10.0)
[2020-11-30 07:41] LABS: POTASSIUM 3.6 mmol/L (3.5-5.1)
[2020-11-30 07:43] LABS: CALCIUM 8.4 mg/dL (8.5-10.1)
[2020-11-30 07:44] LABS: ALBUMIN 3.3 g/dl (3.4-5.0); BLOOD UREA NITROGEN 11.3 mg/dL (7-18)
[2020-11-30 07:47] LABS: CREATININE 0.5 mg/dL (0.55-1.3)
[2020-11-30 07:48] LABS: BILIRUBIN,TOTAL 0.4 mg/dL (0.2-1); TOT PROT 7.1 g/dl (6.4-8.2)
[2020-11-30] MEDS ORDERED: DEXAMETHASONE SOD PHOSPHATE 4 MG/1 ML VIAL IVPUSH SCH (09:00)
[2020-11-30] MEDS ORDERED: DEXAMETHASONE SOD PHOSPHATE 4 MG/1 ML VIAL ONE (09:32)
[2020-11-30] MEDS ORDERED: AZITHROMYCIN IVPB 500 MG/250 ML BAG IVPB ONE (09:32)
[2020-11-30] MEDS ORDERED: ENOXAPARIN NA (PORCINE) 40 MG/0.4 ML DISP.SYRIN SQ ONE (09:36)
[2020-11-30 09:41] LABS: ANISOCYTOSIS 1+; MACROCYTOSIS 1+; PLATELET ESTIMATE NORMAL; TOXIC GRANULATION 2+
[2020-11-30] MEDS ORDERED: MAGNESIUM HYDROX 2400MG/30ML ORAL SUSPENSION 30 ML CUP GT SCH (10:00)
[2020-11-30] MEDS ORDERED: CHOLECALCIFEROL (VIT D3) 400 UNIT (10 MCG) TABLET PO SCH ×2 (10:00)
[2020-11-30] MEDS ORDERED: AZITHROMYCIN IVPB 500 MG/250 ML BAG IVPB SCH (10:00)
[2020-11-30] MEDS ORDERED: CHOLECALCIFEROL (VIT D3) 1,000 UNIT (25 MCG) TABLET GT SCH (10:00)
[2020-11-30] MEDS ORDERED: ENOXAPARIN NA (PORCINE) 40 MG/0.4 ML DISP.SYRIN SQ SCH (10:00)
[2020-11-30] MEDS ORDERED: levETIRAcetam 500 MG/5 ML ORAL SOLUTION (UNIT-DOSE CUPS) PO SCH (10:00)
[2020-11-30] MEDS ORDERED: CARBAMIDE PEROXIDE 6.5% OTIC 15 ML BOTTLE AU SCH (10:00)
[2020-11-30] MEDS ORDERED: ASCORBIC ACID 500 MG TABLET (FP) PO SCH (10:00)
[2020-11-30] MEDS ORDERED: CEFTRIAXONE 1 GM in DEXTROSE 5%-WATER - 50 ML IVPB SCH (10:00)
[2020-11-30] MEDS ORDERED: CHOLECALCIFEROL (VIT D SOLUTION) 400 UNIT/1 ML DROPS GT SCH (10:00)
[2020-11-30] MEDS ORDERED: ZINC SULFATE 220 MG CAPSULE (FP) GT SCH (10:00)
[2020-11-30] MEDS ORDERED: ZINC SULFATE 220 MG TABLET GT SCH (10:00)
[2020-11-30] MEDS ORDERED: ZINC SULFATE 220 MG CAPSULE (FP) PO SCH (10:00)
[2020-11-30] MEDS: levETIRAcetam 500 MG/5 ML ORAL SOLUTION (UNIT-DOSE CUPS) GT SCH ×2 (10:47→23:06)
[2020-11-30] MEDS: ASCORBIC ACID 500 MG/5 ML UNIT DOSE CUP GT SCH ×2 (10:47→23:05)
[2020-11-30] MEDS ORDERED: ZINC SULFATE 220 MG CAPSULE (FP) ONE (11:30)
[2020-11-30] MEDS ORDERED: SUCCINYLCHOLINE CHLORIDE 200 MG/10 ML VIAL IVPUSH ONE (12:30)
[2020-11-30] MEDS ORDERED: SODIUM CHLORIDE 1,000 ML IV STA (12:30)
[2020-11-30] MEDS ORDERED: ETOMIDATE 40 MG/20 ML VIAL IVPUSH ONE (12:30)
[2020-11-30] MEDS ORDERED: RAPID SEQUENCE INTUBATION KIT NR ONE (12:41)
[2020-11-30 12:47] LABS: PLATELET COUNT 178 K/MM3 (134-434)
[2020-11-30 12:48] LABS: MEAN PLT VOLUME 8.7 fl (7.5-11.1)
[2020-11-30] MEDS ORDERED: PROPOFOL 1,000,000 MCG/100 ML VIAL IVPB SCH (13:00)
[2020-11-30] MEDS ORDERED: PNEUMOC 13-VAL CONJ-DIP CRM/PF 0.5 ML DISP.SYRIN IM ONE (16:13)
[2020-11-30 18:12] LABS: ARTERIAL BLD GAS O2 SATURATION 99.7 mmHg (95-98); ARTERIAL BLOOD GAS BASE EXCESS 3.1 mmol/L (-2-2); ARTERIAL BLOOD GAS PO2 321.9 mmHg (80-100); ARTERIAL BLOOD GAS pH 7.431 (7.350-7.450)
[2020-11-30 18:31] LABS: ALLENS TEST POSITIVE
[2020-11-30 18:32] LABS: VENT MODE A/C; VENT RATE 16
[2020-11-30] MEDS: PROPOFOL 1,000,000 MCG/100 ML VIAL IVPB SCH (19:00)
[2020-11-30] MEDS ORDERED: OCULAR LUBRICANT OPHTHALMIC OINTMENT 7 GM TUBE OU SCH (22:00)
[2020-11-30] MEDS: URSODIOL 300 MG CAPSULE PO SCH (22:10)
[2020-11-30] MEDS ORDERED: DEXTROSE 5%-WATER - 50 ML IVPB ONE (22:17)
[2020-11-30] MEDS ORDERED: AZTREONAM 1 GM VIAL (RESTRICTED TO ID) ONE (22:17)
[2020-11-30] MEDS ORDERED: PT OWN MED DRAWER 7, Y5N ONE (22:18)
[2020-11-30] MEDS: AZTREONAM 1 GM in DEXTROSE 5%-WATER - 50 ML IVPB SCH (22:24)
[2020-11-30] MEDS: CHLORHEXIDINE GLUCONATE 4% CLEANSER FOR DECOLONIZATION TP SCH (22:27)
[2020-11-30] MEDS: MUPIROCIN 2% TOPICAL OINTMENT FOR DECOLONIZATION NS SCH (22:27)
[2020-11-30] MEDS: CLINDAMYCIN 600MG PREMIX IVPB 600 MG/50 ML BAG IVPB SCH (22:57)
[2020-11-30] MEDS: FAMOTIDINE 20 MG/50 ML IVPB 20 MG/50 ML MG IVPB SCH (23:05)
[2020-11-30] MEDS: FENTANYL NS IVPB 500 MCG/100 ML BAG IVPB SCH (23:05)
[2020-11-30] MEDS ORDERED: ALBUTEROL SO4 2.5/IPRATROPIUM 0.5 INH SOL 3 ML VIAL.NEB. NEB ONE (23:21)
[2020-12-01] MEDS ORDERED: AZTREONAM 1 GM VIAL (RESTRICTED TO ID) ONE ×3 (01:09→17:23)
[2020-12-01] MEDS ORDERED: DEXTROSE 5%-WATER - 50 ML IVPB ONE ×3 (01:09→17:23)
[2020-12-01] MEDS: AZTREONAM 1 GM in DEXTROSE 5%-WATER - 50 ML IVPB SCH ×3 (02:29→17:46)
[2020-12-01] MEDS: CLINDAMYCIN 600MG PREMIX IVPB 600 MG/50 ML BAG IVPB SCH ×3 (03:04→17:46)
[2020-12-01] MEDS: LEVOTHYROXINE NA 100 MCG TABLET (FP) GT SCH (06:13)
[2020-12-01] MEDS: URSODIOL 300 MG CAPSULE PO SCH ×3 (06:13→22:56)
[2020-12-01] MEDS ORDERED: PT OWN MED DRAWER 7, Y5N ONE ×4 (06:20→22:53)
[2020-12-01 07:23] LABS: BASO % 0.3 % (0-2.0); EOS % 0.1 % (0-4.5); HEMATOCRIT 26.6 % (32.4-45.2); HEMOGLOBIN 9.3 GM/dL (10.7-15.3); LYMPH % 10.1 % (8-40); MCH 36.2 pg (25.7-33.7); MCHC 34.9 g/dl (32.0-36.0); MEAN CELL VOLUME 103.7 fl (80-96); MEAN PLT VOLUME 8.6 fl (7.5-11.1); MONO % 5.7 % (3.8-10.2); NEUT % 83.8 % (42.8-82.8); PLATELET COUNT 147 K/MM3 (134-434); RBC 2.56 M/mm3 (3.60-5.2); RDW 15.9 % (11.6-15.6); WHITE BLOOD COUNT 10.8 K/mm3 (4.0-10.0)
[2020-12-01 07:42] LABS: POTASSIUM 3.6 mmol/L (3.5-5.1)
[2020-12-01 07:48] LABS: CALCIUM 8.3 mg/dL (8.5-10.1)
[2020-12-01 07:49] LABS: ALBUMIN 2.6 g/dl (3.4-5.0); BLOOD UREA NITROGEN 13.5 mg/dL (7-18); MAGNESIUM 2.1 mg/dL (1.8-2.4)
[2020-12-01 07:52] LABS: BILIRUBIN,TOTAL 0.9 mg/dL (0.2-1); CREATININE 0.3 mg/dL (0.55-1.3); TOT PROT 5.8 g/dl (6.4-8.2)
[2020-12-01] MEDS: CHOLECALCIFEROL (VIT D SOLUTION) 400 UNIT/1 ML DROPS GT SCH (10:00)
[2020-12-01] MEDS: MUPIROCIN 2% TOPICAL OINTMENT FOR DECOLONIZATION NS SCH ×2 (10:22→22:56)
[2020-12-01] MEDS: ENOXAPARIN NA (PORCINE) 40 MG/0.4 ML DISP.SYRIN SQ SCH (10:22)
[2020-12-01] MEDS: DEXAMETHASONE SOD PHOSPHATE 4 MG/1 ML VIAL IVPUSH SCH (10:39)
[2020-12-01] MEDS: MAGNESIUM HYDROX 2400MG/30ML ORAL SUSPENSION 30 ML CUP GT SCH (10:39)
[2020-12-01] MEDS: FAMOTIDINE 20 MG/50 ML IVPB 20 MG/50 ML MG IVPB SCH ×2 (10:39→22:56)
[2020-12-01] MEDS: ASCORBIC ACID 500 MG/5 ML UNIT DOSE CUP GT SCH ×2 (10:39→22:56)
[2020-12-01] MEDS: levETIRAcetam 500 MG/5 ML ORAL SOLUTION (UNIT-DOSE CUPS) GT SCH (10:39)
[2020-12-01] MEDS: ZINC SULFATE 220 MG CAPSULE (FP) GT SCH (10:39)
[2020-12-01] MEDS ORDERED: fentaNYL CITRATE 250 MCG/5 ML VIAL ONE (12:29)
[2020-12-01] MEDS: CARBAMIDE PEROXIDE 6.5% OTIC 15 ML BOTTLE AU SCH (18:25)
[2020-12-01] MEDS ORDERED: FENTANYL IVPB 500 MCG/100 ML BAG IVPB ONE (18:27)
[2020-12-01] MEDS: FENTANYL NS IVPB 500 MCG/100 ML BAG IVPB SCH (22:56)
[2020-12-01] MEDS: CHLORHEXIDINE GLUCONATE 4% CLEANSER FOR DECOLONIZATION TP SCH (22:56)
[2020-12-01] MEDS: PROPOFOL 1,000,000 MCG/100 ML VIAL IVPB SCH (22:57)
[2020-12-02] MEDS: levETIRAcetam 500 MG/5 ML ORAL SOLUTION (UNIT-DOSE CUPS) GT SCH ×3 (01:10→21:27)
[2020-12-02] MEDS: OCULAR LUBRICANT OPHTHALMIC OINTMENT 7 GM TUBE OU SCH ×2 (01:55→21:29)
[2020-12-02] MEDS: AZTREONAM 1 GM in DEXTROSE 5%-WATER - 50 ML IVPB SCH ×3 (02:00→17:38)
[2020-12-02] MEDS ORDERED: AZTREONAM 1 GM VIAL (RESTRICTED TO ID) ONE ×3 (02:02→15:40)
[2020-12-02] MEDS ORDERED: DEXTROSE 5%-WATER - 50 ML IVPB ONE ×3 (02:02→15:40)
[2020-12-02] MEDS: CLINDAMYCIN 600MG PREMIX IVPB 600 MG/50 ML BAG IVPB SCH ×3 (02:30→17:38)
[2020-12-02] MEDS ORDERED: PT OWN MED DRAWER 7, Y5N ONE (03:59)
[2020-12-02] MEDS ORDERED: fentaNYL CITRATE 250 MCG/5 ML VIAL ONE (04:49)
[2020-12-02] MEDS: LEVOTHYROXINE NA 100 MCG TABLET (FP) GT SCH (06:10)
[2020-12-02] MEDS: URSODIOL 300 MG CAPSULE PO SCH ×3 (06:10→21:25)
[2020-12-02 06:48] LABS: BASO % 0.3 % (0-2.0); HEMATOCRIT 26.9 % (32.4-45.2); HEMOGLOBIN 9.2 GM/dL (10.7-15.3); LYMPH % 17.1 % (8-40); MCH 36.2 pg (25.7-33.7); MCHC 34.3 g/dl (32.0-36.0); MEAN CELL VOLUME 105.5 fl (80-96); MEAN PLT VOLUME 9.9 fl (7.5-11.1); MONO % 10.1 % (3.8-10.2); NEUT % 72.5 % (42.8-82.8); PLATELET COUNT 158 K/MM3 (134-434); RBC 2.55 M/mm3 (3.60-5.2); RDW 16.1 % (11.6-15.6); WHITE BLOOD COUNT 7.5 K/mm3 (4.0-10.0)
[2020-12-02 07:11] LABS: POTASSIUM 3.3 mmol/L (3.5-5.1)
[2020-12-02 07:15] LABS: CALCIUM 8.2 mg/dL (8.5-10.1)
[2020-12-02 07:16] LABS: ALBUMIN 2.6 g/dl (3.4-5.0); MAGNESIUM 2.1 mg/dL (1.8-2.4)
[2020-12-02 07:19] LABS: CREATININE 0.4 mg/dL (0.55-1.3)
[2020-12-02 07:20] LABS: BILIRUBIN,TOTAL 0.6 mg/dL (0.2-1)
[2020-12-02] MEDS: MUPIROCIN 2% TOPICAL OINTMENT FOR DECOLONIZATION NS SCH ×2 (09:50→21:27)
[2020-12-02] MEDS: FAMOTIDINE 20 MG/50 ML IVPB 20 MG/50 ML MG IVPB SCH ×2 (09:52→21:35)
[2020-12-02] MEDS: ZINC SULFATE 220 MG CAPSULE (FP) GT SCH (09:53)
[2020-12-02] MEDS: DEXAMETHASONE SOD PHOSPHATE 4 MG/1 ML VIAL IVPUSH SCH (09:53)
[2020-12-02] MEDS: MAGNESIUM HYDROX 2400MG/30ML ORAL SUSPENSION 30 ML CUP GT SCH (09:55)
[2020-12-02] MEDS: ASCORBIC ACID 500 MG/5 ML UNIT DOSE CUP GT SCH ×2 (09:58→21:31)
[2020-12-02] MEDS: ENOXAPARIN NA (PORCINE) 40 MG/0.4 ML DISP.SYRIN SQ SCH (10:20)
[2020-12-02] MEDS: CHOLECALCIFEROL (VIT D SOLUTION) 400 UNIT/1 ML DROPS GT SCH (13:05)
[2020-12-02] MEDS: CARBAMIDE PEROXIDE 6.5% OTIC 15 ML BOTTLE AU SCH (13:06)
[2020-12-02] MEDS: FENTANYL NS IVPB 500 MCG/100 ML BAG IVPB SCH (19:00)
[2020-12-02] MEDS: PROPOFOL 1,000,000 MCG/100 ML VIAL IVPB SCH (19:00)
[2020-12-02] MEDS: CHLORHEXIDINE GLUCONATE 4% CLEANSER FOR DECOLONIZATION TP SCH (21:27)
[2020-12-02] MEDS ORDERED: POTASSIUM CHLORIDE ORAL LIQUID 20 MEQ/15 ML NGT ONE (22:50)
[2020-12-03] MEDS ORDERED: DEXTROSE 5%-WATER - 50 ML IVPB ONE ×3 (01:17→16:46)
[2020-12-03] MEDS ORDERED: AZTREONAM 1 GM VIAL (RESTRICTED TO ID) ONE ×3 (01:17→16:46)
[2020-12-03] MEDS: AZTREONAM 1 GM in DEXTROSE 5%-WATER - 50 ML IVPB SCH ×3 (01:21→17:19)
[2020-12-03] MEDS: CLINDAMYCIN 600MG PREMIX IVPB 600 MG/50 ML BAG IVPB SCH ×3 (01:21→17:19)
[2020-12-03] MEDS: URSODIOL 300 MG CAPSULE PO SCH ×3 (05:42→21:01)
[2020-12-03] MEDS: LEVOTHYROXINE NA 100 MCG TABLET (FP) GT SCH (06:36)
[2020-12-03] MEDS ORDERED: LACTATED RINGERS SOLUTION 1000 ML INFUS.BAG IV STA (06:38)
[2020-12-03 07:00] LABS: BASO % 0.6 % (0-2.0); EOS % 0.3 % (0-4.5); HEMATOCRIT 30.4 % (32.4-45.2); HEMOGLOBIN 10.5 GM/dL (10.7-15.3); LYMPH % 18.3 % (8-40); MCH 36.4 pg (25.7-33.7); MCHC 34.7 g/dl (32.0-36.0); MEAN CELL VOLUME 105.1 fl (80-96); MEAN PLT VOLUME 9.4 fl (7.5-11.1); MONO % 9.2 % (3.8-10.2); NEUT % 71.6 % (42.8-82.8); PLATELET COUNT 210 K/MM3 (134-434); RBC 2.89 M/mm3 (3.60-5.2); RDW 15.9 % (11.6-15.6); WHITE BLOOD COUNT 10.7 K/mm3 (4.0-10.0)
[2020-12-03 07:24] LABS: POTASSIUM 3.9 mmol/L (3.5-5.1)
[2020-12-03 07:28] LABS: ALBUMIN 2.9 g/dl (3.4-5.0); CALCIUM 8.6 mg/dL (8.5-10.1); MAGNESIUM 2.2 mg/dL (1.8-2.4)
[2020-12-03 07:31] LABS: CREATININE 0.5 mg/dL (0.55-1.3); PHOSPHOROUS 2.5 mg/dL (2.5-4.9)
[2020-12-03 07:33] LABS: BILIRUBIN,TOTAL 0.6 mg/dL (0.2-1); TOT PROT 6.5 g/dl (6.4-8.2)
[2020-12-03] MEDS: LACTATED RINGERS SOLUTION 1,000 ML/1,000 ML INFUS.BAG IV SCH (07:49)
[2020-12-03] MEDS ORDERED: PT OWN MED DRAWER 7, Y5N ONE ×3 (10:26→19:50)
[2020-12-03] MEDS: MAGNESIUM HYDROX 2400MG/30ML ORAL SUSPENSION 30 ML CUP GT SCH (10:37)
[2020-12-03] MEDS: ENOXAPARIN NA (PORCINE) 40 MG/0.4 ML DISP.SYRIN SQ SCH (10:37)
[2020-12-03] MEDS: FAMOTIDINE 20 MG/50 ML IVPB 20 MG/50 ML MG IVPB SCH ×2 (10:37→21:02)
[2020-12-03] MEDS: ASCORBIC ACID 500 MG/5 ML UNIT DOSE CUP GT SCH (10:38)
[2020-12-03] MEDS: levETIRAcetam 500 MG/5 ML ORAL SOLUTION (UNIT-DOSE CUPS) GT SCH ×2 (10:38→21:01)
[2020-12-03] MEDS: CHOLECALCIFEROL (VIT D SOLUTION) 400 UNIT/1 ML DROPS GT SCH (10:38)
[2020-12-03] MEDS: CARBAMIDE PEROXIDE 6.5% OTIC 15 ML BOTTLE AU SCH (10:40)
[2020-12-03] MEDS: MUPIROCIN 2% TOPICAL OINTMENT FOR DECOLONIZATION NS SCH ×2 (10:40→21:01)
[2020-12-03] MEDS: DEXAMETHASONE SOD PHOSPHATE 4 MG/1 ML VIAL IVPUSH SCH (14:06)
[2020-12-03] MEDS: ZINC SULFATE 220 MG CAPSULE (FP) GT SCH (14:07)
[2020-12-03 15:45] LABS: ANISOCYTOSIS 1+; MACROCYTOSIS 2+; PLATELET ESTIMATE NORMAL
[2020-12-03] MEDS: CHLORHEXIDINE GLUCONATE 4% CLEANSER FOR DECOLONIZATION TP SCH (21:01)
[2020-12-03] MEDS: OCULAR LUBRICANT OPHTHALMIC OINTMENT 7 GM TUBE OU SCH (21:01)
[2020-12-04] MEDS ORDERED: AZTREONAM 1 GM VIAL (RESTRICTED TO ID) ONE ×3 (00:49→15:16)
[2020-12-04] MEDS ORDERED: DEXTROSE 5%-WATER - 50 ML IVPB ONE ×3 (00:49→15:17)
[2020-12-04] MEDS: CLINDAMYCIN 600MG PREMIX IVPB 600 MG/50 ML BAG IVPB SCH ×3 (01:39→17:29)
[2020-12-04] MEDS: AZTREONAM 1 GM in DEXTROSE 5%-WATER - 50 ML IVPB SCH ×3 (01:39→17:28)
[2020-12-04] MEDS: LACTATED RINGERS SOLUTION 1,000 ML/1,000 ML INFUS.BAG IV SCH (02:00)
[2020-12-04] MEDS: URSODIOL 300 MG CAPSULE PO SCH ×3 (06:19→22:03)
[2020-12-04] MEDS: LEVOTHYROXINE NA 100 MCG TABLET (FP) GT SCH (06:19)
[2020-12-04 07:11] LABS: BASO % 0.3 % (0-2.0); EOS % 0.3 % (0-4.5); HEMATOCRIT 27.8 % (32.4-45.2); HEMOGLOBIN 9.5 GM/dL (10.7-15.3); LYMPH % 11.2 % (8-40); MCH 36.1 pg (25.7-33.7); MCHC 34.1 g/dl (32.0-36.0); MEAN CELL VOLUME 105.8 fl (80-96); MEAN PLT VOLUME 8.8 fl (7.5-11.1); MONO % 4.7 % (3.8-10.2); NEUT % 83.5 % (42.8-82.8); PLATELET COUNT 190 K/MM3 (134-434); RBC 2.63 M/mm3 (3.60-5.2); RDW 15.8 % (11.6-15.6); WHITE BLOOD COUNT 8.9 K/mm3 (4.0-10.0)
[2020-12-04 07:24] LABS: POTASSIUM 3.4 mmol/L (3.5-5.1)
[2020-12-04 07:32] LABS: ALBUMIN 2.5 g/dl (3.4-5.0); BLOOD UREA NITROGEN 12.9 mg/dL (7-18)
[2020-12-04 07:34] LABS: TOT PROT 5.8 g/dl (6.4-8.2)
[2020-12-04 07:35] LABS: CALCIUM 8.1 mg/dL (8.5-10.1)
[2020-12-04 07:36] LABS: CREATININE 0.3 mg/dL (0.55-1.3)
[2020-12-04 07:39] LABS: MAGNESIUM 1.8 mg/dL (1.8-2.4)
[2020-12-04] MEDS ORDERED: NAPH,MB-DB/K PH,MBDB POWDER PACKET PO ONE (09:29)
[2020-12-04] MEDS ORDERED: KCL 10 MEQ IVPB 10 MEQ/100 ML INFUS.BAG IVPB SCH (09:30)
[2020-12-04] MEDS ORDERED: PT OWN MED DRAWER 7, Y5N ONE ×3 (09:48→22:07)
[2020-12-04] MEDS ORDERED: NAPH,MB-DB/K PH,MBDB POWDER PACKET GT ONE (09:51)
[2020-12-04] MEDS ORDERED: POTASSIUM CHLORIDE ORAL LIQUID 20 MEQ/15 ML GT ONE (09:51)
[2020-12-04] MEDS: FAMOTIDINE 20 MG/50 ML IVPB 20 MG/50 ML MG IVPB SCH ×2 (09:53→22:01)
[2020-12-04] MEDS: ENOXAPARIN NA (PORCINE) 40 MG/0.4 ML DISP.SYRIN SQ SCH (09:53)
[2020-12-04] MEDS: MAGNESIUM HYDROX 2400MG/30ML ORAL SUSPENSION 30 ML CUP GT SCH (09:53)
[2020-12-04] MEDS: levETIRAcetam 500 MG/5 ML ORAL SOLUTION (UNIT-DOSE CUPS) GT SCH ×2 (09:54→22:03)
[2020-12-04] MEDS: CHOLECALCIFEROL (VIT D SOLUTION) 400 UNIT/1 ML DROPS GT SCH (09:55)
[2020-12-04] MEDS: ASCORBIC ACID 500 MG/5 ML UNIT DOSE CUP GT SCH (09:55)
[2020-12-04] MEDS: MUPIROCIN 2% TOPICAL OINTMENT FOR DECOLONIZATION NS SCH ×2 (09:57→22:03)
[2020-12-04] MEDS: CARBAMIDE PEROXIDE 6.5% OTIC 15 ML BOTTLE AU SCH (10:13)
[2020-12-04] MEDS: ACETYLCYSTEINE 20% 200MG/ML 4 ML VIAL *FOR ORAL / INH USE ONLY NEB SCH (20:30)
[2020-12-04] MEDS: CHLORHEXIDINE GLUCONATE 4% CLEANSER FOR DECOLONIZATION TP SCH (22:03)
[2020-12-04] MEDS: OCULAR LUBRICANT OPHTHALMIC OINTMENT 7 GM TUBE OU SCH (22:04)
[2020-12-04] MEDS: LINEZOLID 600 MG PREMIX BAG 600 MG in PREMIX 300 IVPB SCH (22:32)
[2020-12-05] MEDS ORDERED: AZTREONAM 1 GM VIAL (RESTRICTED TO ID) ONE ×3 (00:33→16:56)
[2020-12-05] MEDS ORDERED: DEXTROSE 5%-WATER - 50 ML IVPB ONE ×3 (00:33→16:57)
[2020-12-05] MEDS: AZTREONAM 1 GM in DEXTROSE 5%-WATER - 50 ML IVPB SCH ×3 (01:30→17:08)
[2020-12-05] MEDS: LACTATED RINGERS SOLUTION 1,000 ML/1,000 ML INFUS.BAG IV SCH (05:48)
[2020-12-05] MEDS: URSODIOL 300 MG CAPSULE PO SCH ×3 (06:01→21:55)
[2020-12-05] MEDS: LEVOTHYROXINE NA 100 MCG TABLET (FP) GT SCH (06:01)
[2020-12-05 07:21] LABS: POTASSIUM 4.3 mmol/L (3.5-5.1)
[2020-12-05 07:26] LABS: ALBUMIN 2.3 g/dl (3.4-5.0); CALCIUM 8.4 mg/dL (8.5-10.1)
[2020-12-05 07:27] LABS: MAGNESIUM 1.8 mg/dL (1.8-2.4)
[2020-12-05 07:29] LABS: CREATININE 0.3 mg/dL (0.55-1.3); PHOSPHOROUS 3.2 mg/dL (2.5-4.9)
[2020-12-05 07:31] LABS: BILIRUBIN,TOTAL 0.6 mg/dL (0.2-1); TOT PROT 5.5 g/dl (6.4-8.2)
[2020-12-05] MEDS: ACETYLCYSTEINE 20% 200MG/ML 4 ML VIAL *FOR ORAL / INH USE ONLY NEB SCH ×4 (08:00→20:30)
[2020-12-05 08:17] LABS: BASO % 0.3 % (0-2.0); HEMATOCRIT 29.9 % (32.4-45.2); HEMOGLOBIN 9.9 GM/dL (10.7-15.3); LYMPH % 16.4 % (8-40); MCH 35.5 pg (25.7-33.7); MCHC 33.1 g/dl (32.0-36.0); MEAN CELL VOLUME 107.1 fl (80-96); MEAN PLT VOLUME 10.5 fl (7.5-11.1); MONO % 5.9 % (3.8-10.2); NEUT % 76.4 % (42.8-82.8); RDW 15.4 % (11.6-15.6); WHITE BLOOD COUNT 8.8 K/mm3 (4.0-10.0)
[2020-12-05] MEDS ORDERED: PT OWN MED DRAWER 7, Y5N ONE ×3 (09:41→21:52)
[2020-12-05] MEDS: LINEZOLID 600 MG PREMIX BAG 600 MG in PREMIX 300 IVPB SCH ×2 (10:02→21:55)
[2020-12-05] MEDS: levETIRAcetam 500 MG/5 ML ORAL SOLUTION (UNIT-DOSE CUPS) GT SCH ×2 (10:03→21:55)
[2020-12-05] MEDS: MAGNESIUM HYDROX 2400MG/30ML ORAL SUSPENSION 30 ML CUP GT SCH (10:03)
[2020-12-05] MEDS: ENOXAPARIN NA (PORCINE) 40 MG/0.4 ML DISP.SYRIN SQ SCH (10:03)
[2020-12-05] MEDS: FAMOTIDINE 20 MG/50 ML IVPB 20 MG/50 ML MG IVPB SCH ×2 (10:03→23:30)
[2020-12-05] MEDS: CHOLECALCIFEROL (VIT D SOLUTION) 400 UNIT/1 ML DROPS GT SCH (10:03)
[2020-12-05] MEDS: MUPIROCIN 2% TOPICAL OINTMENT FOR DECOLONIZATION NS SCH (10:03)
[2020-12-05] MEDS ORDERED: ALBUTEROL SO4 0.5 % INH SOLN 2.5 MG/0.5 ML VIAL.NEB. NEB ONE ×2 (10:46→16:53)
[2020-12-05] MEDS: ALBUTEROL SO4 0.042% IH SOL 1.25 MG/3 ML VIAL.NEB NEB PRN ×2 (11:10→17:43)
[2020-12-05] MEDS: CARBAMIDE PEROXIDE 6.5% OTIC 15 ML BOTTLE AU SCH (12:09)
[2020-12-05 13:13] LABS: PLATELET ESTIMATE DECREASED
[2020-12-05 13:22] LABS: PLATELET COUNT 67 K/MM3 (134-434)
[2020-12-05] MEDS: ALBUTEROL SO4 0.083% IH SOL 2.5 MG/3 ML VIAL.NEB. NEB PRN (20:30)
[2020-12-05] MEDS: CHLORHEXIDINE GLUCONATE 4% CLEANSER FOR DECOLONIZATION TP SCH (21:55)
[2020-12-05] MEDS: OCULAR LUBRICANT OPHTHALMIC OINTMENT 7 GM TUBE OU SCH (21:55)
[2020-12-06] MEDS ORDERED: DEXTROSE 5%-WATER - 50 ML IVPB ONE ×3 (01:23→17:11)
[2020-12-06] MEDS ORDERED: AZTREONAM 1 GM VIAL (RESTRICTED TO ID) ONE ×3 (01:23→17:10)
[2020-12-06] MEDS ORDERED: PT OWN MED DRAWER 7, Y5N ONE ×5 (01:24→21:03)
[2020-12-06] MEDS: AZTREONAM 1 GM in DEXTROSE 5%-WATER - 50 ML IVPB SCH ×3 (01:31→17:14)
[2020-12-06] MEDS: URSODIOL 300 MG CAPSULE PO SCH ×3 (05:56→21:59)
[2020-12-06] MEDS: LEVOTHYROXINE NA 100 MCG TABLET (FP) GT SCH (06:02)
[2020-12-06 07:38] LABS: BASO % 0.2 % (0-2.0); EOS % 1.1 % (0-4.5); HEMATOCRIT 26.5 % (32.4-45.2); HEMOGLOBIN 9.2 GM/dL (10.7-15.3); LYMPH % 21.6 % (8-40); MCH 36.4 pg (25.7-33.7); MCHC 34.8 g/dl (32.0-36.0); MEAN CELL VOLUME 104.7 fl (80-96); MEAN PLT VOLUME 8.8 fl (7.5-11.1); MONO % 9.9 % (3.8-10.2); NEUT % 67.2 % (42.8-82.8); PLATELET COUNT 238 K/MM3 (134-434); RBC 2.53 M/mm3 (3.60-5.2); RDW 14.9 % (11.6-15.6); WHITE BLOOD COUNT 7.5 K/mm3 (4.0-10.0)
[2020-12-06 08:05] LABS: ALBUMIN 2.4 g/dl (3.4-5.0)
[2020-12-06 08:06] LABS: BILIRUBIN,TOTAL 0.5 mg/dL (0.2-1); TOT PROT 5.8 g/dl (6.4-8.2)
[2020-12-06 08:08] LABS: CREATININE 0.3 mg/dL (0.55-1.3); PHOSPHOROUS 3.8 mg/dL (2.5-4.9)
[2020-12-06 08:09] LABS: BLOOD UREA NITROGEN 7.2 mg/dL (7-18); CALCIUM 8.3 mg/dL (8.5-10.1)
[2020-12-06] MEDS: ACETYLCYSTEINE 20% 200MG/ML 4 ML VIAL *FOR ORAL / INH USE ONLY NEB SCH ×4 (08:11→20:15)
[2020-12-06] MEDS: ALBUTEROL SO4 0.083% IH SOL 2.5 MG/3 ML VIAL.NEB. NEB PRN ×3 (08:11→20:15)
[2020-12-06 08:12] LABS: MAGNESIUM 1.7 mg/dL (1.8-2.4)
[2020-12-06] MEDS ORDERED: MAGNESIUM SULF 50% (8.12 MEQ/2 ML-1 GM VIAL) IVPB ONE (08:21)
[2020-12-06] MEDS ORDERED: MAGNESIUM 1GM/D5W - 1 GM/100 ML IVPB IVPB ONE (08:30)
[2020-12-06] MEDS: LINEZOLID 600 MG PREMIX BAG 600 MG in PREMIX 300 IVPB SCH (09:16)
[2020-12-06] MEDS: levETIRAcetam 500 MG/5 ML ORAL SOLUTION (UNIT-DOSE CUPS) GT SCH ×2 (09:17→21:59)
[2020-12-06] MEDS: ENOXAPARIN NA (PORCINE) 40 MG/0.4 ML DISP.SYRIN SQ SCH (09:17)
[2020-12-06] MEDS: FAMOTIDINE 20 MG/50 ML IVPB 20 MG/50 ML MG IVPB SCH ×2 (09:17→21:59)
[2020-12-06] MEDS: CHOLECALCIFEROL (VIT D SOLUTION) 400 UNIT/1 ML DROPS GT SCH (09:17)
[2020-12-06] MEDS: MAGNESIUM HYDROX 2400MG/30ML ORAL SUSPENSION 30 ML CUP GT SCH (09:17)
[2020-12-06] MEDS: CARBAMIDE PEROXIDE 6.5% OTIC 15 ML BOTTLE AU SCH (09:18)
[2020-12-06] MEDS ORDERED: FUROSEMIDE 40 MG/4 ML INJECTABLE VIAL IVPUSH ONE (10:25)
[2020-12-06] MEDS: OCULAR LUBRICANT OPHTHALMIC OINTMENT 7 GM TUBE OU SCH (21:59)
[2020-12-06] MEDS: CHLORHEXIDINE GLUCONATE 4% CLEANSER FOR DECOLONIZATION TP SCH (21:59)
[2020-12-06] MEDS: LINEZOLID 600 MG PREMIX BAG 600 MG/300 ML BAG IVPB SCH (23:41)
[2020-12-07] MEDS ORDERED: DEXTROSE 5%-WATER - 50 ML IVPB ONE ×3 (03:05→17:37)
[2020-12-07] MEDS ORDERED: AZTREONAM 1 GM VIAL (RESTRICTED TO ID) ONE ×3 (03:05→17:37)
[2020-12-07] MEDS: AZTREONAM 1 GM in DEXTROSE 5%-WATER - 50 ML IVPB SCH ×3 (03:19→18:21)
[2020-12-07] MEDS: LEVOTHYROXINE NA 100 MCG TABLET (FP) GT SCH (06:01)
[2020-12-07] MEDS: URSODIOL 300 MG CAPSULE PO SCH ×3 (06:02→22:43)
[2020-12-07 06:33] LABS: BASO % 0.2 % (0-2.0); EOS % 1.4 % (0-4.5); HEMATOCRIT 28.9 % (32.4-45.2); HEMOGLOBIN 9.9 GM/dL (10.7-15.3); LYMPH % 19.4 % (8-40); MCH 35.9 pg (25.7-33.7); MCHC 34.2 g/dl (32.0-36.0); MEAN CELL VOLUME 104.9 fl (80-96); MEAN PLT VOLUME 8.6 fl (7.5-11.1); MONO % 12.3 % (3.8-10.2); NEUT % 66.7 % (42.8-82.8); PLATELET COUNT 304 K/MM3 (134-434); RBC 2.76 M/mm3 (3.60-5.2); RDW 15.1 % (11.6-15.6); WHITE BLOOD COUNT 7.2 K/mm3 (4.0-10.0)
[2020-12-07 06:57] LABS: CALCIUM 8.4 mg/dL (8.5-10.1)
[2020-12-07 06:58] LABS: ALBUMIN 2.5 g/dl (3.4-5.0); BLOOD UREA NITROGEN 9.1 mg/dL (7-18); MAGNESIUM 1.9 mg/dL (1.8-2.4)
[2020-12-07 07:01] LABS: CREATININE 0.3 mg/dL (0.55-1.3); PHOSPHOROUS 3.4 mg/dL (2.5-4.9)
[2020-12-07 07:02] LABS: BILIRUBIN,TOTAL 0.4 mg/dL (0.2-1)
[2020-12-07 07:04] LABS: TOT PROT 6.1 g/dl (6.4-8.2)
[2020-12-07] MEDS: ACETYLCYSTEINE 20% 200MG/ML 4 ML VIAL *FOR ORAL / INH USE ONLY NEB SCH ×4 (09:00→20:10)
[2020-12-07] MEDS ORDERED: PT OWN MED DRAWER 7, Y5N ONE ×2 (09:35→22:40)
[2020-12-07] MEDS: levETIRAcetam 500 MG/5 ML ORAL SOLUTION (UNIT-DOSE CUPS) GT SCH ×2 (09:39→22:43)
[2020-12-07] MEDS: CHOLECALCIFEROL (VIT D SOLUTION) 400 UNIT/1 ML DROPS GT SCH (09:41)
[2020-12-07] MEDS: ENOXAPARIN NA (PORCINE) 40 MG/0.4 ML DISP.SYRIN SQ SCH (09:44)
[2020-12-07] MEDS: FAMOTIDINE 20 MG/50 ML IVPB 20 MG/50 ML MG IVPB SCH ×2 (09:45→22:43)
[2020-12-07] MEDS: LINEZOLID 600 MG PREMIX BAG 600 MG/300 ML BAG IVPB SCH ×2 (09:46→13:35)
[2020-12-07] MEDS: MAGNESIUM HYDROX 2400MG/30ML ORAL SUSPENSION 30 ML CUP GT SCH (09:46)
[2020-12-07] MEDS: CARBAMIDE PEROXIDE 6.5% OTIC 15 ML BOTTLE AU SCH (10:40)
[2020-12-07] MEDS ORDERED: TIGECYCLINE 100 MG in DEXTROSE 5%-WATER - 100 ML IVPB ONE (12:00)
[2020-12-07] MEDS: ALBUTEROL SO4 0.083% IH SOL 2.5 MG/3 ML VIAL.NEB. NEB PRN (20:10)
[2020-12-07] MEDS: OCULAR LUBRICANT OPHTHALMIC OINTMENT 7 GM TUBE OU SCH (22:43)
[2020-12-07] MEDS: CHLORHEXIDINE GLUCONATE 4% CLEANSER FOR DECOLONIZATION TP SCH (22:43)
[2020-12-08] MEDS ORDERED: AZTREONAM 1 GM VIAL (RESTRICTED TO ID) ONE ×3 (01:43→17:27)
[2020-12-08] MEDS ORDERED: DEXTROSE 5%-WATER - 50 ML IVPB ONE ×3 (01:43→17:28)
[2020-12-08] MEDS: AZTREONAM 1 GM in DEXTROSE 5%-WATER - 50 ML IVPB SCH ×3 (01:49→17:30)
[2020-12-08] MEDS: ALBUTEROL SO4 0.083% IH SOL 2.5 MG/3 ML VIAL.NEB. NEB PRN ×4 (07:45→21:12)
[2020-12-08] MEDS: ACETYLCYSTEINE 20% 200MG/ML 4 ML VIAL *FOR ORAL / INH USE ONLY NEB SCH ×4 (07:45→21:12)
[2020-12-08] MEDS: LEVOTHYROXINE NA 100 MCG TABLET (FP) GT SCH (09:18)
[2020-12-08] MEDS: URSODIOL 300 MG CAPSULE PO SCH ×3 (09:18→22:31)
[2020-12-08] MEDS: FAMOTIDINE 20 MG/50 ML IVPB 20 MG/50 ML MG IVPB SCH ×2 (09:36→23:34)
[2020-12-08] MEDS ORDERED: PT OWN MED DRAWER 7, Y5N ONE (09:51)
[2020-12-08] MEDS: levETIRAcetam 500 MG/5 ML ORAL SOLUTION (UNIT-DOSE CUPS) GT SCH ×2 (09:54→22:31)
[2020-12-08] MEDS: MAGNESIUM HYDROX 2400MG/30ML ORAL SUSPENSION 30 ML CUP GT SCH (09:55)
[2020-12-08] MEDS: CHOLECALCIFEROL (VIT D SOLUTION) 400 UNIT/1 ML DROPS GT SCH (09:55)
[2020-12-08] MEDS: CARBAMIDE PEROXIDE 6.5% OTIC 15 ML BOTTLE AU SCH (11:00)
[2020-12-08] MEDS: TIGECYCLINE 50 MG in DEXTROSE 5%-WATER - 100 ML IVPB SCH ×2 (19:22→22:32)
[2020-12-08] MEDS: LINEZOLID 600 MG PREMIX BAG 600 MG in PREMIX 300 IVPB SCH (19:27)
[2020-12-08] MEDS: CHLORHEXIDINE GLUCONATE 4% CLEANSER FOR DECOLONIZATION TP SCH (22:31)
[2020-12-08] MEDS: OCULAR LUBRICANT OPHTHALMIC OINTMENT 7 GM TUBE OU SCH (22:32)
[2020-12-09] MEDS: HEPARIN NA (PORCINE) 5,000 UNITS/ML 1ML VIAL SQ SCH ×3 (00:34→23:03)
[2020-12-09] MEDS ORDERED: DEXTROSE 5%-WATER - 50 ML IVPB ONE ×3 (02:29→20:39)
[2020-12-09] MEDS ORDERED: AZTREONAM 1 GM VIAL (RESTRICTED TO ID) ONE ×3 (02:29→20:39)
[2020-12-09] MEDS: AZTREONAM 1 GM in DEXTROSE 5%-WATER - 50 ML IVPB SCH ×3 (02:40→20:43)
[2020-12-09] MEDS: LEVOTHYROXINE NA 100 MCG TABLET (FP) GT SCH (06:51)
[2020-12-09] MEDS: URSODIOL 300 MG CAPSULE PO SCH ×2 (06:51→13:25)
[2020-12-09 06:55] LABS: BASO % 0.4 % (0-2.0); EOS % 0.9 % (0-4.5); HEMATOCRIT 27.9 % (32.4-45.2); HEMOGLOBIN 9.7 GM/dL (10.7-15.3); LYMPH % 26.9 % (8-40); MCH 36.8 pg (25.7-33.7); MCHC 34.7 g/dl (32.0-36.0); MEAN CELL VOLUME 105.8 fl (80-96); MEAN PLT VOLUME 8.2 fl (7.5-11.1); MONO % 12.2 % (3.8-10.2); NEUT % 59.6 % (42.8-82.8); PLATELET COUNT 350 K/MM3 (134-434); RBC 2.63 M/mm3 (3.60-5.2); RDW 14.4 % (11.6-15.6); WHITE BLOOD COUNT 7.8 K/mm3 (4.0-10.0)
[2020-12-09 07:08] LABS: POTASSIUM 4.2 mmol/L (3.5-5.1)
[2020-12-09 07:24] LABS: ALBUMIN 2.5 g/dl (3.4-5.0); CALCIUM 8.5 mg/dL (8.5-10.1)
[2020-12-09 07:25] LABS: BILIRUBIN,TOTAL 0.2 mg/dL (0.2-1); BLOOD UREA NITROGEN 12.2 mg/dL (7-18)
[2020-12-09 07:27] LABS: TOT PROT 6.2 g/dl (6.4-8.2)
[2020-12-09 07:28] LABS: CREATININE 0.3 mg/dL (0.55-1.3); PHOSPHOROUS 3.2 mg/dL (2.5-4.9)
[2020-12-09] MEDS: ALBUTEROL SO4 0.083% IH SOL 2.5 MG/3 ML VIAL.NEB. NEB PRN ×4 (07:30→20:45)
[2020-12-09] MEDS: ACETYLCYSTEINE 20% 200MG/ML 4 ML VIAL *FOR ORAL / INH USE ONLY NEB SCH ×4 (07:30→20:45)
[2020-12-09] MEDS: MAGNESIUM HYDROX 2400MG/30ML ORAL SUSPENSION 30 ML CUP GT SCH (09:42)
[2020-12-09] MEDS: FAMOTIDINE 20 MG/50 ML IVPB 20 MG/50 ML MG IVPB SCH ×2 (09:43→23:02)
[2020-12-09] MEDS: CARBAMIDE PEROXIDE 6.5% OTIC 15 ML BOTTLE AU SCH (10:10)
[2020-12-09 11:09] LABS: ANISOCYTOSIS 1+; MACROCYTOSIS 0; PLATELET ESTIMATE NORMAL
[2020-12-09] MEDS: CHOLECALCIFEROL (VIT D SOLUTION) 400 UNIT/1 ML DROPS GT SCH (11:36)
[2020-12-09] MEDS: TIGECYCLINE 50 MG in DEXTROSE 5%-WATER - 100 ML IVPB SCH ×2 (11:39→23:03)
[2020-12-09] MEDS: levETIRAcetam 500 MG/5 ML ORAL SOLUTION (UNIT-DOSE CUPS) GT SCH (11:40)
[2020-12-09] MEDS ORDERED: FUROSEMIDE 40 MG/4 ML INJECTABLE VIAL IVPUSH ONE (12:32)
[2020-12-09] MEDS: OCULAR LUBRICANT OPHTHALMIC OINTMENT 7 GM TUBE OU SCH (23:02)
[2020-12-09] MEDS: CHLORHEXIDINE GLUCONATE 4% CLEANSER FOR DECOLONIZATION TP SCH (23:04)
[2020-12-10] MEDS: URSODIOL 300 MG CAPSULE PO SCH ×4 (00:05→21:45)
[2020-12-10] MEDS: levETIRAcetam 500 MG/5 ML ORAL SOLUTION (UNIT-DOSE CUPS) GT SCH ×3 (00:54→21:47)
[2020-12-10] MEDS: AZTREONAM 1 GM in DEXTROSE 5%-WATER - 50 ML IVPB SCH ×3 (03:33→18:43)
[2020-12-10] MEDS ORDERED: INSULIN (NOVOLOG) ASPART 100 UNITS/ML 10ML VIAL ONE (05:55)
[2020-12-10] MEDS: LEVOTHYROXINE NA 100 MCG TABLET (FP) GT SCH (07:01)
[2020-12-10 07:23] LABS: HEMATOCRIT 26.6 % (32.4-45.2); HEMOGLOBIN 9.1 GM/dL (10.7-15.3); MCH 35.9 pg (25.7-33.7); MCHC 34.1 g/dl (32.0-36.0); MEAN CELL VOLUME 105.3 fl (80-96); PLATELET COUNT 386 K/MM3 (134-434); RBC 2.53 M/mm3 (3.60-5.2); RDW 14.2 % (11.6-15.6); WHITE BLOOD COUNT 11.4 K/mm3 (4.0-10.0)
[2020-12-10 07:47] LABS: CALCIUM 8.3 mg/dL (8.5-10.1)
[2020-12-10 07:48] LABS: BLOOD UREA NITROGEN 12.4 mg/dL (7-18)
[2020-12-10 07:50] LABS: POTASSIUM 4.2 mmol/L (3.5-5.1)
[2020-12-10 07:51] LABS: CREATININE 0.3 mg/dL (0.55-1.3)
[2020-12-10] MEDS: ALBUTEROL SO4 0.083% IH SOL 2.5 MG/3 ML VIAL.NEB. NEB PRN ×2 (08:25→21:00)
[2020-12-10] MEDS: ACETYLCYSTEINE 20% 200MG/ML 4 ML VIAL *FOR ORAL / INH USE ONLY NEB SCH ×4 (08:25→21:00)
[2020-12-10] MEDS ORDERED: LACTATED RINGERS SOLUTION 1,000 ML/1,000 ML INFUS.BAG IV ONE (09:00)
[2020-12-10 09:06] LABS: MAGNESIUM 2.1 mg/dL (1.8-2.4)
[2020-12-10 09:10] LABS: PHOSPHOROUS 3.2 mg/dL (2.5-4.9)
[2020-12-10] MEDS ORDERED: SODIUM CHLORIDE 500 ML IV STA (09:34)
[2020-12-10] MEDS ORDERED: AZTREONAM 1 GM VIAL (RESTRICTED TO ID) ONE ×2 (10:11→18:37)
[2020-12-10] MEDS ORDERED: DEXTROSE 5%-WATER - 50 ML IVPB ONE ×2 (10:12→18:38)
[2020-12-10] MEDS ORDERED: PT OWN MED DRAWER 7, Y5N ONE ×4 (10:17→16:25)
[2020-12-10] MEDS: HEPARIN NA (PORCINE) 5,000 UNITS/ML 1ML VIAL SQ SCH ×2 (10:36→21:46)
[2020-12-10] MEDS: CHOLECALCIFEROL (VIT D SOLUTION) 400 UNIT/1 ML DROPS GT SCH (10:37)
[2020-12-10] MEDS: FAMOTIDINE 20 MG/50 ML IVPB 20 MG/50 ML MG IVPB SCH ×2 (10:50→21:47)
[2020-12-10] MEDS: CARBAMIDE PEROXIDE 6.5% OTIC 15 ML BOTTLE AU SCH (12:45)
[2020-12-10] MEDS: MAGNESIUM HYDROX 2400MG/30ML ORAL SUSPENSION 30 ML CUP GT SCH (12:46)
[2020-12-10] MEDS: TIGECYCLINE 50 MG in DEXTROSE 5%-WATER - 100 ML IVPB SCH ×2 (12:46→21:47)
[2020-12-10] MEDS ORDERED: ALBUTEROL SO4 0.083% IH SOL 2.5 MG/3 ML VIAL.NEB. NEB ONE (20:15)
[2020-12-10] MEDS: CHLORHEXIDINE GLUCONATE 4% CLEANSER FOR DECOLONIZATION TP SCH (21:47)
[2020-12-10] MEDS: OCULAR LUBRICANT OPHTHALMIC OINTMENT 7 GM TUBE OU SCH (21:49)
[2020-12-10] MEDS ORDERED: ALBUTEROL SO4 HFA INHALER IH PRN (21:57)
[2020-12-11] MEDS ORDERED: DEXTROSE 5%-WATER - 50 ML IVPB ONE ×3 (01:03→17:46)
[2020-12-11] MEDS ORDERED: AZTREONAM 1 GM VIAL (RESTRICTED TO ID) ONE ×3 (01:03→17:46)
[2020-12-11] MEDS: AZTREONAM 1 GM in DEXTROSE 5%-WATER - 50 ML IVPB SCH ×3 (01:20→17:46)
[2020-12-11] MEDS: URSODIOL 300 MG CAPSULE PO SCH ×3 (06:14→22:35)
[2020-12-11] MEDS: LEVOTHYROXINE NA 100 MCG TABLET (FP) GT SCH (06:14)
[2020-12-11 07:10] LABS: BASO % 0.7 % (0-2.0); EOS % 0.6 % (0-4.5); HEMATOCRIT 27.1 % (32.4-45.2); HEMOGLOBIN 9.3 GM/dL (10.7-15.3); LYMPH % 24.7 % (8-40); MCH 36.2 pg (25.7-33.7); MCHC 34.5 g/dl (32.0-36.0); MEAN CELL VOLUME 104.7 fl (80-96); MEAN PLT VOLUME 7.9 fl (7.5-11.1); MONO % 9.8 % (3.8-10.2); NEUT % 64.2 % (42.8-82.8); PLATELET COUNT 430 K/MM3 (134-434); RBC 2.58 M/mm3 (3.60-5.2); RDW 14.3 % (11.6-15.6); WHITE BLOOD COUNT 9.1 K/mm3 (4.0-10.0)
[2020-12-11 07:27] LABS: POTASSIUM 4.2 mmol/L (3.5-5.1)
[2020-12-11 07:34] LABS: CALCIUM 8.8 mg/dL (8.5-10.1)
[2020-12-11 07:35] LABS: ALBUMIN 2.5 g/dl (3.4-5.0); BLOOD UREA NITROGEN 14.6 mg/dL (7-18); MAGNESIUM 1.9 mg/dL (1.8-2.4)
[2020-12-11 07:37] LABS: BILIRUBIN,TOTAL 0.3 mg/dL (0.2-1); TOT PROT 6.2 g/dl (6.4-8.2)
[2020-12-11 07:38] LABS: CREATININE 0.3 mg/dL (0.55-1.3)
[2020-12-11] MEDS: ALBUTEROL SO4 0.083% IH SOL 2.5 MG/3 ML VIAL.NEB. NEB PRN (08:09)
[2020-12-11] MEDS: ACETYLCYSTEINE 20% 200MG/ML 4 ML VIAL *FOR ORAL / INH USE ONLY NEB SCH (08:09)
[2020-12-11] MEDS: MAGNESIUM HYDROX 2400MG/30ML ORAL SUSPENSION 30 ML CUP GT SCH (09:34)
[2020-12-11] MEDS: FAMOTIDINE 20 MG/50 ML IVPB 20 MG/50 ML MG IVPB SCH ×2 (09:34→22:26)
[2020-12-11] MEDS: AMINO ACIDS/PROTEIN HYDROLYS 30 ML LIQUID.PKT PO SCH (09:35)
[2020-12-11] MEDS: HEPARIN NA (PORCINE) 5,000 UNITS/ML 1ML VIAL SQ SCH ×2 (09:35→22:26)
[2020-12-11] MEDS: levETIRAcetam 500 MG/5 ML ORAL SOLUTION (UNIT-DOSE CUPS) GT SCH ×2 (09:36→22:34)
[2020-12-11] MEDS: TIGECYCLINE 50 MG in DEXTROSE 5%-WATER - 100 ML IVPB SCH ×2 (10:42→22:26)
[2020-12-11] MEDS: CHOLECALCIFEROL (VIT D SOLUTION) 400 UNIT/1 ML DROPS GT SCH (10:42)
[2020-12-11] MEDS: CARBAMIDE PEROXIDE 6.5% OTIC 15 ML BOTTLE AU SCH (10:43)
[2020-12-11] MEDS: CHLORHEXIDINE GLUCONATE 4% CLEANSER FOR DECOLONIZATION TP SCH (22:35)
[2020-12-11] MEDS: OCULAR LUBRICANT OPHTHALMIC OINTMENT 7 GM TUBE OU SCH (22:36)
[2020-12-12] MEDS ORDERED: AZTREONAM 1 GM VIAL (RESTRICTED TO ID) ONE ×3 (01:02→16:11)
[2020-12-12] MEDS ORDERED: DEXTROSE 5%-WATER - 50 ML IVPB ONE ×3 (01:02→16:12)
[2020-12-12] MEDS: AZTREONAM 1 GM in DEXTROSE 5%-WATER - 50 ML IVPB SCH ×3 (01:30→17:16)
[2020-12-12] MEDS: LEVOTHYROXINE NA 100 MCG TABLET (FP) GT SCH (06:52)
[2020-12-12] MEDS: URSODIOL 300 MG CAPSULE PO SCH ×3 (06:52→22:56)
[2020-12-12 06:55] LABS: BASO % 0.8 % (0-2.0); EOS % 0.6 % (0-4.5); HEMATOCRIT 29.6 % (32.4-45.2); HEMOGLOBIN 10.3 GM/dL (10.7-15.3); LYMPH % 18.3 % (8-40); MCH 36.2 pg (25.7-33.7); MCHC 34.8 g/dl (32.0-36.0); MEAN CELL VOLUME 104.1 fl (80-96); MEAN PLT VOLUME 7.7 fl (7.5-11.1); MONO % 6.2 % (3.8-10.2); NEUT % 74.1 % (42.8-82.8); PLATELET COUNT 498 K/MM3 (134-434); RBC 2.84 M/mm3 (3.60-5.2); RDW 14.5 % (11.6-15.6); WHITE BLOOD COUNT 13.2 K/mm3 (4.0-10.0)
[2020-12-12 07:05] LABS: POTASSIUM 4.3 mmol/L (3.5-5.1)
[2020-12-12 07:13] LABS: ALBUMIN 2.7 g/dl (3.4-5.0); CALCIUM 8.9 mg/dL (8.5-10.1); MAGNESIUM 2.1 mg/dL (1.8-2.4)
[2020-12-12 07:15] LABS: CREATININE 0.4 mg/dL (0.55-1.3)
[2020-12-12 07:17] LABS: BILIRUBIN,TOTAL 0.2 mg/dL (0.2-1); TOT PROT 6.5 g/dl (6.4-8.2)
[2020-12-12] MEDS: AMINO ACIDS/PROTEIN HYDROLYS 30 ML LIQUID.PKT PO SCH (07:51)
[2020-12-12] MEDS ORDERED: PT OWN MED DRAWER 7, Y5N ONE ×3 (09:12→21:08)
[2020-12-12] MEDS: CHOLECALCIFEROL (VIT D SOLUTION) 400 UNIT/1 ML DROPS GT SCH (09:14)
[2020-12-12] MEDS: levETIRAcetam 500 MG/5 ML ORAL SOLUTION (UNIT-DOSE CUPS) GT SCH ×2 (09:14→22:56)
[2020-12-12] MEDS: FAMOTIDINE 20 MG/50 ML IVPB 20 MG/50 ML MG IVPB SCH ×2 (09:16→22:56)
[2020-12-12] MEDS: HEPARIN NA (PORCINE) 5,000 UNITS/ML 1ML VIAL SQ SCH ×2 (09:17→22:56)
[2020-12-12] MEDS: TIGECYCLINE 50 MG in DEXTROSE 5%-WATER - 100 ML IVPB SCH ×2 (09:18→22:56)
[2020-12-12] MEDS: MAGNESIUM HYDROX 2400MG/30ML ORAL SUSPENSION 30 ML CUP GT SCH (09:19)
[2020-12-12] MEDS: CARBAMIDE PEROXIDE 6.5% OTIC 15 ML BOTTLE AU SCH (09:20)
[2020-12-12] MEDS: CHLORHEXIDINE GLUCONATE 4% CLEANSER FOR DECOLONIZATION TP SCH (22:56)
[2020-12-12] MEDS: OCULAR LUBRICANT OPHTHALMIC OINTMENT 7 GM TUBE OU SCH (22:56)
[2020-12-13] MEDS ORDERED: DEXTROSE 5%-WATER - 50 ML IVPB ONE ×3 (01:56→16:53)
[2020-12-13] MEDS ORDERED: AZTREONAM 1 GM VIAL (RESTRICTED TO ID) ONE ×3 (01:56→16:53)
[2020-12-13] MEDS: AZTREONAM 1 GM in DEXTROSE 5%-WATER - 50 ML IVPB SCH ×3 (02:00→17:08)
[2020-12-13] MEDS ORDERED: PT OWN MED DRAWER 7, Y5N ONE ×4 (06:39→22:07)
[2020-12-13] MEDS: URSODIOL 300 MG CAPSULE PO SCH ×3 (07:15→22:23)
[2020-12-13] MEDS: LEVOTHYROXINE NA 100 MCG TABLET (FP) GT SCH (07:15)
[2020-12-13 07:24] LABS: BASO % 0.5 % (0-2.0); EOS % 0.5 % (0-4.5); HEMATOCRIT 29.8 % (32.4-45.2); HEMOGLOBIN 10.1 GM/dL (10.7-15.3); LYMPH % 18.2 % (8-40); MCH 35.5 pg (25.7-33.7); MCHC 33.9 g/dl (32.0-36.0); MEAN CELL VOLUME 104.8 fl (80-96); MONO % 5.9 % (3.8-10.2); NEUT % 74.9 % (42.8-82.8); PLATELET COUNT 467 K/MM3 (134-434); RBC 2.85 M/mm3 (3.60-5.2); RDW 13.8 % (11.6-15.6); WHITE BLOOD COUNT 13.1 K/mm3 (4.0-10.0)
[2020-12-13] MEDS ORDERED: AMINO ACIDS/PROTEIN HYDROLYS 30 ML LIQUID.PKT GT SCH (07:43)
[2020-12-13 07:44] LABS: POTASSIUM 4.1 mmol/L (3.5-5.1)
[2020-12-13 07:52] LABS: ALBUMIN 2.6 g/dl (3.4-5.0)
[2020-12-13 07:53] LABS: BILIRUBIN,TOTAL 0.2 mg/dL (0.2-1); BLOOD UREA NITROGEN 15.6 mg/dL (7-18); TOT PROT 6.6 g/dl (6.4-8.2)
[2020-12-13 07:54] LABS: CALCIUM 8.7 mg/dL (8.5-10.1)
[2020-12-13 07:55] LABS: CREATININE 0.4 mg/dL (0.55-1.3); MAGNESIUM 2.2 mg/dL (1.8-2.4)
[2020-12-13] MEDS: TIGECYCLINE 50 MG in DEXTROSE 5%-WATER - 100 ML IVPB SCH (08:59)
[2020-12-13] MEDS: HEPARIN NA (PORCINE) 5,000 UNITS/ML 1ML VIAL SQ SCH ×2 (08:59→22:22)
[2020-12-13] MEDS: MAGNESIUM HYDROX 2400MG/30ML ORAL SUSPENSION 30 ML CUP GT SCH (08:59)
[2020-12-13] MEDS: levETIRAcetam 500 MG/5 ML ORAL SOLUTION (UNIT-DOSE CUPS) GT SCH ×2 (08:59→22:22)
[2020-12-13] MEDS: CARBAMIDE PEROXIDE 6.5% OTIC 15 ML BOTTLE AU SCH (09:00)
[2020-12-13] MEDS: CHOLECALCIFEROL (VIT D SOLUTION) 400 UNIT/1 ML DROPS GT SCH (09:00)
[2020-12-13] MEDS ORDERED: FAMOTIDINE 40 MG/5 ML ORAL SUSPENSION PEG SCH (10:00)
[2020-12-13] MEDS ORDERED: SODIUM CHLORIDE 500 ML IV STA (13:58)
[2020-12-13] MEDS: SODIUM CHLORIDE 1,000 ML IV SCH (16:36)
[2020-12-13] MEDS ORDERED: CHLORHEXIDINE GLUCONATE 4% CLEANSER FOR DECOLONIZATION TP SCH (22:00)
[2020-12-13] MEDS: FAMOTIDINE 40 MG/5 ML ORAL SUSPENSION PEG SCH (22:24)
[2020-12-13] MEDS: TIGECYCLINE 50 MG in DEXTROSE 5%-WATER 100 ML IVPB SCH (22:26)
[2020-12-13] MEDS: OCULAR LUBRICANT OPHTHALMIC OINTMENT 7 GM TUBE OU SCH (22:26)
[2020-12-14] MEDS ORDERED: AZTREONAM 1 GM VIAL (RESTRICTED TO ID) ONE ×3 (02:14→17:12)
[2020-12-14] MEDS ORDERED: DEXTROSE 5%-WATER - 50 ML IVPB ONE ×3 (02:14→17:12)
[2020-12-14] MEDS: AZTREONAM 1 GM in DEXTROSE 5%-WATER - 50 ML IVPB SCH ×3 (02:33→17:10)
[2020-12-14] MEDS: URSODIOL 300 MG CAPSULE PO SCH ×3 (06:10→23:00)
[2020-12-14] MEDS: LEVOTHYROXINE NA 100 MCG TABLET (FP) GT SCH (06:10)
[2020-12-14 10:22] LABS: BASO % 0.8 % (0-2.0); EOS % 1.4 % (0-4.5); HEMATOCRIT 26.5 % (32.4-45.2); LYMPH % 24.5 % (8-40); MCH 35.8 pg (25.7-33.7); MCHC 33.9 g/dl (32.0-36.0); MEAN CELL VOLUME 105.5 fl (80-96); MEAN PLT VOLUME 7.9 fl (7.5-11.1); MONO % 8.1 % (3.8-10.2); NEUT % 65.2 % (42.8-82.8); PLATELET COUNT 370 K/MM3 (134-434); RBC 2.51 M/mm3 (3.60-5.2); RDW 14.5 % (11.6-15.6)
[2020-12-14] MEDS: HEPARIN NA (PORCINE) 5,000 UNITS/ML 1ML VIAL SQ SCH ×2 (10:46→22:59)
[2020-12-14] MEDS: AMINO ACIDS/PROTEIN HYDROLYS 30 ML LIQUID.PKT GT SCH (10:46)
[2020-12-14] MEDS: CHOLECALCIFEROL (VIT D SOLUTION) 400 UNIT/1 ML DROPS GT SCH (10:47)
[2020-12-14] MEDS: MAGNESIUM HYDROX 2400MG/30ML ORAL SUSPENSION 30 ML CUP GT SCH (10:47)
[2020-12-14] MEDS: levETIRAcetam 500 MG/5 ML ORAL SOLUTION (UNIT-DOSE CUPS) GT SCH ×2 (10:47→22:58)
[2020-12-14] MEDS: FAMOTIDINE 40 MG/5 ML ORAL SUSPENSION PEG SCH ×2 (10:47→23:02)
[2020-12-14 10:49] LABS: POTASSIUM 4.2 mmol/L (3.5-5.1)
[2020-12-14 11:00] LABS: ALBUMIN 2.4 g/dl (3.4-5.0)
[2020-12-14 11:01] LABS: BLOOD UREA NITROGEN 15.7 mg/dL (7-18)
[2020-12-14 11:03] LABS: CALCIUM 8.4 mg/dL (8.5-10.1)
[2020-12-14 11:04] LABS: CREATININE 0.3 mg/dL (0.55-1.3)
[2020-12-14 11:05] LABS: BILIRUBIN,TOTAL 0.3 mg/dL (0.2-1); TOT PROT 5.9 g/dl (6.4-8.2)
[2020-12-14 12:05] LABS: ANISOCYTOSIS 2+; MACROCYTOSIS 2+; PLATELET ESTIMATE NORMAL
[2020-12-14] MEDS ORDERED: PT OWN MED DRAWER 7, Y5N ONE ×4 (12:30→22:45)
[2020-12-14] MEDS: TIGECYCLINE 50 MG in DEXTROSE 5%-WATER - 100 ML IVPB SCH (12:50)
[2020-12-14] MEDS: CARBAMIDE PEROXIDE 6.5% OTIC 15 ML BOTTLE AU SCH (12:54)
[2020-12-14] MEDS: TIGECYCLINE 50 MG in DEXTROSE 5%-WATER 100 ML IVPB SCH ×2 (12:54→23:02)
[2020-12-14] MEDS: SODIUM CHLORIDE 1,000 ML IV SCH (17:09)
[2020-12-14] MEDS: OCULAR LUBRICANT OPHTHALMIC OINTMENT 7 GM TUBE OU SCH (23:02)
[2020-12-15] MEDS ORDERED: AZTREONAM 1 GM VIAL (RESTRICTED TO ID) ONE ×3 (02:58→17:47)
[2020-12-15] MEDS ORDERED: DEXTROSE 5%-WATER - 50 ML IVPB ONE ×3 (02:59→17:47)
[2020-12-15] MEDS: AZTREONAM 1 GM in DEXTROSE 5%-WATER - 50 ML IVPB SCH ×3 (03:01→18:10)
[2020-12-15] MEDS ORDERED: PT OWN MED DRAWER 7, Y5N ONE ×4 (05:47→22:27)
[2020-12-15] MEDS: LEVOTHYROXINE NA 100 MCG TABLET (FP) GT SCH (06:11)
[2020-12-15] MEDS: URSODIOL 300 MG CAPSULE PO SCH ×3 (06:11→22:52)
[2020-12-15] MEDS: levETIRAcetam 500 MG/5 ML ORAL SOLUTION (UNIT-DOSE CUPS) GT SCH ×2 (09:07→22:51)
[2020-12-15] MEDS: HEPARIN NA (PORCINE) 5,000 UNITS/ML 1ML VIAL SQ SCH ×2 (09:07→22:52)
[2020-12-15] MEDS: CHOLECALCIFEROL (VIT D SOLUTION) 400 UNIT/1 ML DROPS GT SCH (09:07)
[2020-12-15] MEDS: AMINO ACIDS/PROTEIN HYDROLYS 30 ML LIQUID.PKT GT SCH (09:07)
[2020-12-15] MEDS: MAGNESIUM HYDROX 2400MG/30ML ORAL SUSPENSION 30 ML CUP GT SCH (09:07)
[2020-12-15] MEDS: TIGECYCLINE 50 MG in DEXTROSE 5%-WATER 100 ML IVPB SCH ×2 (09:07→22:49)
[2020-12-15] MEDS: CARBAMIDE PEROXIDE 6.5% OTIC 15 ML BOTTLE AU SCH (09:08)
[2020-12-15] MEDS: FAMOTIDINE 40 MG/5 ML ORAL SUSPENSION PEG SCH ×2 (09:08→22:53)
[2020-12-15 09:51] LABS: BASO % 0.4 % (0-2.0); EOS % 0.8 % (0-4.5); HEMATOCRIT 25.6 % (32.4-45.2); HEMOGLOBIN 8.8 GM/dL (10.7-15.3); LYMPH % 18.9 % (8-40); MCH 36.2 pg (25.7-33.7); MCHC 34.2 g/dl (32.0-36.0); MEAN CELL VOLUME 105.7 fl (80-96); MEAN PLT VOLUME 7.9 fl (7.5-11.1); MONO % 5.3 % (3.8-10.2); NEUT % 74.6 % (42.8-82.8); PLATELET COUNT 347 K/MM3 (134-434); RBC 2.42 M/mm3 (3.60-5.2); RDW 14.6 % (11.6-15.6); WHITE BLOOD COUNT 9.9 K/mm3 (4.0-10.0)
[2020-12-15 09:54] LABS: POTASSIUM 3.8 mmol/L (3.5-5.1)
[2020-12-15 10:06] LABS: CALCIUM 8.3 mg/dL (8.5-10.1)
[2020-12-15 10:07] LABS: ALBUMIN 2.3 g/dl (3.4-5.0); BLOOD UREA NITROGEN 12.5 mg/dL (7-18); MAGNESIUM 1.7 mg/dL (1.8-2.4)
[2020-12-15 10:10] LABS: CREATININE 0.2 mg/dL (0.55-1.3)
[2020-12-15 10:11] LABS: BILIRUBIN,TOTAL 0.3 mg/dL (0.2-1); TOT PROT 5.5 g/dl (6.4-8.2)
[2020-12-15] MEDS ORDERED: MAGNESIUM OXIDE 400 MG TABLET (FP) GT ONE (11:00)
[2020-12-15] MEDS ORDERED: ALBUTEROL SO4 0.083% IH SOL 2.5 MG/3 ML VIAL.NEB. NEB ONE (21:33)
[2020-12-15] MEDS ORDERED: SODIUM CHLORIDE FOR INHALATION 3 ML VIAL.NEB IH PRN (21:34)
[2020-12-15] MEDS: OCULAR LUBRICANT OPHTHALMIC OINTMENT 7 GM TUBE OU SCH (22:53)
[2020-12-16] MEDS ORDERED: AZTREONAM 1 GM VIAL (RESTRICTED TO ID) ONE ×3 (02:59→17:27)
[2020-12-16] MEDS ORDERED: DEXTROSE 5%-WATER - 50 ML IVPB ONE ×3 (02:59→17:27)
[2020-12-16] MEDS: AZTREONAM 1 GM in DEXTROSE 5%-WATER - 50 ML IVPB SCH ×3 (03:01→17:29)
[2020-12-16] MEDS: URSODIOL 300 MG CAPSULE PO SCH ×3 (06:30→22:43)
[2020-12-16] MEDS: LEVOTHYROXINE NA 100 MCG TABLET (FP) GT SCH (06:30)
[2020-12-16 08:51] LABS: BASO % 0.7 % (0-2.0); EOS % 1.5 % (0-4.5); HEMATOCRIT 27.3 % (32.4-45.2); HEMOGLOBIN 9.6 GM/dL (10.7-15.3); LYMPH % 25.3 % (8-40); MCH 36.5 pg (25.7-33.7); MCHC 35.2 g/dl (32.0-36.0); MEAN CELL VOLUME 103.8 fl (80-96); MEAN PLT VOLUME 7.6 fl (7.5-11.1); MONO % 8.3 % (3.8-10.2); NEUT % 64.2 % (42.8-82.8); PLATELET COUNT 366 K/MM3 (134-434); RBC 2.63 M/mm3 (3.60-5.2); RDW 14.1 % (11.6-15.6); WHITE BLOOD COUNT 6.7 K/mm3 (4.0-10.0)
[2020-12-16] MEDS: AMINO ACIDS/PROTEIN HYDROLYS 30 ML LIQUID.PKT GT SCH (09:10)
[2020-12-16] MEDS: HEPARIN NA (PORCINE) 5,000 UNITS/ML 1ML VIAL SQ SCH ×2 (09:10→22:44)
[2020-12-16] MEDS: levETIRAcetam 500 MG/5 ML ORAL SOLUTION (UNIT-DOSE CUPS) GT SCH ×2 (09:10→22:45)
[2020-12-16] MEDS: MAGNESIUM HYDROX 2400MG/30ML ORAL SUSPENSION 30 ML CUP GT SCH (09:10)
[2020-12-16] MEDS: TIGECYCLINE 50 MG in DEXTROSE 5%-WATER 100 ML IVPB SCH ×2 (09:10→22:49)
[2020-12-16] MEDS: CARBAMIDE PEROXIDE 6.5% OTIC 15 ML BOTTLE AU SCH (09:11)
[2020-12-16] MEDS: CHOLECALCIFEROL (VIT D SOLUTION) 400 UNIT/1 ML DROPS GT SCH (09:11)
[2020-12-16] MEDS: FAMOTIDINE 40 MG/5 ML ORAL SUSPENSION PEG SCH ×2 (09:11→22:43)
[2020-12-16 09:17] LABS: POTASSIUM 4.1 mmol/L (3.5-5.1)
[2020-12-16 09:20] LABS: CALCIUM 8.3 mg/dL (8.5-10.1)
[2020-12-16 09:21] LABS: ALBUMIN 2.3 g/dl (3.4-5.0); BLOOD UREA NITROGEN 15.2 mg/dL (7-18); MAGNESIUM 2.1 mg/dL (1.8-2.4)
[2020-12-16 09:24] LABS: CREATININE 0.3 mg/dL (0.55-1.3)
[2020-12-16 09:25] LABS: BILIRUBIN,TOTAL 0.2 mg/dL (0.2-1); TOT PROT 5.9 g/dl (6.4-8.2)
[2020-12-16] MEDS: SCOPOLAMINE HYDROBROMIDE 1 PATCH PATCH.TD72 TD SCH (10:15)
[2020-12-16] MEDS: ALBUTEROL SO4 2.5/IPRATROPIUM 0.5 INH SOL 3 ML VIAL.NEB. NEB PRN ×2 (18:05→20:30)
[2020-12-16] MEDS ORDERED: PT OWN MED DRAWER 7, Y5N ONE ×2 (22:34→22:48)
[2020-12-16] MEDS: OCULAR LUBRICANT OPHTHALMIC OINTMENT 7 GM TUBE OU SCH (22:46)
[2020-12-17] MEDS ORDERED: AZTREONAM 1 GM VIAL (RESTRICTED TO ID) ONE ×3 (02:20→17:23)
[2020-12-17] MEDS ORDERED: DEXTROSE 5%-WATER - 50 ML IVPB ONE ×3 (02:21→17:23)
[2020-12-17] MEDS: AZTREONAM 1 GM in DEXTROSE 5%-WATER - 50 ML IVPB SCH ×3 (02:31→17:24)
[2020-12-17] MEDS: ALBUTEROL SO4 2.5/IPRATROPIUM 0.5 INH SOL 3 ML VIAL.NEB. NEB PRN ×2 (03:35→08:04)
[2020-12-17] MEDS: URSODIOL 300 MG CAPSULE PO SCH ×3 (05:55→22:13)
[2020-12-17] MEDS: LEVOTHYROXINE NA 100 MCG TABLET (FP) GT SCH (06:00)
[2020-12-17 09:48] LABS: BASO % 0.9 % (0-2.0); EOS % 0.6 % (0-4.5); HEMATOCRIT 28.2 % (32.4-45.2); HEMOGLOBIN 9.7 GM/dL (10.7-15.3); LYMPH % 23.1 % (8-40); MCH 36.1 pg (25.7-33.7); MCHC 34.5 g/dl (32.0-36.0); MEAN CELL VOLUME 104.8 fl (80-96); MEAN PLT VOLUME 7.9 fl (7.5-11.1); MONO % 9.3 % (3.8-10.2); NEUT % 66.1 % (42.8-82.8); PLATELET COUNT 346 K/MM3 (134-434); WHITE BLOOD COUNT 7.3 K/mm3 (4.0-10.0)
[2020-12-17] MEDS ORDERED: PT OWN MED DRAWER 7, Y5N ONE ×2 (10:08→21:03)
[2020-12-17] MEDS: TIGECYCLINE 50 MG in DEXTROSE 5%-WATER 100 ML IVPB SCH ×2 (10:11→22:35)
[2020-12-17] MEDS: levETIRAcetam 500 MG/5 ML ORAL SOLUTION (UNIT-DOSE CUPS) GT SCH ×2 (10:14→22:13)
[2020-12-17] MEDS: AMINO ACIDS/PROTEIN HYDROLYS 30 ML LIQUID.PKT GT SCH (10:14)
[2020-12-17] MEDS: MAGNESIUM HYDROX 2400MG/30ML ORAL SUSPENSION 30 ML CUP GT SCH (10:14)
[2020-12-17] MEDS: HEPARIN NA (PORCINE) 5,000 UNITS/ML 1ML VIAL SQ SCH ×2 (10:15→22:13)
[2020-12-17] MEDS: CHOLECALCIFEROL (VIT D SOLUTION) 400 UNIT/1 ML DROPS GT SCH (10:15)
[2020-12-17] MEDS: FAMOTIDINE 40 MG/5 ML ORAL SUSPENSION PEG SCH ×2 (10:16→22:14)
[2020-12-17] MEDS: CARBAMIDE PEROXIDE 6.5% OTIC 15 ML BOTTLE AU SCH (10:18)
[2020-12-17 10:24] LABS: POTASSIUM 4.2 mmol/L (3.5-5.1)
[2020-12-17 10:28] LABS: ALBUMIN 2.4 g/dl (3.4-5.0); BLOOD UREA NITROGEN 15.5 mg/dL (7-18)
[2020-12-17 10:29] LABS: CALCIUM 8.3 mg/dL (8.5-10.1)
[2020-12-17 10:31] LABS: CREATININE 0.3 mg/dL (0.55-1.3)
[2020-12-17 10:33] LABS: BILIRUBIN,TOTAL 0.8 mg/dL (0.2-1); TOT PROT 5.9 g/dl (6.4-8.2)
[2020-12-17] MEDS: OCULAR LUBRICANT OPHTHALMIC OINTMENT 7 GM TUBE OU SCH (22:14)
[2020-12-18] MEDS ORDERED: AZTREONAM 1 GM VIAL (RESTRICTED TO ID) ONE ×3 (01:22→18:35)
[2020-12-18] MEDS ORDERED: DEXTROSE 5%-WATER - 50 ML IVPB ONE ×3 (01:22→18:35)
[2020-12-18] MEDS: AZTREONAM 1 GM in DEXTROSE 5%-WATER - 50 ML IVPB SCH ×3 (01:25→18:37)
[2020-12-18] MEDS: URSODIOL 300 MG CAPSULE PO SCH ×3 (06:18→23:06)
[2020-12-18] MEDS: LEVOTHYROXINE NA 100 MCG TABLET (FP) GT SCH (06:18)
[2020-12-18 09:04] LABS: BASO % 0.9 % (0-2.0); HEMATOCRIT 31.1 % (32.4-45.2); HEMOGLOBIN 10.6 GM/dL (10.7-15.3); LYMPH % 34.2 % (8-40); MCH 35.8 pg (25.7-33.7); MCHC 33.9 g/dl (32.0-36.0); MEAN CELL VOLUME 105.5 fl (80-96); MEAN PLT VOLUME 8.4 fl (7.5-11.1); MONO % 9.4 % (3.8-10.2); NEUT % 54.5 % (42.8-82.8); PLATELET COUNT 345 K/MM3 (134-434); RBC 2.95 M/mm3 (3.60-5.2); RDW 14.3 % (11.6-15.6); WHITE BLOOD COUNT 6.2 K/mm3 (4.0-10.0)
[2020-12-18 09:30] LABS: POTASSIUM 4.3 mmol/L (3.5-5.1)
[2020-12-18 09:34] LABS: ALBUMIN 2.4 g/dl (3.4-5.0); BLOOD UREA NITROGEN 17.4 mg/dL (7-18); CALCIUM 8.7 mg/dL (8.5-10.1)
[2020-12-18 09:35] LABS: MAGNESIUM 1.9 mg/dL (1.8-2.4)
[2020-12-18 09:38] LABS: CREATININE 0.3 mg/dL (0.55-1.3)
[2020-12-18 09:39] LABS: BILIRUBIN,TOTAL 0.4 mg/dL (0.2-1)
[2020-12-18] MEDS: AMINO ACIDS/PROTEIN HYDROLYS 30 ML LIQUID.PKT GT SCH (09:43)
[2020-12-18] MEDS: levETIRAcetam 500 MG/5 ML ORAL SOLUTION (UNIT-DOSE CUPS) GT SCH ×2 (09:44→23:06)
[2020-12-18] MEDS: HEPARIN NA (PORCINE) 5,000 UNITS/ML 1ML VIAL SQ SCH ×2 (09:44→22:53)
[2020-12-18] MEDS: CARBAMIDE PEROXIDE 6.5% OTIC 15 ML BOTTLE AU SCH (09:47)
[2020-12-18] MEDS: CHOLECALCIFEROL (VIT D SOLUTION) 400 UNIT/1 ML DROPS GT SCH (09:49)
[2020-12-18] MEDS: FAMOTIDINE 40 MG/5 ML ORAL SUSPENSION PEG SCH ×2 (09:49→23:06)
[2020-12-18] MEDS: MAGNESIUM HYDROX 2400MG/30ML ORAL SUSPENSION 30 ML CUP GT SCH (09:49)
[2020-12-18] MEDS: TIGECYCLINE 50 MG in DEXTROSE 5%-WATER 100 ML IVPB SCH ×2 (10:43→22:57)
[2020-12-18] MEDS: ALBUTEROL SO4 2.5/IPRATROPIUM 0.5 INH SOL 3 ML VIAL.NEB. NEB PRN (22:10)
[2020-12-18] MEDS ORDERED: PT OWN MED DRAWER 7, Y5N ONE (22:50)
[2020-12-18] MEDS: OCULAR LUBRICANT OPHTHALMIC OINTMENT 7 GM TUBE OU SCH (23:29)
[2020-12-19] MEDS ORDERED: AZTREONAM 1 GM VIAL (RESTRICTED TO ID) ONE ×3 (02:39→19:20)
[2020-12-19] MEDS ORDERED: DEXTROSE 5%-WATER - 50 ML IVPB ONE ×3 (02:40→19:20)
[2020-12-19] MEDS: AZTREONAM 1 GM in DEXTROSE 5%-WATER - 50 ML IVPB SCH ×3 (02:49→19:29)
[2020-12-19] MEDS ORDERED: PT OWN MED DRAWER 7, Y5N ONE ×3 (06:51→21:31)
[2020-12-19] MEDS: LEVOTHYROXINE NA 100 MCG TABLET (FP) GT SCH (07:09)
[2020-12-19] MEDS: URSODIOL 300 MG CAPSULE PO SCH ×3 (07:09→21:54)
[2020-12-19 08:56] LABS: BASO % 0.7 % (0-2.0); EOS % 0.8 % (0-4.5); HEMATOCRIT 31.2 % (32.4-45.2); HEMOGLOBIN 10.8 GM/dL (10.7-15.3); LYMPH % 28.6 % (8-40); MCH 36.3 pg (25.7-33.7); MCHC 34.7 g/dl (32.0-36.0); MEAN CELL VOLUME 104.5 fl (80-96); MEAN PLT VOLUME 8.5 fl (7.5-11.1); MONO % 7.7 % (3.8-10.2); NEUT % 62.2 % (42.8-82.8); PLATELET COUNT 362 K/MM3 (134-434); RBC 2.99 M/mm3 (3.60-5.2); RDW 13.8 % (11.6-15.6); WHITE BLOOD COUNT 7.7 K/mm3 (4.0-10.0)
[2020-12-19 08:59] LABS: POTASSIUM 4.5 mmol/L (3.5-5.1)
[2020-12-19 09:11] LABS: ALBUMIN 2.4 g/dl (3.4-5.0); CALCIUM 8.6 mg/dL (8.5-10.1)
[2020-12-19 09:12] LABS: BLOOD UREA NITROGEN 17.5 mg/dL (7-18); MAGNESIUM 1.9 mg/dL (1.8-2.4)
[2020-12-19 09:15] LABS: CREATININE 0.3 mg/dL (0.55-1.3)
[2020-12-19 09:16] LABS: BILIRUBIN,TOTAL 0.4 mg/dL (0.2-1); TOT PROT 6.1 g/dl (6.4-8.2)
[2020-12-19] MEDS: levETIRAcetam 500 MG/5 ML ORAL SOLUTION (UNIT-DOSE CUPS) GT SCH ×2 (10:04→21:53)
[2020-12-19] MEDS: HEPARIN NA (PORCINE) 5,000 UNITS/ML 1ML VIAL SQ SCH ×2 (10:15→21:54)
[2020-12-19] MEDS: CARBAMIDE PEROXIDE 6.5% OTIC 15 ML BOTTLE AU SCH (10:16)
[2020-12-19] MEDS: CHOLECALCIFEROL (VIT D SOLUTION) 400 UNIT/1 ML DROPS GT SCH (10:16)
[2020-12-19] MEDS: MAGNESIUM HYDROX 2400MG/30ML ORAL SUSPENSION 30 ML CUP GT SCH (10:16)
[2020-12-19] MEDS: TIGECYCLINE 50 MG in DEXTROSE 5%-WATER 100 ML IVPB SCH ×2 (10:16→21:54)
[2020-12-19] MEDS: AMINO ACIDS/PROTEIN HYDROLYS 30 ML LIQUID.PKT GT SCH (10:16)
[2020-12-19] MEDS: FAMOTIDINE 40 MG/5 ML ORAL SUSPENSION PEG SCH ×2 (10:16→21:54)
[2020-12-19] MEDS: SCOPOLAMINE HYDROBROMIDE 1 PATCH PATCH.TD72 TD SCH (10:21)
[2020-12-19] MEDS: OCULAR LUBRICANT OPHTHALMIC OINTMENT 7 GM TUBE OU SCH (21:55)
[2020-12-20] MEDS ORDERED: AZTREONAM 1 GM VIAL (RESTRICTED TO ID) ONE ×2 (02:02→12:28)
[2020-12-20] MEDS ORDERED: DEXTROSE 5%-WATER - 50 ML IVPB ONE ×2 (02:02→12:28)
[2020-12-20] MEDS: AZTREONAM 1 GM in DEXTROSE 5%-WATER - 50 ML IVPB SCH ×2 (02:10→12:41)
[2020-12-20] MEDS: URSODIOL 300 MG CAPSULE PO SCH ×3 (06:14→22:05)
[2020-12-20] MEDS: LEVOTHYROXINE NA 100 MCG TABLET (FP) GT SCH (06:15)
[2020-12-20 09:30] LABS: BASO % 0.9 % (0-2.0); HEMATOCRIT 31.9 % (32.4-45.2); HEMOGLOBIN 10.8 GM/dL (10.7-15.3); LYMPH % 32.8 % (8-40); MCH 35.6 pg (25.7-33.7); MEAN CELL VOLUME 104.9 fl (80-96); MEAN PLT VOLUME 8.3 fl (7.5-11.1); MONO % 10.5 % (3.8-10.2); NEUT % 54.8 % (42.8-82.8); PLATELET COUNT 359 K/MM3 (134-434); RBC 3.04 M/mm3 (3.60-5.2); RDW 13.7 % (11.6-15.6); WHITE BLOOD COUNT 5.4 K/mm3 (4.0-10.0)
[2020-12-20 09:48] LABS: POTASSIUM 4.6 mmol/L (3.5-5.1)
[2020-12-20 10:04] LABS: ALBUMIN 2.4 g/dl (3.4-5.0); CALCIUM 8.9 mg/dL (8.5-10.1)
[2020-12-20 10:05] LABS: BLOOD UREA NITROGEN 22.8 mg/dL (7-18); MAGNESIUM 2.2 mg/dL (1.8-2.4)
[2020-12-20 10:09] LABS: BILIRUBIN,TOTAL 0.7 mg/dL (0.2-1); CREATININE 0.3 mg/dL (0.55-1.3)
[2020-12-20 10:10] LABS: TOT PROT 6.2 g/dl (6.4-8.2)
[2020-12-20] MEDS ORDERED: PT OWN MED DRAWER 7, Y5N ONE ×3 (12:28→22:01)
[2020-12-20] MEDS: CARBAMIDE PEROXIDE 6.5% OTIC 15 ML BOTTLE AU SCH (12:41)
[2020-12-20] MEDS: AMINO ACIDS/PROTEIN HYDROLYS 30 ML LIQUID.PKT GT SCH (12:41)
[2020-12-20] MEDS: HEPARIN NA (PORCINE) 5,000 UNITS/ML 1ML VIAL SQ SCH ×2 (12:42→22:05)
[2020-12-20] MEDS: CHOLECALCIFEROL (VIT D SOLUTION) 400 UNIT/1 ML DROPS GT SCH (12:44)
[2020-12-20] MEDS: levETIRAcetam 500 MG/5 ML ORAL SOLUTION (UNIT-DOSE CUPS) GT SCH ×2 (12:45→22:05)
[2020-12-20] MEDS: MAGNESIUM HYDROX 2400MG/30ML ORAL SUSPENSION 30 ML CUP GT SCH (12:45)
[2020-12-20] MEDS: FAMOTIDINE 40 MG/5 ML ORAL SUSPENSION PEG SCH ×2 (12:45→22:05)
[2020-12-20] MEDS: TIGECYCLINE 50 MG in DEXTROSE 5%-WATER 100 ML IVPB SCH (12:49)
[2020-12-20] MEDS ORDERED: SODIUM CHLORIDE 0.9% 500 ML INFUS.BAG IV ONE (21:51)
[2020-12-20] MEDS: OCULAR LUBRICANT OPHTHALMIC OINTMENT 7 GM TUBE OU SCH (22:06)
[2020-12-21] MEDS: URSODIOL 300 MG CAPSULE PO SCH ×3 (05:50→21:06)
[2020-12-21] MEDS: LEVOTHYROXINE NA 100 MCG TABLET (FP) GT SCH (06:28)
[2020-12-21] MEDS ORDERED: PT OWN MED DRAWER 7, Y5N ONE ×3 (09:12→20:58)
[2020-12-21] MEDS: AMINO ACIDS/PROTEIN HYDROLYS 30 ML LIQUID.PKT GT SCH (09:14)
[2020-12-21] MEDS: MAGNESIUM HYDROX 2400MG/30ML ORAL SUSPENSION 30 ML CUP GT SCH (09:14)
[2020-12-21] MEDS: levETIRAcetam 500 MG/5 ML ORAL SOLUTION (UNIT-DOSE CUPS) GT SCH ×2 (09:14→21:07)
[2020-12-21] MEDS: HEPARIN NA (PORCINE) 5,000 UNITS/ML 1ML VIAL SQ SCH ×2 (09:14→21:06)
[2020-12-21] MEDS: CHOLECALCIFEROL (VIT D SOLUTION) 400 UNIT/1 ML DROPS GT SCH (09:15)
[2020-12-21] MEDS: CARBAMIDE PEROXIDE 6.5% OTIC 15 ML BOTTLE AU SCH (09:15)
[2020-12-21] MEDS: FAMOTIDINE 40 MG/5 ML ORAL SUSPENSION PEG SCH ×2 (09:16→21:07)
[2020-12-21] MEDS: OCULAR LUBRICANT OPHTHALMIC OINTMENT 7 GM TUBE OU SCH (21:08)
[2020-12-22] MEDS: URSODIOL 300 MG CAPSULE PO SCH ×3 (06:25→22:58)
[2020-12-22] MEDS: LEVOTHYROXINE NA 100 MCG TABLET (FP) GT SCH (06:25)
[2020-12-22] MEDS: AMINO ACIDS/PROTEIN HYDROLYS 30 ML LIQUID.PKT GT SCH (08:28)
[2020-12-22] MEDS ORDERED: PT OWN MED DRAWER 7, Y5N ONE ×2 (09:28→22:33)
[2020-12-22] MEDS: HEPARIN NA (PORCINE) 5,000 UNITS/ML 1ML VIAL SQ SCH ×2 (09:31→22:57)
[2020-12-22] MEDS: SCOPOLAMINE HYDROBROMIDE 1 PATCH PATCH.TD72 TD SCH (09:31)
[2020-12-22] MEDS: CARBAMIDE PEROXIDE 6.5% OTIC 15 ML BOTTLE AU SCH (09:31)
[2020-12-22] MEDS: FAMOTIDINE 40 MG/5 ML ORAL SUSPENSION PEG SCH ×2 (09:31→22:58)
[2020-12-22] MEDS: MAGNESIUM HYDROX 2400MG/30ML ORAL SUSPENSION 30 ML CUP GT SCH (09:31)
[2020-12-22] MEDS: levETIRAcetam 500 MG/5 ML ORAL SOLUTION (UNIT-DOSE CUPS) GT SCH ×2 (09:31→22:57)
[2020-12-22] MEDS: CHOLECALCIFEROL (VIT D SOLUTION) 400 UNIT/1 ML DROPS GT SCH (09:31)
[2020-12-22 09:40] LABS: BASO % 0.7 % (0-2.0); EOS % 1.1 % (0-4.5); HEMATOCRIT 31.7 % (32.4-45.2); HEMOGLOBIN 10.9 GM/dL (10.7-15.3); LYMPH % 31.6 % (8-40); MCH 35.9 pg (25.7-33.7); MCHC 34.3 g/dl (32.0-36.0); MEAN CELL VOLUME 104.7 fl (80-96); MEAN PLT VOLUME 8.7 fl (7.5-11.1); MONO % 9.1 % (3.8-10.2); NEUT % 57.5 % (42.8-82.8); PLATELET COUNT 361 K/MM3 (134-434); RBC 3.03 M/mm3 (3.60-5.2); RDW 13.6 % (11.6-15.6); WHITE BLOOD COUNT 5.6 K/mm3 (4.0-10.0)
[2020-12-22 09:57] LABS: POTASSIUM 4.1 mmol/L (3.5-5.1)
[2020-12-22 09:59] LABS: CALCIUM 8.5 mg/dL (8.5-10.1)
[2020-12-22 10:00] LABS: ALBUMIN 2.4 g/dl (3.4-5.0); BLOOD UREA NITROGEN 13.5 mg/dL (7-18)
[2020-12-22 10:02] LABS: CREATININE 0.3 mg/dL (0.55-1.3); MAGNESIUM 1.8 mg/dL (1.8-2.4)
[2020-12-22 10:04] LABS: BILIRUBIN,TOTAL 0.2 mg/dL (0.2-1); TOT PROT 6.2 g/dl (6.4-8.2)
[2020-12-22] MEDS ORDERED: ONDANSETRON 4 MG/2 ML VIAL IVPUSH PRN (13:08)
[2020-12-22] MEDS ORDERED: ACETAMINOPHEN 1000 MG/100 ML VIAL (NON FORMULARY) IVPB ONE (13:09)
[2020-12-22] MEDS: OCULAR LUBRICANT OPHTHALMIC OINTMENT 7 GM TUBE OU SCH (22:58)
[2020-12-23] MEDS: LEVOTHYROXINE NA 100 MCG TABLET (FP) GT SCH (06:11)
[2020-12-23] MEDS: URSODIOL 300 MG CAPSULE PO SCH ×3 (06:11→22:11)
[2020-12-23] MEDS: AMINO ACIDS/PROTEIN HYDROLYS 30 ML LIQUID.PKT GT SCH (08:28)
[2020-12-23] MEDS ORDERED: PT OWN MED DRAWER 7, Y5N ONE ×2 (10:36→21:34)
[2020-12-23] MEDS: MAGNESIUM HYDROX 2400MG/30ML ORAL SUSPENSION 30 ML CUP GT SCH (10:49)
[2020-12-23] MEDS: levETIRAcetam 500 MG/5 ML ORAL SOLUTION (UNIT-DOSE CUPS) GT SCH ×2 (10:49→22:11)
[2020-12-23] MEDS: HEPARIN NA (PORCINE) 5,000 UNITS/ML 1ML VIAL SQ SCH ×2 (10:50→22:11)
[2020-12-23] MEDS: CHOLECALCIFEROL (VIT D SOLUTION) 400 UNIT/1 ML DROPS GT SCH (10:50)
[2020-12-23] MEDS: FAMOTIDINE 40 MG/5 ML ORAL SUSPENSION PEG SCH ×2 (10:50→22:12)
[2020-12-23] MEDS: CARBAMIDE PEROXIDE 6.5% OTIC 15 ML BOTTLE AU SCH (10:52)
[2020-12-23] MEDS: OCULAR LUBRICANT OPHTHALMIC OINTMENT 7 GM TUBE OU SCH (22:11)
[2020-12-24] MEDS: LEVOTHYROXINE NA 100 MCG TABLET (FP) GT SCH (06:16)
[2020-12-24] MEDS: URSODIOL 300 MG CAPSULE PO SCH ×3 (06:16→22:05)
[2020-12-24] MEDS ORDERED: PT OWN MED DRAWER 7, Y5N ONE (09:44)
[2020-12-24] MEDS: FAMOTIDINE 40 MG/5 ML ORAL SUSPENSION PEG SCH ×2 (09:57→22:06)
[2020-12-24] MEDS: HEPARIN NA (PORCINE) 5,000 UNITS/ML 1ML VIAL SQ SCH ×2 (09:58→22:05)
[2020-12-24] MEDS: CHOLECALCIFEROL (VIT D SOLUTION) 400 UNIT/1 ML DROPS GT SCH (09:58)
[2020-12-24] MEDS: CARBAMIDE PEROXIDE 6.5% OTIC 15 ML BOTTLE AU SCH (09:58)
[2020-12-24] MEDS: MAGNESIUM HYDROX 2400MG/30ML ORAL SUSPENSION 30 ML CUP GT SCH (09:58)
[2020-12-24] MEDS: AMINO ACIDS/PROTEIN HYDROLYS 30 ML LIQUID.PKT GT SCH (09:59)
[2020-12-24] MEDS: levETIRAcetam 500 MG/5 ML ORAL SOLUTION (UNIT-DOSE CUPS) GT SCH ×2 (11:00→22:05)
[2020-12-24] MEDS ORDERED: LIPASE/PROTEASE/AMYLASE 36,000 UNIT CAPSULE PO ONE (12:00)
[2020-12-24] MEDS ORDERED: TUBE FEED DECLOGGING SOLUTION 12,000 UNITS GT ONE (13:00)
[2020-12-24 14:00] LABS: BASO % 0.6 % (0-2.0); EOS % 1.5 % (0-4.5); LYMPH % 45.4 % (8-40); MCH 36.2 pg (25.7-33.7); MCHC 34.4 g/dl (32.0-36.0); MEAN CELL VOLUME 105.2 fl (80-96); MEAN PLT VOLUME 8.4 fl (7.5-11.1); MONO % 10.3 % (3.8-10.2); NEUT % 42.2 % (42.8-82.8); PLATELET COUNT 337 K/MM3 (134-434); RBC 3.04 M/mm3 (3.60-5.2); RDW 13.8 % (11.6-15.6); WHITE BLOOD COUNT 4.9 K/mm3 (4.0-10.0)
[2020-12-24 14:18] LABS: POTASSIUM 4.5 mmol/L (3.5-5.1)
[2020-12-24 14:21] LABS: CALCIUM 8.9 mg/dL (8.5-10.1)
[2020-12-24 14:22] LABS: ALBUMIN 2.7 g/dl (3.4-5.0); BLOOD UREA NITROGEN 11.4 mg/dL (7-18)
[2020-12-24 14:25] LABS: CREATININE 0.3 mg/dL (0.55-1.3)
[2020-12-24 14:26] LABS: BILIRUBIN,TOTAL 0.7 mg/dL (0.2-1); TOT PROT 6.6 g/dl (6.4-8.2)
[2020-12-24 15:06] LABS: ANISOCYTOSIS 1+; MACROCYTOSIS 1+; PLATELET ESTIMATE NORMAL
[2020-12-24] MEDS ORDERED: levETIRAcetam 500 MG/5 ML INJECTION VIAL IVPB ONE ×2 (15:30→20:42)
[2020-12-24] MEDS ORDERED: FAMOTIDINE 20 MG/50 ML IVPB 20 MG/50 ML MG IVPB ONE (20:42)
[2020-12-24] MEDS: OCULAR LUBRICANT OPHTHALMIC OINTMENT 7 GM TUBE OU SCH (22:05)
[2020-12-25] MEDS: URSODIOL 300 MG CAPSULE PO SCH ×3 (06:00→21:17)
[2020-12-25] MEDS: LEVOTHYROXINE NA 100 MCG TABLET (FP) GT SCH (06:00)
[2020-12-25 09:31] LABS: BASO % 0.5 % (0-2.0); EOS % 1.4 % (0-4.5); HEMATOCRIT 31.3 % (32.4-45.2); HEMOGLOBIN 10.4 GM/dL (10.7-15.3); LYMPH % 37.9 % (8-40); MCH 35.5 pg (25.7-33.7); MCHC 33.2 g/dl (32.0-36.0); MEAN CELL VOLUME 106.8 fl (80-96); MEAN PLT VOLUME 9.1 fl (7.5-11.1); MONO % 9.7 % (3.8-10.2); NEUT % 50.5 % (42.8-82.8); PLATELET COUNT 337 K/MM3 (134-434); RBC 2.93 M/mm3 (3.60-5.2); RDW 13.6 % (11.6-15.6); WHITE BLOOD COUNT 5.4 K/mm3 (4.0-10.0)
[2020-12-25 09:46] LABS: POTASSIUM 4.6 mmol/L (3.5-5.1)
[2020-12-25 10:02] LABS: ALBUMIN 2.8 g/dl (3.4-5.0); BLOOD UREA NITROGEN 10.6 mg/dL (7-18)
[2020-12-25 10:03] LABS: CALCIUM 8.8 mg/dL (8.5-10.1); MAGNESIUM 2.1 mg/dL (1.8-2.4)
[2020-12-25 10:07] LABS: CREATININE 0.3 mg/dL (0.55-1.3)
[2020-12-25 10:08] LABS: BILIRUBIN,TOTAL 0.2 mg/dL (0.2-1); TOT PROT 6.5 g/dl (6.4-8.2)
[2020-12-25] MEDS: AMINO ACIDS/PROTEIN HYDROLYS 30 ML LIQUID.PKT GT SCH (10:09)
[2020-12-25] MEDS: HEPARIN NA (PORCINE) 5,000 UNITS/ML 1ML VIAL SQ SCH ×2 (10:09→21:16)
[2020-12-25] MEDS: MAGNESIUM HYDROX 2400MG/30ML ORAL SUSPENSION 30 ML CUP GT SCH (10:09)
[2020-12-25] MEDS: levETIRAcetam 500 MG/5 ML ORAL SOLUTION (UNIT-DOSE CUPS) GT SCH ×2 (10:09→21:15)
[2020-12-25] MEDS: SCOPOLAMINE HYDROBROMIDE 1 PATCH PATCH.TD72 TD SCH (10:10)
[2020-12-25] MEDS: CARBAMIDE PEROXIDE 6.5% OTIC 15 ML BOTTLE AU SCH (10:10)
[2020-12-25] MEDS ORDERED: PT OWN MED DRAWER 7, Y5N ONE ×2 (10:14→14:36)
[2020-12-25] MEDS: CHOLECALCIFEROL (VIT D SOLUTION) 400 UNIT/1 ML DROPS GT SCH (10:15)
[2020-12-25] MEDS: FAMOTIDINE 40 MG/5 ML ORAL SUSPENSION PEG SCH ×2 (10:17→21:23)
[2020-12-25] MEDS: OCULAR LUBRICANT OPHTHALMIC OINTMENT 7 GM TUBE OU SCH (21:23)
[2020-12-26] MEDS: URSODIOL 300 MG CAPSULE PO SCH ×3 (06:14→22:50)
[2020-12-26] MEDS: LEVOTHYROXINE NA 100 MCG TABLET (FP) GT SCH (06:19)
[2020-12-26 08:59] LABS: BASO % 0.4 % (0-2.0); EOS % 1.6 % (0-4.5); HEMATOCRIT 30.8 % (32.4-45.2); HEMOGLOBIN 10.4 GM/dL (10.7-15.3); LYMPH % 29.8 % (8-40); MCH 35.7 pg (25.7-33.7); MCHC 33.6 g/dl (32.0-36.0); MEAN CELL VOLUME 106.1 fl (80-96); MEAN PLT VOLUME 8.8 fl (7.5-11.1); MONO % 10.3 % (3.8-10.2); NEUT % 57.9 % (42.8-82.8); PLATELET COUNT 338 K/MM3 (134-434); RBC 2.91 M/mm3 (3.60-5.2); RDW 13.5 % (11.6-15.6); WHITE BLOOD COUNT 5.6 K/mm3 (4.0-10.0)
[2020-12-26 09:13] LABS: POTASSIUM 4.4 mmol/L (3.5-5.1)
[2020-12-26 09:14] LABS: CALCIUM 8.8 mg/dL (8.5-10.1)
[2020-12-26 09:15] LABS: ALBUMIN 2.8 g/dl (3.4-5.0); BLOOD UREA NITROGEN 12.8 mg/dL (7-18)
[2020-12-26 09:18] LABS: CREATININE 0.4 mg/dL (0.55-1.3)
[2020-12-26 09:20] LABS: BILIRUBIN,TOTAL 0.3 mg/dL (0.2-1); TOT PROT 6.6 g/dl (6.4-8.2)
[2020-12-26] MEDS ORDERED: PT OWN MED DRAWER 7, Y5N ONE ×2 (09:48→13:23)
[2020-12-26] MEDS: levETIRAcetam 500 MG/5 ML ORAL SOLUTION (UNIT-DOSE CUPS) GT SCH ×2 (09:49→22:50)
[2020-12-26] MEDS: MAGNESIUM HYDROX 2400MG/30ML ORAL SUSPENSION 30 ML CUP GT SCH (09:49)
[2020-12-26] MEDS: CHOLECALCIFEROL (VIT D SOLUTION) 400 UNIT/1 ML DROPS GT SCH (09:49)
[2020-12-26] MEDS: AMINO ACIDS/PROTEIN HYDROLYS 30 ML LIQUID.PKT GT SCH (09:49)
[2020-12-26] MEDS: HEPARIN NA (PORCINE) 5,000 UNITS/ML 1ML VIAL SQ SCH (09:50)
[2020-12-26] MEDS: CARBAMIDE PEROXIDE 6.5% OTIC 15 ML BOTTLE AU SCH (09:50)
[2020-12-26] MEDS: FAMOTIDINE 40 MG/5 ML ORAL SUSPENSION PEG SCH ×2 (09:50→22:50)
[2020-12-26 19:08] VITALS: BMI 24.6
[2020-12-26] MEDS: OCULAR LUBRICANT OPHTHALMIC OINTMENT 7 GM TUBE OU SCH (22:50)
[2020-12-27] MEDS ORDERED: PT OWN MED DRAWER 7, Y5N ONE ×4 (06:03→21:19)
[2020-12-27] MEDS: URSODIOL 300 MG CAPSULE PO SCH ×3 (06:54→21:55)
[2020-12-27] MEDS: LEVOTHYROXINE NA 100 MCG TABLET (FP) GT SCH (06:54)
[2020-12-27] MEDS: CARBAMIDE PEROXIDE 6.5% OTIC 15 ML BOTTLE AU SCH (09:17)
[2020-12-27] MEDS: AMINO ACIDS/PROTEIN HYDROLYS 30 ML LIQUID.PKT GT SCH (09:17)
[2020-12-27] MEDS: levETIRAcetam 500 MG/5 ML ORAL SOLUTION (UNIT-DOSE CUPS) GT SCH ×2 (09:17→21:55)
[2020-12-27] MEDS: MAGNESIUM HYDROX 2400MG/30ML ORAL SUSPENSION 30 ML CUP GT SCH (09:18)
[2020-12-27] MEDS: CHOLECALCIFEROL (VIT D SOLUTION) 400 UNIT/1 ML DROPS GT SCH (09:18)
[2020-12-27] MEDS: FAMOTIDINE 40 MG/5 ML ORAL SUSPENSION PEG SCH ×2 (09:18→21:55)
[2020-12-27 09:40] LABS: BASO % 0.6 % (0-2.0); EOS % 1.2 % (0-4.5); HEMATOCRIT 32.9 % (32.4-45.2); HEMOGLOBIN 11.3 GM/dL (10.7-15.3); LYMPH % 28.7 % (8-40); MCH 36.1 pg (25.7-33.7); MCHC 34.2 g/dl (32.0-36.0); MEAN CELL VOLUME 105.5 fl (80-96); MEAN PLT VOLUME 8.7 fl (7.5-11.1); MONO % 9.3 % (3.8-10.2); NEUT % 60.2 % (42.8-82.8); PLATELET COUNT 344 K/MM3 (134-434); RBC 3.12 M/mm3 (3.60-5.2); RDW 13.3 % (11.6-15.6); WHITE BLOOD COUNT 5.6 K/mm3 (4.0-10.0)
[2020-12-27 10:03] LABS: POTASSIUM 4.5 mmol/L (3.5-5.1)
[2020-12-27 10:06] LABS: ALBUMIN 3.1 g/dl (3.4-5.0); BLOOD UREA NITROGEN 12.7 mg/dL (7-18); CALCIUM 8.8 mg/dL (8.5-10.1); MAGNESIUM 1.8 mg/dL (1.8-2.4)
[2020-12-27 10:09] LABS: CREATININE 0.4 mg/dL (0.55-1.3)
[2020-12-27 10:11] LABS: BILIRUBIN,TOTAL 0.6 mg/dL (0.2-1); TOT PROT 7.1 g/dl (6.4-8.2)
[2020-12-27] MEDS: ACETAMINOPHEN 650 MG/20.3 ML ORAL SOLUTION (CUPS) PO PRN (16:39)
[2020-12-27] MEDS: OCULAR LUBRICANT OPHTHALMIC OINTMENT 7 GM TUBE OU SCH (21:57)
[2020-12-28] MEDS: URSODIOL 300 MG CAPSULE PO SCH ×3 (06:19→22:50)
[2020-12-28] MEDS: LEVOTHYROXINE NA 100 MCG TABLET (FP) GT SCH (06:20)
[2020-12-28] MEDS ORDERED: PT OWN MED DRAWER 7, Y5N ONE ×2 (09:01→21:01)
[2020-12-28] MEDS: CHOLECALCIFEROL (VIT D SOLUTION) 400 UNIT/1 ML DROPS GT SCH (10:28)
[2020-12-28] MEDS: AMINO ACIDS/PROTEIN HYDROLYS 30 ML LIQUID.PKT GT SCH (10:28)
[2020-12-28] MEDS: SCOPOLAMINE HYDROBROMIDE 1 PATCH PATCH.TD72 TD SCH (10:28)
[2020-12-28] MEDS: MAGNESIUM HYDROX 2400MG/30ML ORAL SUSPENSION 30 ML CUP GT SCH (10:29)
[2020-12-28] MEDS: FAMOTIDINE 40 MG/5 ML ORAL SUSPENSION PEG SCH ×2 (10:29→22:54)
[2020-12-28] MEDS: levETIRAcetam 500 MG/5 ML ORAL SOLUTION (UNIT-DOSE CUPS) GT SCH ×2 (10:35→22:50)
[2020-12-28] MEDS: CARBAMIDE PEROXIDE 6.5% OTIC 15 ML BOTTLE AU SCH (10:36)
[2020-12-28] MEDS: ARTIFICIAL TEARS (POLYVINYL ALCOHOL) OPTH DROPS OU PRN (13:58)
[2020-12-28] MEDS ORDERED: BACLOFEN 10 MG TABLET (FP) PEG ONE (15:30)
[2020-12-28] MEDS: OCULAR LUBRICANT OPHTHALMIC OINTMENT 7 GM TUBE OU SCH (22:53)
[2020-12-29] MEDS: ACETAMINOPHEN 650 MG/20.3 ML ORAL SOLUTION (CUPS) PO PRN (04:35)
[2020-12-29] MEDS: ARTIFICIAL TEARS (POLYVINYL ALCOHOL) OPTH DROPS OU PRN ×2 (04:36→10:58)
[2020-12-29] MEDS: URSODIOL 300 MG CAPSULE PO SCH ×3 (06:27→21:55)
[2020-12-29] MEDS: LEVOTHYROXINE NA 100 MCG TABLET (FP) GT SCH (06:27)
[2020-12-29] MEDS ORDERED: PT OWN MED DRAWER 7, Y5N ONE ×3 (10:45→21:37)
[2020-12-29] MEDS: AMINO ACIDS/PROTEIN HYDROLYS 30 ML LIQUID.PKT GT SCH (10:55)
[2020-12-29] MEDS: FAMOTIDINE 40 MG/5 ML ORAL SUSPENSION PEG SCH ×2 (10:55→21:57)
[2020-12-29] MEDS: CHOLECALCIFEROL (VIT D SOLUTION) 400 UNIT/1 ML DROPS GT SCH (10:55)
[2020-12-29] MEDS: levETIRAcetam 500 MG/5 ML ORAL SOLUTION (UNIT-DOSE CUPS) GT SCH ×2 (10:55→21:56)
[2020-12-29] MEDS: MAGNESIUM HYDROX 2400MG/30ML ORAL SUSPENSION 30 ML CUP GT SCH (10:56)
[2020-12-29] MEDS: CARBAMIDE PEROXIDE 6.5% OTIC 15 ML BOTTLE AU SCH (10:58)
[2020-12-29] MEDS: AZITHROMYCIN 1% OPHTH SOLN 1 BOTTLE OU SCH ×2 (11:16→21:58)
[2020-12-29] MEDS: OCULAR LUBRICANT OPHTHALMIC OINTMENT 7 GM TUBE OU SCH (21:58)
[2020-12-30] MEDS: URSODIOL 300 MG CAPSULE PO SCH ×3 (06:07→23:17)
[2020-12-30] MEDS: LEVOTHYROXINE NA 100 MCG TABLET (FP) GT SCH (06:07)
[2020-12-30 08:39] LABS: BASO % 0.7 % (0-2.0); EOS % 1.5 % (0-4.5); HEMATOCRIT 32.5 % (32.4-45.2); HEMOGLOBIN 11.2 GM/dL (10.7-15.3); MCH 36.1 pg (25.7-33.7); MCHC 34.6 g/dl (32.0-36.0); MEAN CELL VOLUME 104.4 fl (80-96); MEAN PLT VOLUME 9.1 fl (7.5-11.1); MONO % 8.8 % (3.8-10.2); PLATELET COUNT 258 K/MM3 (134-434); RBC 3.11 M/mm3 (3.60-5.2)
[2020-12-30] MEDS ORDERED: PT OWN MED DRAWER 7, Y5N ONE ×4 (08:39→22:58)
[2020-12-30] MEDS: AMINO ACIDS/PROTEIN HYDROLYS 30 ML LIQUID.PKT GT SCH (08:42)
[2020-12-30 08:56] LABS: POTASSIUM 4.1 mmol/L (3.5-5.1)
[2020-12-30 08:58] LABS: CALCIUM 8.9 mg/dL (8.5-10.1)
[2020-12-30 08:59] LABS: ALBUMIN 3.2 g/dl (3.4-5.0); BLOOD UREA NITROGEN 15.2 mg/dL (7-18); MAGNESIUM 2.1 mg/dL (1.8-2.4)
[2020-12-30 09:02] LABS: CREATININE 0.4 mg/dL (0.55-1.3)
[2020-12-30 09:04] LABS: BILIRUBIN,TOTAL 0.2 mg/dL (0.2-1); TOT PROT 7.2 g/dl (6.4-8.2)
[2020-12-30] MEDS: levETIRAcetam 500 MG/5 ML ORAL SOLUTION (UNIT-DOSE CUPS) GT SCH ×2 (10:47→23:17)
[2020-12-30] MEDS: MAGNESIUM HYDROX 2400MG/30ML ORAL SUSPENSION 30 ML CUP GT SCH (10:48)
[2020-12-30] MEDS: AZITHROMYCIN 1% OPHTH SOLN 1 BOTTLE OU SCH ×2 (10:49→23:18)
[2020-12-30] MEDS: CARBAMIDE PEROXIDE 6.5% OTIC 15 ML BOTTLE AU SCH (10:50)
[2020-12-30] MEDS: FAMOTIDINE 40 MG/5 ML ORAL SUSPENSION PEG SCH ×2 (12:43→23:18)
[2020-12-30] MEDS: CHOLECALCIFEROL (VIT D SOLUTION) 400 UNIT/1 ML DROPS GT SCH (12:43)
[2020-12-30] MEDS: ACETAMINOPHEN 650 MG/20.3 ML ORAL SOLUTION (CUPS) PO PRN (14:44)
[2020-12-30] MEDS: OCULAR LUBRICANT OPHTHALMIC OINTMENT 7 GM TUBE OU SCH (23:18)
[2020-12-31] MEDS: LEVOTHYROXINE NA 100 MCG TABLET (FP) GT SCH (06:26)
[2020-12-31] MEDS: URSODIOL 300 MG CAPSULE PO SCH ×3 (06:26→22:13)
[2020-12-31] MEDS ORDERED: PT OWN MED DRAWER 7, Y5N ONE ×3 (08:58→21:37)
[2020-12-31] MEDS: AMINO ACIDS/PROTEIN HYDROLYS 30 ML LIQUID.PKT GT SCH (09:09)
[2020-12-31] MEDS: MAGNESIUM HYDROX 2400MG/30ML ORAL SUSPENSION 30 ML CUP GT SCH (09:10)
[2020-12-31] MEDS: CARBAMIDE PEROXIDE 6.5% OTIC 15 ML BOTTLE AU SCH (10:48)
[2020-12-31] MEDS: AZITHROMYCIN 1% OPHTH SOLN 1 BOTTLE OU SCH ×2 (10:49→22:13)
[2020-12-31] MEDS: levETIRAcetam 500 MG/5 ML ORAL SOLUTION (UNIT-DOSE CUPS) GT SCH ×2 (10:50→22:13)
[2020-12-31] MEDS: SCOPOLAMINE HYDROBROMIDE 1 PATCH PATCH.TD72 TD SCH (10:51)
[2020-12-31] MEDS: CHOLECALCIFEROL (VIT D SOLUTION) 400 UNIT/1 ML DROPS GT SCH (10:51)
[2020-12-31] MEDS: FAMOTIDINE 40 MG/5 ML ORAL SUSPENSION PEG SCH ×2 (10:52→22:14)
[2020-12-31 11:05] LABS: BASO % 0.4 % (0-2.0); EOS % 1.2 % (0-4.5); HEMOGLOBIN 10.9 GM/dL (10.7-15.3); LYMPH % 25.6 % (8-40); MCH 35.6 pg (25.7-33.7); MEAN CELL VOLUME 104.6 fl (80-96); MEAN PLT VOLUME 9.4 fl (7.5-11.1); MONO % 8.3 % (3.8-10.2); NEUT % 64.5 % (42.8-82.8); PLATELET COUNT 231 K/MM3 (134-434); RBC 3.06 M/mm3 (3.60-5.2); WHITE BLOOD COUNT 5.8 K/mm3 (4.0-10.0)
[2020-12-31 11:16] LABS: POTASSIUM 3.9 mmol/L (3.5-5.1)
[2020-12-31 11:28] LABS: ALBUMIN 3.1 g/dl (3.4-5.0); BLOOD UREA NITROGEN 12.4 mg/dL (7-18); CALCIUM 9.1 mg/dL (8.5-10.1)
[2020-12-31 11:30] LABS: BILIRUBIN,TOTAL 0.4 mg/dL (0.2-1); MAGNESIUM 2.2 mg/dL (1.8-2.4)
[2020-12-31 11:31] LABS: CREATININE 0.4 mg/dL (0.55-1.3)
[2020-12-31] MEDS: OCULAR LUBRICANT OPHTHALMIC OINTMENT 7 GM TUBE OU SCH (22:13)
[2020-12-31] MEDS: POLYETHYLENE GLYCOL 3350 119 GM BTL GT SCH (22:13)
[2021-01-01] MEDS: URSODIOL 300 MG CAPSULE PO SCH ×3 (06:19→22:50)
[2021-01-01] MEDS: LEVOTHYROXINE NA 100 MCG TABLET (FP) GT SCH (06:19)
[2021-01-01 07:54] LABS: BASO % 0.4 % (0-2.0); EOS % 1.3 % (0-4.5); HEMATOCRIT 32.6 % (32.4-45.2); HEMOGLOBIN 11.1 GM/dL (10.7-15.3); LYMPH % 32.5 % (8-40); MCH 35.5 pg (25.7-33.7); MEAN CELL VOLUME 104.5 fl (80-96); MEAN PLT VOLUME 9.2 fl (7.5-11.1); MONO % 9.8 % (3.8-10.2); PLATELET COUNT 221 K/MM3 (134-434); RBC 3.12 M/mm3 (3.60-5.2); RDW 13.1 % (11.6-15.6); WHITE BLOOD COUNT 6.5 K/mm3 (4.0-10.0)
[2021-01-01 08:04] LABS: POTASSIUM 3.9 mmol/L (3.5-5.1)
[2021-01-01 08:10] LABS: CALCIUM 8.9 mg/dL (8.5-10.1)
[2021-01-01 08:11] LABS: ALBUMIN 3.1 g/dl (3.4-5.0); BLOOD UREA NITROGEN 16.6 mg/dL (7-18); MAGNESIUM 2.1 mg/dL (1.8-2.4)
[2021-01-01 08:14] LABS: CREATININE 0.4 mg/dL (0.55-1.3)
[2021-01-01 08:15] LABS: BILIRUBIN,TOTAL 0.2 mg/dL (0.2-1)
[2021-01-01] MEDS ORDERED: PT OWN MED DRAWER 7, Y5N ONE (10:00)
[2021-01-01] MEDS: AMINO ACIDS/PROTEIN HYDROLYS 30 ML LIQUID.PKT GT SCH (10:15)
[2021-01-01] MEDS: levETIRAcetam 500 MG/5 ML ORAL SOLUTION (UNIT-DOSE CUPS) GT SCH ×2 (10:15→22:49)
[2021-01-01] MEDS: MAGNESIUM HYDROX 2400MG/30ML ORAL SUSPENSION 30 ML CUP GT SCH (10:15)
[2021-01-01] MEDS: AZITHROMYCIN 1% OPHTH SOLN 1 BOTTLE OU SCH ×2 (10:16→22:44)
[2021-01-01] MEDS: CARBAMIDE PEROXIDE 6.5% OTIC 15 ML BOTTLE AU SCH (10:17)
[2021-01-01] MEDS: POLYETHYLENE GLYCOL 3350 119 GM BTL GT SCH ×2 (10:17→22:49)
[2021-01-01] MEDS: CHOLECALCIFEROL (VIT D SOLUTION) 400 UNIT/1 ML DROPS GT SCH (10:17)
[2021-01-01] MEDS: FAMOTIDINE 40 MG/5 ML ORAL SUSPENSION PEG SCH ×2 (10:17→22:50)
[2021-01-01] MEDS ORDERED: NYSTATIN 500,000 UNITS/5 ML SUSPENSION PO ONE (16:38)
[2021-01-01] MEDS: OCULAR LUBRICANT OPHTHALMIC OINTMENT 7 GM TUBE OU SCH (22:45)
[2021-01-02] MEDS: URSODIOL 300 MG CAPSULE PO SCH ×3 (07:14→22:40)
[2021-01-02] MEDS: LEVOTHYROXINE NA 100 MCG TABLET (FP) GT SCH (07:14)
[2021-01-02 08:44] LABS: BASO % 0.2 % (0-2.0); EOS % 1.5 % (0-4.5); HEMATOCRIT 33.2 % (32.4-45.2); HEMOGLOBIN 11.4 GM/dL (10.7-15.3); LYMPH % 33.8 % (8-40); MCH 35.5 pg (25.7-33.7); MCHC 34.2 g/dl (32.0-36.0); MEAN CELL VOLUME 103.7 fl (80-96); MEAN PLT VOLUME 9.2 fl (7.5-11.1); MONO % 10.9 % (3.8-10.2); NEUT % 53.6 % (42.8-82.8); PLATELET COUNT 222 K/MM3 (134-434); RDW 12.8 % (11.6-15.6); WHITE BLOOD COUNT 6.1 K/mm3 (4.0-10.0)
[2021-01-02 09:27] LABS: ALBUMIN 3.1 g/dl (3.4-5.0); BLOOD UREA NITROGEN 13.7 mg/dL (7-18); CALCIUM 9.1 mg/dL (8.5-10.1)
[2021-01-02 09:31] LABS: CREATININE 0.4 mg/dL (0.55-1.3)
[2021-01-02 09:32] LABS: BILIRUBIN,TOTAL 0.3 mg/dL (0.2-1)
[2021-01-02] MEDS ORDERED: PT OWN MED DRAWER 7, Y5N ONE ×3 (09:57→21:34)
[2021-01-02] MEDS: levETIRAcetam 500 MG/5 ML ORAL SOLUTION (UNIT-DOSE CUPS) GT SCH ×2 (09:59→22:39)
[2021-01-02] MEDS: MAGNESIUM HYDROX 2400MG/30ML ORAL SUSPENSION 30 ML CUP GT SCH (09:59)
[2021-01-02] MEDS: AMINO ACIDS/PROTEIN HYDROLYS 30 ML LIQUID.PKT GT SCH (10:00)
[2021-01-02] MEDS: FAMOTIDINE 40 MG/5 ML ORAL SUSPENSION PEG SCH ×2 (10:00→22:40)
[2021-01-02] MEDS: CHOLECALCIFEROL (VIT D SOLUTION) 400 UNIT/1 ML DROPS GT SCH (10:01)
[2021-01-02] MEDS: POLYETHYLENE GLYCOL 3350 119 GM BTL GT SCH ×2 (10:03→22:40)
[2021-01-02] MEDS: AZITHROMYCIN 1% OPHTH SOLN 1 BOTTLE OU SCH ×2 (10:04→22:40)
[2021-01-02] MEDS: CARBAMIDE PEROXIDE 6.5% OTIC 15 ML BOTTLE AU SCH (10:05)
[2021-01-02] MEDS: OCULAR LUBRICANT OPHTHALMIC OINTMENT 7 GM TUBE OU SCH (22:40)
[2021-01-03] MEDS ORDERED: PT OWN MED DRAWER 7, Y5N ONE ×4 (05:26→15:11)
[2021-01-03] MEDS: URSODIOL 300 MG CAPSULE PO SCH ×2 (06:26→15:11)
[2021-01-03] MEDS: LEVOTHYROXINE NA 100 MCG TABLET (FP) GT SCH (06:26)
[2021-01-03] MEDS ORDERED: MULTIVIT-MINERALS ORAL LIQUID PO SCH (10:00)
[2021-01-03 10:15] LABS: POTASSIUM 3.8 mmol/L (3.5-5.1)
[2021-01-03 10:20] LABS: ALBUMIN 3.2 g/dl (3.4-5.0); BLOOD UREA NITROGEN 13.8 mg/dL (7-18); CALCIUM 9.1 mg/dL (8.5-10.1)
[2021-01-03] MEDS: AMINO ACIDS/PROTEIN HYDROLYS 30 ML LIQUID.PKT GT SCH (10:21)
[2021-01-03] MEDS: MAGNESIUM HYDROX 2400MG/30ML ORAL SUSPENSION 30 ML CUP GT SCH (10:21)
[2021-01-03] MEDS: levETIRAcetam 500 MG/5 ML ORAL SOLUTION (UNIT-DOSE CUPS) GT SCH (10:21)
[2021-01-03 10:22] LABS: MAGNESIUM 2.1 mg/dL (1.8-2.4)
[2021-01-03] MEDS: AZITHROMYCIN 1% OPHTH SOLN 1 BOTTLE OU SCH (10:22)
[2021-01-03] MEDS: POLYETHYLENE GLYCOL 3350 119 GM BTL GT SCH (10:23)
[2021-01-03] MEDS: CARBAMIDE PEROXIDE 6.5% OTIC 15 ML BOTTLE AU SCH (10:23)
[2021-01-03] MEDS: FAMOTIDINE 40 MG/5 ML ORAL SUSPENSION PEG SCH (10:24)
[2021-01-03 10:25] LABS: BASO % 0.5 % (0-2.0); EOS % 1.5 % (0-4.5); HEMATOCRIT 32.6 % (32.4-45.2); HEMOGLOBIN 11.2 GM/dL (10.7-15.3); LYMPH % 26.1 % (8-40); MCH 35.6 pg (25.7-33.7); MCHC 34.3 g/dl (32.0-36.0); MEAN CELL VOLUME 103.7 fl (80-96); MEAN PLT VOLUME 9.8 fl (7.5-11.1); MONO % 9.5 % (3.8-10.2); NEUT % 62.4 % (42.8-82.8); PLATELET COUNT 188 K/MM3 (134-434); RBC 3.15 M/mm3 (3.60-5.2); WHITE BLOOD COUNT 6.6 K/mm3 (4.0-10.0)
[2021-01-03] MEDS: SCOPOLAMINE HYDROBROMIDE 1 PATCH PATCH.TD72 TD SCH (10:25)
[2021-01-03] MEDS: CHOLECALCIFEROL (VIT D SOLUTION) 400 UNIT/1 ML DROPS GT SCH (10:25)
[2021-01-03 10:26] LABS: CREATININE 0.4 mg/dL (0.55-1.3)
[2021-01-03 10:27] LABS: BILIRUBIN,TOTAL 0.3 mg/dL (0.2-1)
[2021-01-03 10:28] LABS: TOT PROT 6.9 g/dl (6.4-8.2)
[2021-01-03 15:05] VITALS: BP 99/68; PULSE 76; TEMP 98.3
== END 2021-01-03 17:02 | disposition home or self-care (01) | DRG 208 ==
LOC: JER 19:58 → JERBED 22:13 → JICU 11-30 15:14 → J6S 12-13 14:44
PROVIDERS: ADMIT Internal Medicine; ATTEND Nurse Practitioner Family
PROC: 3E0G76Z Introduction of Nutritional Substance into Upper GI, Via Natural or Artificial Opening (ICD-10-PCS; 2020-11-29)
PROC: 5A1945Z Respiratory Ventilation, 24-96 Consecutive Hours (ICD-10-PCS; principal; 2020-11-30)
PROC: 0BH17EZ Insertion of Endotracheal Airway into Trachea, Via Natural or Artificial Opening (ICD-10-PCS; 2020-11-30)
PROC: 0BC17ZZ Extirpation of Matter from Trachea, Via Natural or Artificial Opening (ICD-10-PCS; 2020-11-30)
DX: J96.01 Acute respiratory failure with hypoxia (principal); R53.2 Functional quadriplegia; J69.0 Pneumonitis due to inhalation of food and vomit; J15.212 Pneumonia due to Methicillin resistant Staphylococcus aureus; J98.11 Atelectasis; E87.2 Acidosis; T17.498A Other foreign object in trachea causing other injury, initial encounter; B37.0 Candidal stomatitis; E27.40 Unspecified adrenocortical insufficiency; G40.909 Epilepsy, unspecified, not intractable, without status epilepticus; Z87.820 Personal history of traumatic brain injury; Z88.0 Allergy status to penicillin; Z93.1 Gastrostomy status; J04.10 Acute tracheitis without obstruction; D64.9 Anemia, unspecified; R74.01 Elevation of levels of liver transaminase levels; E03.9 Hypothyroidism, unspecified; K59.00 Constipation, unspecified; E06.3 Autoimmune thyroiditis; X58.XXXA Exposure to other specified factors, initial encounter; Y93.89 Activity, other specified; Y92.89 Other specified places as the place of occurrence of the external cause; Y99.8 Other external cause status; Z20.822 Contact with and (suspected) exposure to COVID-19; I95.9 Hypotension, unspecified; D72.829 Elevated white blood cell count, unspecified; R19.7 Diarrhea, unspecified; M41.9 Scoliosis, unspecified
CPT/HCPCS: 36415; 36600; 70450-TC; 71045-TC-FY; 74018-TC-FY; 74176-TC; 76705-TC; 80048; 80053; 81003; 82248; 82550; 82728; 82803; 83605; 83615; 83735; 84100; 84439; 84443; 84484; 85025; 85027; 85379; 85610; 85730; 86140; 87040; 87045; 87046; 87070; 87077; 87086; 87186; 87205; 87324; 87449; 87804; 90670; 93005; 93010; 94002; 94640; 94660; 99291; C9803; J0131; J0475; J1644; J3243; U0003

== ENCOUNTER 2023-11-14 00:48 | Inpatient (IN) | payer OTHER ==
[2023-11-14 01:37] VITALS: BMI 28.2
[2023-11-14 03:47] LABS: BASO % 0.3 % (0-2.0); EOS % 0.5 % (0-4.5); HEMOGLOBIN 11.2 GM/dL (10.7-15.3); LYMPH % 11.1 % (8-40); MCH 35.3 pg (25.7-33.7); MCHC 33.8 g/dl (32.0-36.0); MEAN CELL VOLUME 104.3 fl (80-96); MEAN PLT VOLUME 8.5 fl (7.5-11.1); MONO % 6.4 % (3.8-10.2); NEUT % 81.7 % (42.8-82.8); PLATELET COUNT 231 10^3/uL (134-434); RBC 3.16 M/mm3 (3.60-5.2); RDW 15.1 % (11.6-15.6); WHITE BLOOD COUNT 8.3 K/mm3 (4.0-10.0)
[2023-11-14 04:06] LABS: POTASSIUM 4.9 mmol/L (3.5-5.1)
[2023-11-14 04:08] LABS: ALBUMIN 3.4 g/dl (3.4-5.0); BLOOD UREA NITROGEN 12.4 mg/dL (7-18); CALCIUM 9.6 mg/dL (8.5-10.1)
[2023-11-14 04:11] LABS: CREATININE 0.7 mg/dL (0.55-1.3)
[2023-11-14 04:13] LABS: BILIRUBIN,TOTAL 0.6 mg/dL (0.2-1); TOT PROT 7.6 g/dl (6.4-8.2)
[2023-11-14] MEDS ORDERED: MEROPENEM 1 GM in DEXTROSE 5%-WATER 100 ML IVPB ONE (04:26)
[2023-11-14] MEDS ORDERED: DEXAMETHASONE SOD PHOSPHATE 10 MG/1 ML VIAL IVPUSH ONE (05:20)
[2023-11-14] MEDS ORDERED: DEXAMETHASONE SOD PHOSPHATE 10 MG/1 ML VIAL ONE (05:22)
[2023-11-14] MEDS ORDERED: MEROPENEM 1 GM VIAL (RESTRICTED TO ID) IVPB ONE (05:22)
[2023-11-14] MEDS ORDERED: HEPARIN NA (PORCINE) 5,000 UNITS/ML 1ML VIAL ONE (11:06)
[2023-11-14] MEDS: HEPARIN NA (PORCINE) 5,000 UNITS/ML 1ML VIAL SQ SCH (11:14)
[2023-11-14] MEDS ORDERED: SODIUM CHLORIDE NASAL SPRAY 44 ML BOTTLE NS PRN (13:29)
[2023-11-14] MEDS ORDERED: SIMETHICONE 40 MG/0.6 ML BOTTLE GT PRN (13:29)
[2023-11-14] MEDS ORDERED: BISACODYL 10 MG SUPP.RECT PR PRN (13:29)
[2023-11-14] MEDS ORDERED: ZINC OXIDE 20% TOPICAL OINTMENT 30 GM TUBE TP PRN (13:29)
[2023-11-14] MEDS ORDERED: ACETAMINOPHEN 650 MG/20.3 ML ORAL SOLUTION (CUPS) GT PRN ×2 (13:29→14:18)
[2023-11-14] MEDS: levETIRAcetam 500 MG/5 ML ORAL SOLUTION (UNIT-DOSE CUPS) PO SCH (14:34)
[2023-11-14] MEDS: SCOPOLAMINE HYDROBROMIDE 1 PATCH PATCH.TD72 TD SCH (14:34)
[2023-11-14] MEDS ORDERED: ALBUTEROL SO4 2.5/IPRATROPIUM 0.5 INH SOL 3 ML VIAL.NEB. NEB ONE ×2 (16:52→20:36)
[2023-11-14] MEDS: ALBUTEROL SO4 2.5/IPRATROPIUM 0.5 INH SOL 3 ML VIAL.NEB. NEB SCH ×2 (16:55→20:43)
[2023-11-14] MEDS ORDERED: methylPREDNISolone NA SUCC 40 MG/1 ML VIAL ONE (17:52)
[2023-11-14] MEDS: methylPREDNISolone NA SUCC 40 MG/1 ML VIAL IVPUSH SCH (17:55)
[2023-11-14] MEDS ORDERED: AZTREONAM 1 GM VIAL (RESTRICTED TO ID) ONE (20:35)
[2023-11-14] MEDS ORDERED: CLINDAMYCIN 600MG PREMIX IVPB 600 MG/50 ML BAG IVPB ONE (20:36)
[2023-11-14] MEDS: CLINDAMYCIN 600MG PREMIX IVPB 600 MG/50 ML BAG IVPB SCH (20:43)
[2023-11-14] MEDS: AZTREONAM 1 GM in DEXTROSE 5%-WATER - 50 ML IVPB SCH (21:23)
[2023-11-14] MEDS ORDERED: PATIENT'S OWN MEDICATION (NON-FORMULARY) (Cyclosporine [Restasis] 1 EACH Droperette) OU SCH (22:00)
[2023-11-15] MEDS ORDERED: HEPARIN NA (PORCINE) 5,000 UNITS/ML 1ML VIAL ONE (00:21)
[2023-11-15] MEDS: ARTIFICIAL TEARS OPHTHALMIC DROPS OU SCH ×2 (01:40→21:57)
[2023-11-15] MEDS: URSODIOL 300 MG CAPSULE NR SCH ×4 (01:40→21:57)
[2023-11-15] MEDS: HEPARIN NA (PORCINE) 5,000 UNITS/ML 1ML VIAL SQ SCH ×3 (01:40→21:57)
[2023-11-15] MEDS: levETIRAcetam 500 MG/5 ML ORAL SOLUTION (UNIT-DOSE CUPS) PO SCH ×3 (01:41→21:57)
[2023-11-15] MEDS: CHOLECALCIFEROL (VIT D SOLUTION) 400 UNIT/1 ML DROPS GT SCH ×3 (01:41→21:58)
[2023-11-15] MEDS: FAMOTIDINE 20 MG/2.5 ML ORAL LIQUID GT SCH ×3 (01:41→21:57)
[2023-11-15] MEDS ORDERED: AZTREONAM 1 GM VIAL (RESTRICTED TO ID) ONE ×3 (02:21→17:18)
[2023-11-15] MEDS ORDERED: CLINDAMYCIN 600MG PREMIX IVPB 600 MG/50 ML BAG IVPB ONE ×3 (02:22→17:19)
[2023-11-15] MEDS ORDERED: methylPREDNISolone NA SUCC 40 MG/1 ML VIAL ONE (02:22)
[2023-11-15] MEDS: methylPREDNISolone NA SUCC 40 MG/1 ML VIAL IVPUSH SCH ×3 (02:25→17:34)
[2023-11-15] MEDS: CLINDAMYCIN 600MG PREMIX IVPB 600 MG/50 ML BAG IVPB SCH ×3 (02:26→17:34)
[2023-11-15] MEDS: AZTREONAM 1 GM in DEXTROSE 5%-WATER - 50 ML IVPB SCH ×3 (03:11→17:34)
[2023-11-15] MEDS: LEVOTHYROXINE NA 100 MCG TABLET (FP) GT SCH (06:11)
[2023-11-15] MEDS: ALBUTEROL SO4 2.5/IPRATROPIUM 0.5 INH SOL 3 ML VIAL.NEB. NEB SCH ×4 (08:17→21:57)
[2023-11-15 08:27] LABS: HEMATOCRIT 28.2 % (32.4-45.2); HEMOGLOBIN 9.6 GM/dL (10.7-15.3); MCH 35.8 pg (25.7-33.7); MCHC 34.1 g/dl (32.0-36.0); MEAN CELL VOLUME 105.1 fl (80-96); MEAN PLT VOLUME 8.3 fl (7.5-11.1); PLATELET COUNT 192 10^3/uL (134-434); RBC 2.68 M/mm3 (3.60-5.2); RDW 14.7 % (11.6-15.6); WHITE BLOOD COUNT 7.5 K/mm3 (4.0-10.0)
[2023-11-15 08:46] LABS: POTASSIUM 3.8 mmol/L (3.5-5.1)
[2023-11-15 08:57] LABS: CALCIUM 9.2 mg/dL (8.5-10.1)
[2023-11-15 08:58] LABS: BLOOD UREA NITROGEN 13.8 mg/dL (7-18); MAGNESIUM 2.2 mg/dL (1.8-2.4)
[2023-11-15 09:00] LABS: PHOSPHOROUS 2.4 mg/dL (2.5-4.9)
[2023-11-15 09:01] LABS: CREATININE 0.6 mg/dL (0.55-1.3)
[2023-11-15 09:07] LABS: ALBUMIN 3.2 g/dl (3.4-5.0)
[2023-11-15 09:08] LABS: BILIRUBIN,TOTAL 0.4 mg/dL (0.2-1)
[2023-11-15 09:09] LABS: TOT PROT 6.8 g/dl (6.4-8.2)
[2023-11-15 09:10] LABS: BILIRUBIN,DIRECT 0.2 mg/dL (0.0-0.2)
[2023-11-15] MEDS ORDERED: PATIENT'S OWN MEDICATION (NON-FORMULARY) (Olopatadine Hcl [Pataday] 2.5 ML Drops) OU SCH (10:00)
[2023-11-15] MEDS ORDERED: PATIENT'S OWN MEDICATION (NON-FORMULARY) (Biotin [Biotin] 5,000 MCG Tab.Rapdis) GT SCH (10:00)
[2023-11-15] MEDS ORDERED: PATIENT'S OWN MEDICATION (NON-FORMULARY) (Omeprazole 20 MG Capsule.Dr) GT SCH (10:00)
[2023-11-15] MEDS: TETRAHYDROZOLINE HCL EYE DROPS OU SCH (10:46)
[2023-11-15] MEDS: ASCORBIC ACID 500 MG/5 ML UNIT DOSE CUP GT SCH (10:46)
[2023-11-15] MEDS: FLUTICASONE PROP 0.05% 16 GM NASAL SPRAY NS SCH (10:46)
[2023-11-15] MEDS: CALCIUM 500MG/VIT-D 200 UNITS COMBO TABLET (FP) GT SCH (10:46)
[2023-11-15] MEDS: MAGNESIUM HYDROX 2400MG/30ML ORAL SUSPENSION 30 ML CUP GT SCH (10:46)
[2023-11-15] MEDS ORDERED: ALBUTEROL SO4 2.5/IPRATROPIUM 0.5 INH SOL 3 ML VIAL.NEB. NEB ONE (12:28)
[2023-11-15] MEDS ORDERED: FAMOTIDINE 20 MG TABLET ONE (21:36)
[2023-11-16] MEDS ORDERED: AZTREONAM 1 GM VIAL (RESTRICTED TO ID) ONE ×3 (02:26→18:26)
[2023-11-16] MEDS ORDERED: methylPREDNISolone NA SUCC 40 MG/1 ML VIAL ONE (02:28)
[2023-11-16] MEDS ORDERED: CLINDAMYCIN 600MG PREMIX IVPB 600 MG/50 ML BAG IVPB ONE ×3 (02:28→17:43)
[2023-11-16] MEDS: methylPREDNISolone NA SUCC 40 MG/1 ML VIAL IVPUSH SCH ×3 (02:43→17:38)
[2023-11-16] MEDS: CLINDAMYCIN 600MG PREMIX IVPB 600 MG/50 ML BAG IVPB SCH ×3 (02:43→17:50)
[2023-11-16] MEDS: AZTREONAM 1 GM in DEXTROSE 5%-WATER - 50 ML IVPB SCH ×3 (03:23→18:30)
[2023-11-16 08:37] LABS: HEMATOCRIT 30.9 % (32.4-45.2); HEMOGLOBIN 10.8 GM/dL (10.7-15.3); MCH 37.4 pg (25.7-33.7); MCHC 34.9 g/dl (32.0-36.0); MEAN CELL VOLUME 106.9 fl (80-96); MEAN PLT VOLUME 8.6 fl (7.5-11.1); RBC 2.89 M/mm3 (3.60-5.2); RDW 14.7 % (11.6-15.6); WHITE BLOOD COUNT 10.7 K/mm3 (4.0-10.0)
[2023-11-16 08:39] LABS: PLATELET COUNT 191 10^3/uL (134-434)
[2023-11-16 08:47] LABS: POTASSIUM 4.5 mmol/L (3.5-5.1)
[2023-11-16 08:50] LABS: CALCIUM 9.2 mg/dL (8.5-10.1)
[2023-11-16 08:51] LABS: BLOOD UREA NITROGEN 19.1 mg/dL (7-18)
[2023-11-16 08:54] LABS: CREATININE 0.4 mg/dL (0.55-1.3)
[2023-11-16] MEDS: ALBUTEROL SO4 2.5/IPRATROPIUM 0.5 INH SOL 3 ML VIAL.NEB. NEB SCH ×4 (10:15→20:43)
[2023-11-16] MEDS: URSODIOL 300 MG CAPSULE NR SCH ×3 (10:15→22:22)
[2023-11-16] MEDS: LEVOTHYROXINE NA 100 MCG TABLET (FP) GT SCH (10:15)
[2023-11-16] MEDS: MAGNESIUM HYDROX 2400MG/30ML ORAL SUSPENSION 30 ML CUP GT SCH (10:15)
[2023-11-16] MEDS: FAMOTIDINE 20 MG/2.5 ML ORAL LIQUID GT SCH ×2 (10:16→22:24)
[2023-11-16] MEDS: CALCIUM 500MG/VIT-D 200 UNITS COMBO TABLET (FP) GT SCH (10:16)
[2023-11-16] MEDS: levETIRAcetam 500 MG/5 ML ORAL SOLUTION (UNIT-DOSE CUPS) PO SCH ×2 (10:18→22:23)
[2023-11-16] MEDS: ASCORBIC ACID 500 MG/5 ML UNIT DOSE CUP GT SCH (10:18)
[2023-11-16] MEDS: HEPARIN NA (PORCINE) 5,000 UNITS/ML 1ML VIAL SQ SCH ×2 (10:19→22:23)
[2023-11-16] MEDS: CHOLECALCIFEROL (VIT D3) 1,000 UNIT (25 MCG) TABLET GT SCH ×2 (10:19→22:24)
[2023-11-16] MEDS ORDERED: MAG HYDROX/AL HYDROX/SIMETH 30 ML UNIT-DOSE CUP ONE (10:24)
[2023-11-16 11:23] LABS: ANISOCYTOSIS 3+; MACROCYTOSIS 0
[2023-11-16] MEDS: FLUTICASONE PROP 0.05% 16 GM NASAL SPRAY NS SCH (13:24)
[2023-11-16] MEDS: TETRAHYDROZOLINE HCL EYE DROPS OU SCH (13:25)
[2023-11-16] MEDS: ARTIFICIAL TEARS OPHTHALMIC DROPS OU SCH (22:19)
[2023-11-17] MEDS: methylPREDNISolone NA SUCC 40 MG/1 ML VIAL IVPUSH SCH ×3 (02:19→18:12)
[2023-11-17] MEDS: AZTREONAM 1 GM in DEXTROSE 5%-WATER - 50 ML IVPB SCH ×3 (02:20→18:11)
[2023-11-17] MEDS: CLINDAMYCIN 600MG PREMIX IVPB 600 MG/50 ML BAG IVPB SCH ×3 (02:20→17:24)
[2023-11-17] MEDS ORDERED: AZTREONAM 1 GM VIAL (RESTRICTED TO ID) ONE (02:30)
[2023-11-17] MEDS ORDERED: CLINDAMYCIN 600MG PREMIX IVPB 600 MG/50 ML BAG IVPB ONE ×2 (02:32→12:51)
[2023-11-17] MEDS: URSODIOL 300 MG CAPSULE NR SCH ×3 (06:09→21:22)
[2023-11-17] MEDS: LEVOTHYROXINE NA 100 MCG TABLET (FP) GT SCH (06:10)
[2023-11-17 07:22] LABS: BASO % 0.1 % (0-2.0); HEMATOCRIT 32.9 % (32.4-45.2); HEMOGLOBIN 10.9 GM/dL (10.7-15.3); LYMPH % 6.7 % (8-40); MCH 35.7 pg (25.7-33.7); MCHC 33.2 g/dl (32.0-36.0); MEAN CELL VOLUME 107.5 fl (80-96); MEAN PLT VOLUME 8.1 fl (7.5-11.1); MONO % 8.6 % (3.8-10.2); NEUT % 84.6 % (42.8-82.8); PLATELET COUNT 248 10^3/uL (134-434); RBC 3.06 M/mm3 (3.60-5.2); RDW 15.3 % (11.6-15.6); WHITE BLOOD COUNT 12.1 K/mm3 (4.0-10.0)
[2023-11-17 07:52] LABS: CALCIUM 9.4 mg/dL (8.5-10.1)
[2023-11-17 07:53] LABS: BLOOD UREA NITROGEN 27.5 mg/dL (7-18); MAGNESIUM 2.5 mg/dL (1.8-2.4)
[2023-11-17 07:56] LABS: CREATININE 0.5 mg/dL (0.55-1.3)
[2023-11-17 07:58] LABS: BILIRUBIN,TOTAL 0.4 mg/dL (0.2-1); TOT PROT 6.8 g/dl (6.4-8.2)
[2023-11-17] MEDS: ALBUTEROL SO4 2.5/IPRATROPIUM 0.5 INH SOL 3 ML VIAL.NEB. NEB SCH ×4 (11:03→20:22)
[2023-11-17] MEDS: HEPARIN NA (PORCINE) 5,000 UNITS/ML 1ML VIAL SQ SCH ×2 (11:04→21:22)
[2023-11-17] MEDS: levETIRAcetam 500 MG/5 ML ORAL SOLUTION (UNIT-DOSE CUPS) PO SCH (11:04)
[2023-11-17] MEDS: CALCIUM 500MG/VIT-D 200 UNITS COMBO TABLET (FP) GT SCH (11:05)
[2023-11-17] MEDS: FAMOTIDINE 20 MG/2.5 ML ORAL LIQUID GT SCH ×2 (11:05→21:23)
[2023-11-17] MEDS: CHOLECALCIFEROL (VIT D3) 1,000 UNIT (25 MCG) TABLET GT SCH ×2 (11:06→21:57)
[2023-11-17] MEDS: ASCORBIC ACID 500 MG/5 ML UNIT DOSE CUP GT SCH (11:06)
[2023-11-17] MEDS: FLUTICASONE PROP 0.05% 16 GM NASAL SPRAY NS SCH (12:50)
[2023-11-17] MEDS: TETRAHYDROZOLINE HCL EYE DROPS OU SCH (12:50)
[2023-11-17] MEDS: MAGNESIUM HYDROX 2400MG/30ML ORAL SUSPENSION 30 ML CUP GT SCH (12:50)
[2023-11-17] MEDS ORDERED: FUROSEMIDE 40 MG/4 ML INJECTABLE VIAL IVPUSH ONE (13:30)
[2023-11-17] MEDS ORDERED: FUROSEMIDE 40 MG/4 ML INJECTABLE VIAL ONE (13:42)
[2023-11-17] MEDS: SCOPOLAMINE HYDROBROMIDE 1 PATCH PATCH.TD72 TD SCH (13:43)
[2023-11-17] MEDS ORDERED: AMINO ACIDS 4.25%/D5W 1,000 ML IV SCH (16:15)
[2023-11-17] MEDS: ARTIFICIAL TEARS OPHTHALMIC DROPS OU SCH (21:22)
[2023-11-17] MEDS: levETIRAcetam 500 MG/5 ML INJECTION VIAL IVPB SCH (21:56)
[2023-11-18] MEDS: CLINDAMYCIN 600MG PREMIX IVPB 600 MG/50 ML BAG IVPB SCH ×3 (01:55→17:01)
[2023-11-18] MEDS: AZTREONAM 1 GM in DEXTROSE 5%-WATER - 50 ML IVPB SCH ×3 (01:55→17:01)
[2023-11-18] MEDS: methylPREDNISolone NA SUCC 40 MG/1 ML VIAL IVPUSH SCH ×3 (01:55→18:27)
[2023-11-18] MEDS: URSODIOL 300 MG CAPSULE NR SCH ×3 (05:05→21:32)
[2023-11-18] MEDS: LEVOTHYROXINE NA 100 MCG TABLET (FP) GT SCH (06:20)
[2023-11-18] MEDS: ALBUTEROL SO4 2.5/IPRATROPIUM 0.5 INH SOL 3 ML VIAL.NEB. NEB SCH ×4 (07:31→19:57)
[2023-11-18 08:45] LABS: HEMATOCRIT 31.9 % (32.4-45.2); MCH 36.8 pg (25.7-33.7); MCHC 34.5 g/dl (32.0-36.0); MEAN CELL VOLUME 106.6 fl (80-96); MEAN PLT VOLUME 8.1 fl (7.5-11.1); PLATELET COUNT 245 10^3/uL (134-434); RBC 2.99 M/mm3 (3.60-5.2); RDW 14.7 % (11.6-15.6); WHITE BLOOD COUNT 7.8 K/mm3 (4.0-10.0)
[2023-11-18 08:57] LABS: POTASSIUM 4.2 mmol/L (3.5-5.1)
[2023-11-18 09:09] LABS: TOT PROT 6.9 g/dl (6.4-8.2)
[2023-11-18 09:13] LABS: BLOOD UREA NITROGEN 33.8 mg/dL (7-18)
[2023-11-18 09:14] LABS: ALBUMIN 2.9 g/dl (3.4-5.0); MAGNESIUM 2.4 mg/dL (1.8-2.4)
[2023-11-18 09:16] LABS: CREATININE 0.5 mg/dL (0.55-1.3)
[2023-11-18 09:18] LABS: BILIRUBIN,TOTAL 0.3 mg/dL (0.2-1)
[2023-11-18] MEDS: ASCORBIC ACID 500 MG/5 ML UNIT DOSE CUP GT SCH (09:31)
[2023-11-18] MEDS: CALCIUM 500MG/VIT-D 200 UNITS COMBO TABLET (FP) GT SCH (09:31)
[2023-11-18] MEDS: MAGNESIUM HYDROX 2400MG/30ML ORAL SUSPENSION 30 ML CUP GT SCH (09:31)
[2023-11-18] MEDS: CHOLECALCIFEROL (VIT D3) 1,000 UNIT (25 MCG) TABLET GT SCH ×2 (09:31→21:32)
[2023-11-18] MEDS: FAMOTIDINE 20 MG/2.5 ML ORAL LIQUID GT SCH (09:32)
[2023-11-18] MEDS: HEPARIN NA (PORCINE) 5,000 UNITS/ML 1ML VIAL SQ SCH ×2 (09:32→21:32)
[2023-11-18] MEDS: levETIRAcetam 500 MG/5 ML ORAL SOLUTION (UNIT-DOSE CUPS) PO SCH ×2 (11:15→21:31)
[2023-11-18] MEDS: FLUTICASONE PROP 0.05% 16 GM NASAL SPRAY NS SCH (11:16)
[2023-11-18] MEDS: TETRAHYDROZOLINE HCL EYE DROPS OU SCH (11:24)
[2023-11-18] MEDS: levETIRAcetam 500 MG/5 ML INJECTION VIAL IVPB SCH (11:25)
[2023-11-18 12:04] LABS: ANISOCYTOSIS 2+; MACROCYTOSIS 2+
[2023-11-18] MEDS: NYSTATIN POWDER 100,000 UNITS/GM - 15 GM TOPICAL POWDER TP SCH ×2 (17:59→21:32)
[2023-11-18] MEDS: ARTIFICIAL TEARS OPHTHALMIC DROPS OU SCH (21:33)
[2023-11-18] MEDS ORDERED: AZTREONAM 1 GM VIAL (RESTRICTED TO ID) ONE (22:40)
[2023-11-18] MEDS: BACITRACIN ZINC 15 GM TUBE TOPICAL OINTMENT TP SCH (22:46)
[2023-11-18] MEDS: MINERAL OIL/PET HY-PHL TOPICAL OINTMENT 454 GM JAR TP SCH (23:13)
[2023-11-19] MEDS: CLINDAMYCIN 600MG PREMIX IVPB 600 MG/50 ML BAG IVPB SCH ×3 (01:05→17:32)
[2023-11-19] MEDS: AZTREONAM 1 GM in DEXTROSE 5%-WATER - 50 ML IVPB SCH ×3 (01:05→17:18)
[2023-11-19] MEDS: methylPREDNISolone NA SUCC 40 MG/1 ML VIAL IVPUSH SCH ×3 (01:05→17:32)
[2023-11-19] MEDS: URSODIOL 300 MG CAPSULE NR SCH ×3 (06:14→22:35)
[2023-11-19] MEDS: LEVOTHYROXINE NA 100 MCG TABLET (FP) GT SCH (06:14)
[2023-11-19] MEDS: ALBUTEROL SO4 2.5/IPRATROPIUM 0.5 INH SOL 3 ML VIAL.NEB. NEB SCH ×4 (07:28→20:04)
[2023-11-19 08:10] LABS: HEMATOCRIT 29.7 % (32.4-45.2); HEMOGLOBIN 10.3 GM/dL (10.7-15.3); MCH 36.6 pg (25.7-33.7); MCHC 34.7 g/dl (32.0-36.0); MEAN CELL VOLUME 105.4 fl (80-96); MEAN PLT VOLUME 7.8 fl (7.5-11.1); PLATELET COUNT 236 10^3/uL (134-434); RBC 2.81 M/mm3 (3.60-5.2); RDW 14.6 % (11.6-15.6); WHITE BLOOD COUNT 6.2 K/mm3 (4.0-10.0)
[2023-11-19 08:23] LABS: CHLORIDE 104 mmol/L (98-107); POTASSIUM 3.9 mmol/L (3.5-5.1); SODIUM 139 mmol/L (136-145)
[2023-11-19 08:25] LABS: CALCIUM 9.1 mg/dL (8.5-10.1)
[2023-11-19 08:26] LABS: ALBUMIN 2.5 g/dl (3.4-5.0); ANION GAP 2 mmol/L (4-13); BLOOD UREA NITROGEN 27.4 mg/dL (7-18); CO2 33 mmol/L (21-32); GLUCOSE,RANDOM 151 mg/dL (74-106); MAGNESIUM 2.1 mg/dL (1.8-2.4)
[2023-11-19 08:29] LABS: CREATININE 0.4 mg/dL (0.55-1.3); SGOT/AST 23 U/L (15-37); SGPT/ALT 67 U/L (13-61)
[2023-11-19 08:30] LABS: BILIRUBIN,TOTAL < 0.1 mg/dL (0.2-1); TOT PROT 6.3 g/dl (6.4-8.2)
[2023-11-19 08:31] LABS: ALK PHOS 123 U/L (45-117)
[2023-11-19 09:39] LABS: MACROCYTOSIS 1+
[2023-11-19] MEDS: ASCORBIC ACID 500 MG/5 ML UNIT DOSE CUP GT SCH (11:35)
[2023-11-19] MEDS: CHOLECALCIFEROL (VIT D3) 1,000 UNIT (25 MCG) TABLET GT SCH ×2 (11:35→22:22)
[2023-11-19] MEDS: CALCIUM 500MG/VIT-D 200 UNITS COMBO TABLET (FP) GT SCH (11:35)
[2023-11-19] MEDS: BACITRACIN ZINC 15 GM TUBE TOPICAL OINTMENT TP SCH ×2 (11:36→22:22)
[2023-11-19] MEDS: MINERAL OIL/PET HY-PHL TOPICAL OINTMENT 454 GM JAR TP SCH ×2 (11:36→22:23)
[2023-11-19] MEDS: TETRAHYDROZOLINE HCL EYE DROPS OU SCH (11:36)
[2023-11-19] MEDS: HEPARIN NA (PORCINE) 5,000 UNITS/ML 1ML VIAL SQ SCH ×2 (11:37→22:22)
[2023-11-19] MEDS: FLUTICASONE PROP 0.05% 16 GM NASAL SPRAY NS SCH (11:37)
[2023-11-19] MEDS: levETIRAcetam 500 MG/5 ML ORAL SOLUTION (UNIT-DOSE CUPS) PO SCH ×2 (11:37→22:21)
[2023-11-19] MEDS: NYSTATIN POWDER 100,000 UNITS/GM - 15 GM TOPICAL POWDER TP SCH ×2 (11:38→22:25)
[2023-11-19] MEDS: ARTIFICIAL TEARS OPHTHALMIC DROPS OU SCH (23:44)
[2023-11-20] MEDS: AZTREONAM 1 GM in DEXTROSE 5%-WATER - 50 ML IVPB SCH ×3 (02:23→17:32)
[2023-11-20] MEDS: methylPREDNISolone NA SUCC 40 MG/1 ML VIAL IVPUSH SCH ×3 (02:24→17:31)
[2023-11-20] MEDS: CLINDAMYCIN 600MG PREMIX IVPB 600 MG/50 ML BAG IVPB SCH ×3 (03:42→18:06)
[2023-11-20] MEDS: LEVOTHYROXINE NA 100 MCG TABLET (FP) GT SCH (06:34)
[2023-11-20] MEDS: URSODIOL 300 MG CAPSULE NR SCH ×3 (06:34→21:29)
[2023-11-20] MEDS: ALBUTEROL SO4 2.5/IPRATROPIUM 0.5 INH SOL 3 ML VIAL.NEB. NEB SCH ×4 (07:35→20:15)
[2023-11-20 08:36] LABS: HEMOGLOBIN 10.5 GM/dL (10.7-15.3); MCH 35.8 pg (25.7-33.7); MCHC 33.9 g/dl (32.0-36.0); MEAN CELL VOLUME 105.7 fl (80-96); PLATELET COUNT 269 10^3/uL (134-434); RBC 2.93 M/mm3 (3.60-5.2); RDW 14.2 % (11.6-15.6)
[2023-11-20 08:48] LABS: POTASSIUM 4.2 mmol/L (3.5-5.1)
[2023-11-20 08:59] LABS: CALCIUM 9.3 mg/dL (8.5-10.1)
[2023-11-20 09:00] LABS: ALBUMIN 2.7 g/dl (3.4-5.0); BLOOD UREA NITROGEN 29.9 mg/dL (7-18)
[2023-11-20 09:03] LABS: CREATININE 0.4 mg/dL (0.55-1.3)
[2023-11-20 09:05] LABS: BILIRUBIN,TOTAL 0.1 mg/dL (0.2-1); TOT PROT 6.5 g/dl (6.4-8.2)
[2023-11-20] MEDS: CHOLECALCIFEROL (VIT D3) 1,000 UNIT (25 MCG) TABLET GT SCH ×2 (09:40→21:31)
[2023-11-20] MEDS: CALCIUM 500MG/VIT-D 200 UNITS COMBO TABLET (FP) GT SCH (09:40)
[2023-11-20] MEDS: levETIRAcetam 500 MG/5 ML ORAL SOLUTION (UNIT-DOSE CUPS) PO SCH ×2 (09:40→21:27)
[2023-11-20] MEDS: HEPARIN NA (PORCINE) 5,000 UNITS/ML 1ML VIAL SQ SCH ×2 (09:40→21:27)
[2023-11-20] MEDS: ASCORBIC ACID 500 MG/5 ML UNIT DOSE CUP GT SCH (09:40)
[2023-11-20] MEDS: MINERAL OIL/PET HY-PHL TOPICAL OINTMENT 454 GM JAR TP SCH ×2 (09:42→21:30)
[2023-11-20] MEDS: BACITRACIN ZINC 15 GM TUBE TOPICAL OINTMENT TP SCH ×2 (09:42→21:31)
[2023-11-20] MEDS: NYSTATIN POWDER 100,000 UNITS/GM - 15 GM TOPICAL POWDER TP SCH ×2 (09:43→21:31)
[2023-11-20] MEDS: FLUTICASONE PROP 0.05% 16 GM NASAL SPRAY NS SCH (09:43)
[2023-11-20] MEDS: TETRAHYDROZOLINE HCL EYE DROPS OU SCH (09:44)
[2023-11-20 10:24] LABS: ANISOCYTOSIS 1+; MACROCYTOSIS 0
[2023-11-20] MEDS ORDERED: BISACODYL 10 MG SUPP.RECT PR ONE (12:30)
[2023-11-20] MEDS: SCOPOLAMINE HYDROBROMIDE 1 PATCH PATCH.TD72 TD SCH (13:10)
[2023-11-20] MEDS: ARTIFICIAL TEARS OPHTHALMIC DROPS OU SCH (21:30)
[2023-11-21] MEDS: methylPREDNISolone NA SUCC 40 MG/1 ML VIAL IVPUSH SCH ×3 (01:03→17:26)
[2023-11-21] MEDS: AZTREONAM 1 GM in DEXTROSE 5%-WATER - 50 ML IVPB SCH ×3 (01:04→17:25)
[2023-11-21] MEDS: CLINDAMYCIN 600MG PREMIX IVPB 600 MG/50 ML BAG IVPB SCH ×3 (02:17→18:06)
[2023-11-21] MEDS: URSODIOL 300 MG CAPSULE NR SCH ×3 (05:58→22:10)
[2023-11-21] MEDS: LEVOTHYROXINE NA 100 MCG TABLET (FP) GT SCH (06:05)
[2023-11-21] MEDS: ALBUTEROL SO4 2.5/IPRATROPIUM 0.5 INH SOL 3 ML VIAL.NEB. NEB SCH ×4 (08:15→20:05)
[2023-11-21] MEDS ORDERED: AZTREONAM 1 GM VIAL (RESTRICTED TO ID) ONE (08:55)
[2023-11-21] MEDS: ASCORBIC ACID 500 MG/5 ML UNIT DOSE CUP GT SCH (09:02)
[2023-11-21] MEDS: levETIRAcetam 500 MG/5 ML ORAL SOLUTION (UNIT-DOSE CUPS) PO SCH ×2 (09:02→22:10)
[2023-11-21 09:03] LABS: HEMATOCRIT 30.8 % (32.4-45.2); HEMOGLOBIN 10.5 GM/dL (10.7-15.3); MCH 35.9 pg (25.7-33.7); MCHC 33.9 g/dl (32.0-36.0); MEAN CELL VOLUME 105.8 fl (80-96); MEAN PLT VOLUME 7.9 fl (7.5-11.1); PLATELET COUNT 276 10^3/uL (134-434); RBC 2.91 M/mm3 (3.60-5.2); WHITE BLOOD COUNT 9.5 K/mm3 (4.0-10.0)
[2023-11-21] MEDS: CHOLECALCIFEROL (VIT D3) 1,000 UNIT (25 MCG) TABLET GT SCH ×2 (09:03→22:11)
[2023-11-21] MEDS: CALCIUM 500MG/VIT-D 200 UNITS COMBO TABLET (FP) GT SCH (09:03)
[2023-11-21] MEDS: HEPARIN NA (PORCINE) 5,000 UNITS/ML 1ML VIAL SQ SCH ×2 (09:03→22:11)
[2023-11-21] MEDS: NYSTATIN POWDER 100,000 UNITS/GM - 15 GM TOPICAL POWDER TP SCH ×2 (09:05→22:12)
[2023-11-21] MEDS: TETRAHYDROZOLINE HCL EYE DROPS OU SCH (09:05)
[2023-11-21] MEDS: BACITRACIN ZINC 15 GM TUBE TOPICAL OINTMENT TP SCH ×2 (09:05→22:12)
[2023-11-21] MEDS: FLUTICASONE PROP 0.05% 16 GM NASAL SPRAY NS SCH (09:06)
[2023-11-21] MEDS: MINERAL OIL/PET HY-PHL TOPICAL OINTMENT 454 GM JAR TP SCH ×2 (09:06→22:11)
[2023-11-21 09:39] LABS: CHLORIDE 103 mmol/L (98-107); SODIUM 138 mmol/L (136-145)
[2023-11-21 09:49] LABS: BLOOD UREA NITROGEN 25.1 mg/dL (7-18)
[2023-11-21 09:50] LABS: ANISOCYTOSIS 2+; MACROCYTOSIS 2+
[2023-11-21 09:52] LABS: ALBUMIN 2.8 g/dl (3.4-5.0); ANION GAP 7 mmol/L (4-13); CO2 28 mmol/L (21-32); GLUCOSE,RANDOM 131 mg/dL (74-106); MAGNESIUM 1.9 mg/dL (1.8-2.4)
[2023-11-21 09:55] LABS: CREATININE 0.4 mg/dL (0.55-1.3); SGOT/AST 23 U/L (15-37)
[2023-11-21 09:56] LABS: BILIRUBIN,TOTAL < 0.1 mg/dL (0.2-1); SGPT/ALT 53 U/L (13-61)
[2023-11-21 09:57] LABS: TOT PROT 6.5 g/dl (6.4-8.2)
[2023-11-21 09:58] LABS: ALK PHOS 125 U/L (45-117); CALCIUM 9.4 mg/dL (8.5-10.1)
[2023-11-21] MEDS: ARTIFICIAL TEARS OPHTHALMIC DROPS OU SCH (22:12)
[2023-11-22] MEDS: methylPREDNISolone NA SUCC 40 MG/1 ML VIAL IVPUSH SCH ×3 (01:24→18:00)
[2023-11-22] MEDS: CLINDAMYCIN 600MG PREMIX IVPB 600 MG/50 ML BAG IVPB SCH ×3 (01:24→17:20)
[2023-11-22] MEDS: AZTREONAM 1 GM in DEXTROSE 5%-WATER - 50 ML IVPB SCH ×3 (02:09→18:00)
[2023-11-22] MEDS: LEVOTHYROXINE NA 100 MCG TABLET (FP) GT SCH (06:01)
[2023-11-22] MEDS: URSODIOL 300 MG CAPSULE NR SCH ×3 (06:01→21:00)
[2023-11-22] MEDS: ALBUTEROL SO4 2.5/IPRATROPIUM 0.5 INH SOL 3 ML VIAL.NEB. NEB SCH ×4 (07:35→20:32)
[2023-11-22 09:25] LABS: BASO % 0.2 % (0-2.0); HEMOGLOBIN 10.5 GM/dL (10.7-15.3); LYMPH % 18.6 % (8-40); MCH 35.8 pg (25.7-33.7); MEAN CELL VOLUME 105.4 fl (80-96); MEAN PLT VOLUME 7.4 fl (7.5-11.1); MONO % 10.4 % (3.8-10.2); NEUT % 70.8 % (42.8-82.8); PLATELET COUNT 274 10^3/uL (134-434); RBC 2.94 M/mm3 (3.60-5.2); RDW 14.3 % (11.6-15.6); WHITE BLOOD COUNT 11.8 K/mm3 (4.0-10.0)
[2023-11-22 09:40] LABS: POTASSIUM 4.1 mmol/L (3.5-5.1)
[2023-11-22 09:50] LABS: ALBUMIN 2.8 g/dl (3.4-5.0); BLOOD UREA NITROGEN 25.6 mg/dL (7-18); CALCIUM 9.5 mg/dL (8.5-10.1); MAGNESIUM 2.1 mg/dL (1.8-2.4)
[2023-11-22 09:53] LABS: CREATININE 0.5 mg/dL (0.55-1.3)
[2023-11-22 09:55] LABS: BILIRUBIN,TOTAL 0.5 mg/dL (0.2-1); TOT PROT 6.6 g/dl (6.4-8.2)
[2023-11-22 10:00] LABS: ANISOCYTOSIS 0; MACROCYTOSIS 1+
[2023-11-22] MEDS: levETIRAcetam 500 MG/5 ML ORAL SOLUTION (UNIT-DOSE CUPS) PO SCH ×2 (10:25→21:02)
[2023-11-22] MEDS: ASCORBIC ACID 500 MG/5 ML UNIT DOSE CUP GT SCH (10:25)
[2023-11-22] MEDS: HEPARIN NA (PORCINE) 5,000 UNITS/ML 1ML VIAL SQ SCH ×2 (10:25→21:00)
[2023-11-22] MEDS: CALCIUM 500MG/VIT-D 200 UNITS COMBO TABLET (FP) GT SCH (10:25)
[2023-11-22] MEDS: CHOLECALCIFEROL (VIT D3) 1,000 UNIT (25 MCG) TABLET GT SCH ×2 (10:25→21:02)
[2023-11-22] MEDS: TETRAHYDROZOLINE HCL EYE DROPS OU SCH (10:26)
[2023-11-22] MEDS: FLUTICASONE PROP 0.05% 16 GM NASAL SPRAY NS SCH (10:27)
[2023-11-22] MEDS: BACITRACIN ZINC 15 GM TUBE TOPICAL OINTMENT TP SCH ×2 (10:27→21:01)
[2023-11-22] MEDS: NYSTATIN POWDER 100,000 UNITS/GM - 15 GM TOPICAL POWDER TP SCH ×2 (10:27→21:05)
[2023-11-22] MEDS: MINERAL OIL/PET HY-PHL TOPICAL OINTMENT 454 GM JAR TP SCH ×2 (10:27→21:00)
[2023-11-22] MEDS: ARTIFICIAL TEARS OPHTHALMIC DROPS OU SCH (21:01)
[2023-11-23] MEDS: methylPREDNISolone NA SUCC 40 MG/1 ML VIAL IVPUSH SCH ×2 (01:23→10:36)
[2023-11-23] MEDS: CLINDAMYCIN 600MG PREMIX IVPB 600 MG/50 ML BAG IVPB SCH (01:23)
[2023-11-23] MEDS: AZTREONAM 1 GM in DEXTROSE 5%-WATER - 50 ML IVPB SCH (02:04)
[2023-11-23] MEDS: LEVOTHYROXINE NA 100 MCG TABLET (FP) GT SCH (06:06)
[2023-11-23] MEDS: URSODIOL 300 MG CAPSULE NR SCH ×3 (06:10→22:16)
[2023-11-23] MEDS: ALBUTEROL SO4 2.5/IPRATROPIUM 0.5 INH SOL 3 ML VIAL.NEB. NEB SCH ×4 (08:44→20:00)
[2023-11-23 08:54] LABS: HEMATOCRIT 30.8 % (32.4-45.2); HEMOGLOBIN 10.5 GM/dL (10.7-15.3); MCH 36.2 pg (25.7-33.7); MCHC 34.2 g/dl (32.0-36.0); MEAN CELL VOLUME 105.9 fl (80-96); MEAN PLT VOLUME 7.7 fl (7.5-11.1); PLATELET COUNT 246 10^3/uL (134-434); RBC 2.91 M/mm3 (3.60-5.2); WHITE BLOOD COUNT 10.9 K/mm3 (4.0-10.0)
[2023-11-23 09:04] LABS: POTASSIUM 4.1 mmol/L (3.5-5.1)
[2023-11-23 09:08] LABS: ALBUMIN 2.8 g/dl (3.4-5.0); BLOOD UREA NITROGEN 24.8 mg/dL (7-18); CALCIUM 9.4 mg/dL (8.5-10.1); MAGNESIUM 2.3 mg/dL (1.8-2.4)
[2023-11-23 09:12] LABS: CREATININE 0.5 mg/dL (0.55-1.3)
[2023-11-23 09:13] LABS: BILIRUBIN,TOTAL 0.2 mg/dL (0.2-1); TOT PROT 6.6 g/dl (6.4-8.2)
[2023-11-23] MEDS: levETIRAcetam 500 MG/5 ML ORAL SOLUTION (UNIT-DOSE CUPS) PO SCH ×2 (10:36→22:15)
[2023-11-23] MEDS: ASCORBIC ACID 500 MG/5 ML UNIT DOSE CUP GT SCH (10:36)
[2023-11-23] MEDS: CALCIUM 500MG/VIT-D 200 UNITS COMBO TABLET (FP) GT SCH (10:37)
[2023-11-23] MEDS: CHOLECALCIFEROL (VIT D3) 1,000 UNIT (25 MCG) TABLET GT SCH ×2 (10:37→22:16)
[2023-11-23] MEDS: HEPARIN NA (PORCINE) 5,000 UNITS/ML 1ML VIAL SQ SCH ×2 (10:37→22:16)
[2023-11-23] MEDS: NYSTATIN POWDER 100,000 UNITS/GM - 15 GM TOPICAL POWDER TP SCH ×2 (10:39→22:17)
[2023-11-23] MEDS: BACITRACIN ZINC 15 GM TUBE TOPICAL OINTMENT TP SCH ×2 (10:39→22:16)
[2023-11-23] MEDS: TETRAHYDROZOLINE HCL EYE DROPS OU SCH (10:41)
[2023-11-23] MEDS: FLUTICASONE PROP 0.05% 16 GM NASAL SPRAY NS SCH (10:41)
[2023-11-23] MEDS: MINERAL OIL/PET HY-PHL TOPICAL OINTMENT 454 GM JAR TP SCH ×2 (10:43→22:16)
[2023-11-23 10:51] LABS: ANISOCYTOSIS 1+; MACROCYTOSIS 1+
[2023-11-23] MEDS: SCOPOLAMINE HYDROBROMIDE 1 PATCH PATCH.TD72 TD SCH (15:35)
[2023-11-23] MEDS: ARTIFICIAL TEARS OPHTHALMIC DROPS OU SCH (22:16)
[2023-11-24] MEDS: LEVOTHYROXINE NA 100 MCG TABLET (FP) GT SCH (06:00)
[2023-11-24] MEDS: URSODIOL 300 MG CAPSULE NR SCH ×3 (06:00→21:41)
[2023-11-24] MEDS: ALBUTEROL SO4 2.5/IPRATROPIUM 0.5 INH SOL 3 ML VIAL.NEB. NEB SCH ×4 (07:25→20:17)
[2023-11-24 09:28] LABS: HEMATOCRIT 31.9 % (32.4-45.2); MCHC 34.4 g/dl (32.0-36.0); MEAN CELL VOLUME 107.5 fl (80-96); MEAN PLT VOLUME 7.6 fl (7.5-11.1); PLATELET COUNT 215 10^3/uL (134-434); RBC 2.97 M/mm3 (3.60-5.2); RDW 14.3 % (11.6-15.6); WHITE BLOOD COUNT 13.5 K/mm3 (4.0-10.0)
[2023-11-24] MEDS: CALCIUM 500MG/VIT-D 200 UNITS COMBO TABLET (FP) GT SCH (10:00)
[2023-11-24] MEDS: CHOLECALCIFEROL (VIT D3) 1,000 UNIT (25 MCG) TABLET GT SCH ×2 (10:00→21:44)
[2023-11-24 10:26] LABS: POTASSIUM 3.7 mmol/L (3.5-5.1)
[2023-11-24] MEDS: methylPREDNISolone NA SUCC 40 MG/1 ML VIAL IVPUSH SCH (10:30)
[2023-11-24] MEDS: levETIRAcetam 500 MG/5 ML ORAL SOLUTION (UNIT-DOSE CUPS) PO SCH ×2 (10:30→21:41)
[2023-11-24] MEDS: HEPARIN NA (PORCINE) 5,000 UNITS/ML 1ML VIAL SQ SCH ×2 (10:30→21:41)
[2023-11-24] MEDS: ASCORBIC ACID 500 MG/5 ML UNIT DOSE CUP GT SCH (10:30)
[2023-11-24 10:41] LABS: ANISOCYTOSIS 2+
[2023-11-24 10:51] LABS: ALBUMIN 3.2 g/dl (3.4-5.0)
[2023-11-24 10:54] LABS: BLOOD UREA NITROGEN 34.4 mg/dL (7-18); CALCIUM 9.2 mg/dL (8.5-10.1)
[2023-11-24 10:56] LABS: CREATININE 0.5 mg/dL (0.55-1.3)
[2023-11-24 10:58] LABS: TOT PROT 6.6 g/dl (6.4-8.2)
[2023-11-24 11:01] LABS: BILIRUBIN,TOTAL 0.4 mg/dL (0.2-1)
[2023-11-24] MEDS: FLUTICASONE PROP 0.05% 16 GM NASAL SPRAY NS SCH (11:58)
[2023-11-24] MEDS: BACITRACIN ZINC 15 GM TUBE TOPICAL OINTMENT TP SCH ×2 (11:58→21:43)
[2023-11-24] MEDS: TETRAHYDROZOLINE HCL EYE DROPS OU SCH (11:58)
[2023-11-24] MEDS: NYSTATIN POWDER 100,000 UNITS/GM - 15 GM TOPICAL POWDER TP SCH ×2 (11:59→21:43)
[2023-11-24] MEDS: MINERAL OIL/PET HY-PHL TOPICAL OINTMENT 454 GM JAR TP SCH ×2 (12:20→21:41)
[2023-11-24] MEDS: ARTIFICIAL TEARS OPHTHALMIC DROPS OU SCH (21:42)
[2023-11-25] MEDS: URSODIOL 300 MG CAPSULE NR SCH ×3 (05:43→21:21)
[2023-11-25] MEDS: LEVOTHYROXINE NA 100 MCG TABLET (FP) GT SCH (06:40)
[2023-11-25] MEDS: ALBUTEROL SO4 2.5/IPRATROPIUM 0.5 INH SOL 3 ML VIAL.NEB. NEB SCH ×4 (07:42→20:05)
[2023-11-25] MEDS: levETIRAcetam 500 MG/5 ML ORAL SOLUTION (UNIT-DOSE CUPS) PO SCH (09:58)
[2023-11-25] MEDS: ASCORBIC ACID 500 MG/5 ML UNIT DOSE CUP GT SCH (09:59)
[2023-11-25] MEDS: methylPREDNISolone NA SUCC 40 MG/1 ML VIAL IVPUSH SCH ×2 (09:59→11:47)
[2023-11-25] MEDS: CHOLECALCIFEROL (VIT D3) 1,000 UNIT (25 MCG) TABLET GT SCH ×2 (09:59→21:21)
[2023-11-25] MEDS: NYSTATIN POWDER 100,000 UNITS/GM - 15 GM TOPICAL POWDER TP SCH ×2 (10:01→21:25)
[2023-11-25] MEDS: CALCIUM 500MG/VIT-D 200 UNITS COMBO TABLET (FP) GT SCH (10:01)
[2023-11-25] MEDS: HEPARIN NA (PORCINE) 5,000 UNITS/ML 1ML VIAL SQ SCH ×2 (10:02→21:21)
[2023-11-25] MEDS: BACITRACIN ZINC 15 GM TUBE TOPICAL OINTMENT TP SCH ×2 (10:02→21:22)
[2023-11-25] MEDS: FLUTICASONE PROP 0.05% 16 GM NASAL SPRAY NS SCH (10:02)
[2023-11-25] MEDS: TETRAHYDROZOLINE HCL EYE DROPS OU SCH (10:03)
[2023-11-25] MEDS: MINERAL OIL/PET HY-PHL TOPICAL OINTMENT 454 GM JAR TP SCH ×2 (10:04→21:24)
[2023-11-25 10:18] LABS: POTASSIUM 4.6 mmol/L (3.5-5.1)
[2023-11-25 10:20] LABS: ALBUMIN 2.7 g/dl (3.4-5.0); BLOOD UREA NITROGEN 29.1 mg/dL (7-18); CALCIUM 9.2 mg/dL (8.5-10.1)
[2023-11-25 10:23] LABS: CREATININE 0.5 mg/dL (0.55-1.3)
[2023-11-25 10:25] LABS: BILIRUBIN,TOTAL 0.2 mg/dL (0.2-1); TOT PROT 6.1 g/dl (6.4-8.2)
[2023-11-25 13:21] LABS: HEMATOCRIT 29.9 % (32.4-45.2); MCH 35.1 pg (25.7-33.7); MCHC 33.4 g/dl (32.0-36.0); MEAN CELL VOLUME 105.2 fl (80-96); MEAN PLT VOLUME 7.7 fl (7.5-11.1); PLATELET COUNT 184 10^3/uL (134-434); RBC 2.84 M/mm3 (3.60-5.2); RDW 14.2 % (11.6-15.6); WHITE BLOOD COUNT 11.7 K/mm3 (4.0-10.0)
[2023-11-25 13:50] LABS: ANISOCYTOSIS 0; MACROCYTOSIS 1+
[2023-11-25] MEDS: levETIRAcetam 500 MG/5 ML ORAL SOLUTION (UNIT-DOSE CUPS) GT SCH (21:21)
[2023-11-25] MEDS: ARTIFICIAL TEARS OPHTHALMIC DROPS OU SCH (21:23)
[2023-11-26] MEDS: URSODIOL 300 MG CAPSULE NR SCH ×3 (06:02→22:30)
[2023-11-26] MEDS: LEVOTHYROXINE NA 100 MCG TABLET (FP) GT SCH (06:02)
[2023-11-26] MEDS: ALBUTEROL SO4 2.5/IPRATROPIUM 0.5 INH SOL 3 ML VIAL.NEB. NEB SCH ×4 (07:10→20:20)
[2023-11-26 09:39] LABS: HEMATOCRIT 30.2 % (32.4-45.2); HEMOGLOBIN 9.9 GM/dL (10.7-15.3); MCH 34.6 pg (25.7-33.7); MCHC 32.7 g/dl (32.0-36.0); MEAN PLT VOLUME 7.6 fl (7.5-11.1); PLATELET COUNT 188 10^3/uL (134-434); RBC 2.85 M/mm3 (3.60-5.2); RDW 13.9 % (11.6-15.6); WHITE BLOOD COUNT 16.1 K/mm3 (4.0-10.0)
[2023-11-26 09:55] LABS: POTASSIUM 3.2 mmol/L (3.5-5.1)
[2023-11-26 09:59] LABS: CALCIUM 9.1 mg/dL (8.5-10.1)
[2023-11-26 10:01] LABS: ALBUMIN 2.8 g/dl (3.4-5.0); BLOOD UREA NITROGEN 24.8 mg/dL (7-18)
[2023-11-26 10:03] LABS: CREATININE 0.4 mg/dL (0.55-1.3)
[2023-11-26 10:05] LABS: BILIRUBIN,TOTAL 0.1 mg/dL (0.2-1); TOT PROT 6.1 g/dl (6.4-8.2)
[2023-11-26 10:10] LABS: ANISOCYTOSIS 0; MACROCYTOSIS 1+
[2023-11-26] MEDS: MINERAL OIL/PET HY-PHL TOPICAL OINTMENT 454 GM JAR TP SCH ×2 (11:08→22:32)
[2023-11-26] MEDS: NYSTATIN POWDER 100,000 UNITS/GM - 15 GM TOPICAL POWDER TP SCH ×2 (11:08→22:31)
[2023-11-26] MEDS: BACITRACIN ZINC 15 GM TUBE TOPICAL OINTMENT TP SCH ×2 (11:08→22:32)
[2023-11-26] MEDS: CHOLECALCIFEROL (VIT D3) 1,000 UNIT (25 MCG) TABLET GT SCH ×2 (11:09→22:30)
[2023-11-26] MEDS: methylPREDNISolone NA SUCC 40 MG/1 ML VIAL IVPUSH SCH (11:09)
[2023-11-26] MEDS: ASCORBIC ACID 500 MG/5 ML UNIT DOSE CUP GT SCH (11:09)
[2023-11-26] MEDS: levETIRAcetam 500 MG/5 ML ORAL SOLUTION (UNIT-DOSE CUPS) GT SCH ×2 (11:09→22:30)
[2023-11-26] MEDS: POLYETHYLENE GLYCOL (HEALTHYLAX) 3350 17 GM PACKET GT SCH ×2 (11:10→22:30)
[2023-11-26] MEDS: HEPARIN NA (PORCINE) 5,000 UNITS/ML 1ML VIAL SQ SCH ×2 (11:10→22:30)
[2023-11-26] MEDS: CALCIUM 500MG/VIT-D 200 UNITS COMBO TABLET (FP) GT SCH (11:10)
[2023-11-26] MEDS: FLUTICASONE PROP 0.05% 16 GM NASAL SPRAY NS SCH (11:11)
[2023-11-26] MEDS: TETRAHYDROZOLINE HCL EYE DROPS OU SCH (11:12)
[2023-11-26] MEDS: SCOPOLAMINE HYDROBROMIDE 1 PATCH PATCH.TD72 TD SCH (16:49)
[2023-11-26] MEDS: ARTIFICIAL TEARS OPHTHALMIC DROPS OU SCH (22:31)
[2023-11-27] MEDS: URSODIOL 300 MG CAPSULE NR SCH ×3 (06:29→23:05)
[2023-11-27] MEDS: LEVOTHYROXINE NA 100 MCG TABLET (FP) GT SCH (06:29)
[2023-11-27] MEDS: ALBUTEROL SO4 2.5/IPRATROPIUM 0.5 INH SOL 3 ML VIAL.NEB. NEB SCH ×4 (07:10→20:36)
[2023-11-27 09:18] LABS: HEMOGLOBIN 10.4 GM/dL (10.7-15.3); MCH 37.1 pg (25.7-33.7); MCHC 34.6 g/dl (32.0-36.0); MEAN CELL VOLUME 107.3 fl (80-96); MEAN PLT VOLUME 7.9 fl (7.5-11.1); PLATELET COUNT 183 10^3/uL (134-434); RBC 2.79 M/mm3 (3.60-5.2); RDW 13.9 % (11.6-15.6); WHITE BLOOD COUNT 10.6 K/mm3 (4.0-10.0)
[2023-11-27 09:44] LABS: POTASSIUM 3.8 mmol/L (3.5-5.1)
[2023-11-27] MEDS: CALCIUM 500MG/VIT-D 200 UNITS COMBO TABLET (FP) GT SCH (10:08)
[2023-11-27] MEDS: CHOLECALCIFEROL (VIT D3) 1,000 UNIT (25 MCG) TABLET GT SCH ×2 (10:08→23:12)
[2023-11-27] MEDS: predniSONE 20 MG TABLET (UD) GT SCH (10:08)
[2023-11-27] MEDS: HEPARIN NA (PORCINE) 5,000 UNITS/ML 1ML VIAL SQ SCH ×2 (10:08→23:10)
[2023-11-27] MEDS: ASCORBIC ACID 500 MG/5 ML UNIT DOSE CUP GT SCH (10:09)
[2023-11-27] MEDS: MINERAL OIL/PET HY-PHL TOPICAL OINTMENT 454 GM JAR TP SCH ×2 (10:09→23:03)
[2023-11-27] MEDS: levETIRAcetam 500 MG/5 ML ORAL SOLUTION (UNIT-DOSE CUPS) GT SCH ×2 (10:09→23:11)
[2023-11-27] MEDS: BACITRACIN ZINC 15 GM TUBE TOPICAL OINTMENT TP SCH ×2 (10:09→23:08)
[2023-11-27 10:10] LABS: CALCIUM 9.3 mg/dL (8.5-10.1)
[2023-11-27] MEDS: FLUTICASONE PROP 0.05% 16 GM NASAL SPRAY NS SCH (10:10)
[2023-11-27] MEDS: POLYETHYLENE GLYCOL (HEALTHYLAX) 3350 17 GM PACKET GT SCH ×2 (10:10→23:08)
[2023-11-27 10:11] LABS: ALBUMIN 2.8 g/dl (3.4-5.0); BLOOD UREA NITROGEN 22.3 mg/dL (7-18); MAGNESIUM 2.2 mg/dL (1.8-2.4)
[2023-11-27] MEDS: NYSTATIN POWDER 100,000 UNITS/GM - 15 GM TOPICAL POWDER TP SCH ×2 (10:12→23:12)
[2023-11-27 10:14] LABS: CREATININE 0.4 mg/dL (0.55-1.3)
[2023-11-27 10:15] LABS: BILIRUBIN,TOTAL 0.2 mg/dL (0.2-1); TOT PROT 6.4 g/dl (6.4-8.2)
[2023-11-27] MEDS: TETRAHYDROZOLINE HCL EYE DROPS OU SCH (10:15)
[2023-11-27 10:39] LABS: ANISOCYTOSIS 1+; MACROCYTOSIS 1+
[2023-11-27] MEDS: ARTIFICIAL TEARS OPHTHALMIC DROPS OU SCH (23:05)
[2023-11-28] MEDS: LEVOTHYROXINE NA 100 MCG TABLET (FP) GT SCH (07:27)
[2023-11-28] MEDS: URSODIOL 300 MG CAPSULE NR SCH ×3 (07:27→23:37)
[2023-11-28] MEDS: ALBUTEROL SO4 2.5/IPRATROPIUM 0.5 INH SOL 3 ML VIAL.NEB. NEB SCH ×4 (07:54→20:12)
[2023-11-28 09:12] LABS: HEMATOCRIT 31.2 % (32.4-45.2); HEMOGLOBIN 10.7 GM/dL (10.7-15.3); MCH 36.6 pg (25.7-33.7); MCHC 34.4 g/dl (32.0-36.0); MEAN CELL VOLUME 106.5 fl (80-96); MEAN PLT VOLUME 8.6 fl (7.5-11.1); PLATELET COUNT 174 10^3/uL (134-434); RBC 2.93 M/mm3 (3.60-5.2); RDW 13.8 % (11.6-15.6); WHITE BLOOD COUNT 8.4 K/mm3 (4.0-10.0)
[2023-11-28 09:42] LABS: POTASSIUM 5.1 mmol/L (3.5-5.1)
[2023-11-28 09:55] LABS: ALBUMIN 2.8 g/dl (3.4-5.0); MAGNESIUM 2.1 mg/dL (1.8-2.4)
[2023-11-28 10:00] LABS: BILIRUBIN,TOTAL 0.3 mg/dL (0.2-1); CREATININE 0.4 mg/dL (0.55-1.3)
[2023-11-28 10:02] LABS: BLOOD UREA NITROGEN 23.6 mg/dL (7-18); TOT PROT 6.6 g/dl (6.4-8.2)
[2023-11-28 10:05] LABS: ANISOCYTOSIS 1+; MACROCYTOSIS 0
[2023-11-28] MEDS: FLUTICASONE PROP 0.05% 16 GM NASAL SPRAY NS SCH (10:08)
[2023-11-28] MEDS: BACITRACIN ZINC 15 GM TUBE TOPICAL OINTMENT TP SCH ×2 (10:09→23:38)
[2023-11-28] MEDS: MINERAL OIL/PET HY-PHL TOPICAL OINTMENT 454 GM JAR TP SCH ×2 (10:09→23:38)
[2023-11-28] MEDS: NYSTATIN POWDER 100,000 UNITS/GM - 15 GM TOPICAL POWDER TP SCH ×2 (10:10→23:40)
[2023-11-28] MEDS: predniSONE 20 MG TABLET (UD) GT SCH (10:13)
[2023-11-28] MEDS: CHOLECALCIFEROL (VIT D3) 1,000 UNIT (25 MCG) TABLET GT SCH ×2 (10:13→23:40)
[2023-11-28] MEDS: POLYETHYLENE GLYCOL (HEALTHYLAX) 3350 17 GM PACKET GT SCH ×2 (10:13→23:39)
[2023-11-28] MEDS: CALCIUM 500MG/VIT-D 200 UNITS COMBO TABLET (FP) GT SCH (10:13)
[2023-11-28] MEDS: HEPARIN NA (PORCINE) 5,000 UNITS/ML 1ML VIAL SQ SCH ×2 (10:13→23:39)
[2023-11-28] MEDS: ASCORBIC ACID 500 MG/5 ML UNIT DOSE CUP GT SCH (10:13)
[2023-11-28] MEDS: levETIRAcetam 500 MG/5 ML ORAL SOLUTION (UNIT-DOSE CUPS) GT SCH ×2 (12:15→23:40)
[2023-11-28] MEDS: TETRAHYDROZOLINE HCL EYE DROPS OU SCH (13:46)
[2023-11-28] MEDS ORDERED: SODIUM CHLORIDE 500 ML IV STA (15:22)
[2023-11-28] MEDS: ARTIFICIAL TEARS OPHTHALMIC DROPS OU SCH (23:38)
[2023-11-29] MEDS: URSODIOL 300 MG CAPSULE NR SCH ×3 (05:36→23:09)
[2023-11-29] MEDS: LEVOTHYROXINE NA 100 MCG TABLET (FP) GT SCH (06:29)
[2023-11-29] MEDS: ALBUTEROL SO4 2.5/IPRATROPIUM 0.5 INH SOL 3 ML VIAL.NEB. NEB SCH ×4 (08:53→21:11)
[2023-11-29] MEDS: ASCORBIC ACID 500 MG/5 ML UNIT DOSE CUP GT SCH (10:41)
[2023-11-29] MEDS: CHOLECALCIFEROL (VIT D3) 1,000 UNIT (25 MCG) TABLET GT SCH ×2 (10:41→22:57)
[2023-11-29] MEDS: CALCIUM 500MG/VIT-D 200 UNITS COMBO TABLET (FP) GT SCH (10:41)
[2023-11-29] MEDS: MINERAL OIL/PET HY-PHL TOPICAL OINTMENT 454 GM JAR TP SCH ×2 (10:41→23:09)
[2023-11-29] MEDS: levETIRAcetam 500 MG/5 ML ORAL SOLUTION (UNIT-DOSE CUPS) GT SCH ×2 (10:41→22:57)
[2023-11-29] MEDS: POLYETHYLENE GLYCOL (HEALTHYLAX) 3350 17 GM PACKET GT SCH ×2 (10:42→23:11)
[2023-11-29] MEDS: HEPARIN NA (PORCINE) 5,000 UNITS/ML 1ML VIAL SQ SCH ×2 (10:42→22:57)
[2023-11-29] MEDS: FLUTICASONE PROP 0.05% 16 GM NASAL SPRAY NS SCH (10:43)
[2023-11-29] MEDS: BACITRACIN ZINC 15 GM TUBE TOPICAL OINTMENT TP SCH ×2 (10:43→22:58)
[2023-11-29] MEDS: TETRAHYDROZOLINE HCL EYE DROPS OU SCH (10:44)
[2023-11-29] MEDS: predniSONE 20 MG TABLET (UD) GT SCH (10:48)
[2023-11-29] MEDS: NYSTATIN POWDER 100,000 UNITS/GM - 15 GM TOPICAL POWDER TP SCH ×2 (10:53→23:11)
[2023-11-29] MEDS: SCOPOLAMINE HYDROBROMIDE 1 PATCH PATCH.TD72 TD SCH (14:45)
[2023-11-29] MEDS: ARTIFICIAL TEARS OPHTHALMIC DROPS OU SCH (23:09)
[2023-11-30] MEDS: URSODIOL 300 MG CAPSULE NR SCH ×2 (06:09→13:30)
[2023-11-30] MEDS: LEVOTHYROXINE NA 100 MCG TABLET (FP) GT SCH (06:09)
[2023-11-30] MEDS: ALBUTEROL SO4 2.5/IPRATROPIUM 0.5 INH SOL 3 ML VIAL.NEB. NEB SCH ×2 (07:51→11:20)
[2023-11-30] MEDS: CALCIUM 500MG/VIT-D 200 UNITS COMBO TABLET (FP) GT SCH (09:56)
[2023-11-30] MEDS: MINERAL OIL/PET HY-PHL TOPICAL OINTMENT 454 GM JAR TP SCH (09:56)
[2023-11-30] MEDS: levETIRAcetam 500 MG/5 ML ORAL SOLUTION (UNIT-DOSE CUPS) GT SCH (09:56)
[2023-11-30] MEDS: POLYETHYLENE GLYCOL (HEALTHYLAX) 3350 17 GM PACKET GT SCH (09:56)
[2023-11-30] MEDS: CHOLECALCIFEROL (VIT D3) 1,000 UNIT (25 MCG) TABLET GT SCH (09:56)
[2023-11-30] MEDS: ASCORBIC ACID 500 MG/5 ML UNIT DOSE CUP GT SCH (09:56)
[2023-11-30] MEDS: FLUTICASONE PROP 0.05% 16 GM NASAL SPRAY NS SCH (09:57)
[2023-11-30] MEDS: HEPARIN NA (PORCINE) 5,000 UNITS/ML 1ML VIAL SQ SCH (09:57)
[2023-11-30] MEDS: NYSTATIN POWDER 100,000 UNITS/GM - 15 GM TOPICAL POWDER TP SCH (09:58)
[2023-11-30] MEDS: BACITRACIN ZINC 15 GM TUBE TOPICAL OINTMENT TP SCH (09:58)
[2023-11-30 10:22] LABS: BASO % 0.4 % (0-2.0); EOS % 0.5 % (0-4.5); HEMATOCRIT 30.6 % (32.4-45.2); HEMOGLOBIN 10.2 GM/dL (10.7-15.3); LYMPH % 33.9 % (8-40); MCH 35.6 pg (25.7-33.7); MCHC 33.1 g/dl (32.0-36.0); MEAN CELL VOLUME 107.5 fl (80-96); MEAN PLT VOLUME 8.7 fl (7.5-11.1); MONO % 9.7 % (3.8-10.2); NEUT % 55.5 % (42.8-82.8); PLATELET COUNT 241 10^3/uL (134-434); RBC 2.85 M/mm3 (3.60-5.2); RDW 13.6 % (11.6-15.6)
[2023-11-30 10:46] LABS: POTASSIUM 3.9 mmol/L (3.5-5.1)
[2023-11-30 10:57] LABS: ALBUMIN 2.7 g/dl (3.4-5.0); BLOOD UREA NITROGEN 21.7 mg/dL (7-18); MAGNESIUM 2.1 mg/dL (1.8-2.4)
[2023-11-30] MEDS: TETRAHYDROZOLINE HCL EYE DROPS OU SCH (10:57)
[2023-11-30 11:00] LABS: CREATININE 0.4 mg/dL (0.55-1.3)
[2023-11-30 11:02] LABS: BILIRUBIN,TOTAL 0.2 mg/dL (0.2-1); TOT PROT 6.2 g/dl (6.4-8.2)
[2023-11-30 12:03] LABS: ANISOCYTOSIS 2+; MACROCYTOSIS 2+
[2023-11-30 15:32] VITALS: BP 92/51; PULSE 63; RESP 18; TEMP 97.8
== END 2023-11-30 17:40 | DRG 193 ==
LOC: JER 00:48 → JERBED 06:10 → J8W 11-17 15:25
PROVIDERS: ADMIT Internal Medicine; ATTEND Nurse Practitioner Family
DX: J12.1 Respiratory syncytial virus pneumonia (principal); J96.01 Acute respiratory failure with hypoxia; R53.2 Functional quadriplegia; E27.40 Unspecified adrenocortical insufficiency; J98.11 Atelectasis; G93.1 Anoxic brain damage, not elsewhere classified; G40.909 Epilepsy, unspecified, not intractable, without status epilepticus; E03.9 Hypothyroidism, unspecified; D64.9 Anemia, unspecified; J18.9 Pneumonia, unspecified organism; J98.01 Acute bronchospasm; E66.9 Obesity, unspecified; Z68.28 Body mass index [BMI] 28.0-28.9, adult; Z87.820 Personal history of traumatic brain injury; Z93.1 Gastrostomy status
CPT/HCPCS: 0241U-QW; 36415; 71045-TC-FY; 80048; 80053; 80076; 82962; 83605; 83735; 84100; 85025; 85027; 87040; 87070; 87186; 87205; 93005; 93010; 94640; 99285-25; J1100; J1644

== ENCOUNTER 2024-11-30 09:19 | Inpatient (IN) | payer OTHER ==
[2024-11-30] MEDS ORDERED: ACETAMINOPHEN INJECTION 100 ML ONE (09:56)
[2024-11-30 09:57] VITALS: BMI 20.9
[2024-11-30] MEDS: ACETAMINOPHEN 1000 MG/100 ML BAG IVPB ONE (10:42)
[2024-11-30] MEDS: SODIUM CHLORIDE 1,000 ML IV STA ×2 (10:42→12:09)
[2024-11-30 10:45] LABS: BASO % 0.4 % (0-2.0); EOS % 0.1 % (0-4.5); EPI CELLS 2 /uL (0-25.1); HEMATOCRIT 35.8 % (32.4-45.2); HEMOGLOBIN 11.8 GM/dL (10.7-15.3); HYALINE CASTS 0 /uL (0-3.1); LYMPH % 10.5 % (8-40); MCH 33.1 pg (25.7-33.7); MCHC 32.9 g/dl (32.0-36.0); MEAN CELL VOLUME 100.6 fl (80-96); MEAN PLT VOLUME 8.4 fl (7.5-11.1); MONO % 9.2 % (3.8-10.2); NEUT % 79.8 % (42.8-82.8); PLATELET COUNT 312 10^3/uL (134-434); RBC 3.56 M/mm3 (3.60-5.2); RDW 13.8 % (11.6-15.6); URINE APPEARANCE CLEAR; URINE BACTERIA >9,000 /uL (0-1359); URINE BILIRUBIN NEGATIVE (NEGATIVE); URINE COLOR DK YELLOW; URINE GLUCOSE (UA) NEGATIVE (NEGATIVE); URINE KETONE NEGATIVE (NEGATIVE); URINE LEUK ESTERASE 2+ (NEGATIVE); URINE NITRITE NEGATIVE (NEGATIVE); URINE PROTEIN TRACE (NEGATIVE); URINE UROBILINOGEN 0.2 mg/dL (0.2-1.0); URINE WBC 203 /uL (0-25.8); WHITE BLOOD COUNT 18.6 K/mm3 (4.0-10.0)
[2024-11-30 10:47] LABS: URINE RBC 26 /uL (0-23.9)
[2024-11-30 10:48] LABS: VENOUS BASE EXCESS -0.6 mmol/L (-2-2); VENOUS O2 SATURATION 96.7 % (70-80); VENOUS PCO2 37.6 mmHg (38-52); VENOUS PH 7.415 (7.310-7.410)
[2024-11-30 10:49] LABS: INR 1.16 (0.83-1.09)
[2024-11-30 10:51] LABS: ACTIVATED PTT 29.5 SECONDS (25.2-36.5)
[2024-11-30] MEDS ORDERED: CLINDAMYCIN 600MG PREMIX IVPB 600 MG/50 ML BAG IVPB ONE (11:03)
[2024-11-30 11:10] LABS: POTASSIUM 3.7 mmol/L (3.5-5.1)
[2024-11-30 11:12] LABS: CALCIUM 9.4 mg/dL (8.5-10.1)
[2024-11-30 11:13] LABS: ALBUMIN 3.2 g/dl (3.4-5.0); BLOOD UREA NITROGEN 11.8 mg/dL (7-18)
[2024-11-30 11:16] LABS: CREATININE 0.7 mg/dL (0.55-1.3)
[2024-11-30 11:18] LABS: BILIRUBIN,TOTAL 1.1 mg/dL (0.2-1)
[2024-11-30 11:19] LABS: TOT PROT 6.9 g/dl (6.4-8.2)
[2024-11-30 11:45] LABS: LACTIC ACID 2.5 mmol/L (0.4-2.0)
[2024-11-30] MEDS: AZITHROMYCIN IVPB 500 MG in DEXTROSE 5%-WATER - 250 ML IVPB ONE (11:48)
[2024-11-30] MEDS: CLINDAMYCIN 600MG PREMIX IVPB 600 MG/50 ML BAG IVPB ONE (12:09)
[2024-11-30] MEDS ORDERED: BACITRACIN ZINC 15 GM TUBE TOPICAL OINTMENT TP PRN (13:03)
[2024-11-30] MEDS ORDERED: ACETAMINOPHEN 650 MG/20.3 ML ORAL SOLUTION (CUPS) GT PRN (13:03)
[2024-11-30] MEDS ORDERED: SIMETHICONE 40 MG/0.6 ML BOTTLE GT PRN (13:03)
[2024-11-30] MEDS ORDERED: ALBUTEROL SO4 0.083% IH SOL 2.5 MG/3 ML VIAL.NEB. NEB PRN (13:03)
[2024-11-30] MEDS ORDERED: BISACODYL 10 MG SUPP.RECT PR PRN (13:03)
[2024-11-30] MEDS: AZTREONAM 2 GM in DEXTROSE 5%-WATER 100 ML IVPB ONE (15:07)
[2024-11-30] MEDS ORDERED: VANCOMYCIN 1 GM PREMIX (F) 1 GM/200 ML BAG ONE (15:32)
[2024-11-30] MEDS: URSODIOL 300 MG CAPSULE PO SCH (15:57)
[2024-11-30] MEDS: SCOPOLAMINE HYDROBROMIDE 1 PATCH PATCH.TD72 TD SCH (15:57)
[2024-11-30] MEDS: VANCOMYCIN/WATER FOR INJ (PEG) 1,000 MG/200 ML BAG IVPB SCH (15:58)
[2024-11-30] MEDS ORDERED: AZTREONAM 2 GM in DEXTROSE 5%-WATER 100 ML IVPB SCH (18:00)
[2024-11-30] MEDS: AZTREONAM 2 GM in DEXTROSE 5%-WATER 100 ML IVPB SCH (18:27)
[2024-11-30 19:02] LABS: LACTIC ACID 2.6 mmol/L (0.4-2.0)
[2024-11-30] MEDS: LACTATED RINGERS SOLUTION 1,000 ML/1,000 ML INFUS.BAG IV SCH (20:15)
[2024-11-30] MEDS: CHOLECALCIFEROL (VIT D3) 1,000 UNIT (25 MCG) TABLET GT SCH (21:32)
[2024-11-30] MEDS: levETIRAcetam 500 MG/5 ML ORAL SOLUTION (UNIT-DOSE CUPS) GT SCH (21:32)
[2024-11-30] MEDS: LORATADINE 10 MG TABLET GT SCH (21:33)
[2024-11-30] MEDS: ZINC OXIDE 20% TOPICAL OINTMENT 30 GM TUBE TP PRN (21:33)
[2024-11-30] MEDS: NYSTATIN POWDER 100,000 UNITS/GM - 15 GM TOPICAL POWDER TP SCH (21:33)
[2024-11-30] MEDS ORDERED: PATIENT'S OWN MEDICATION (NON-FORMULARY) (Cyclosporine [Restasis] 1 EACH Droperette) OP SCH (22:00)
[2024-11-30 22:08] LABS: LACTIC ACID 2.4 mmol/L (0.4-2.0)
[2024-12-01] MEDS: CLINDAMYCIN 600MG PREMIX IVPB 600 MG/50 ML BAG IVPB SCH (01:07)
[2024-12-01] MEDS ORDERED: VANCOMYCIN/WATER FOR INJ (PEG) 1,000 MG/200 ML BAG IVPB SCH (03:00)
[2024-12-01] MEDS: LEVOTHYROXINE NA 100 MCG TABLET (FP) GT SCH (06:15)
[2024-12-01 09:25] LABS: BASO % 0.2 % (0-2.0); EOS % 0.4 % (0-4.5); HEMATOCRIT 31.5 % (32.4-45.2); HEMOGLOBIN 10.8 GM/dL (10.7-15.3); LYMPH % 8.1 % (8-40); MCHC 34.1 g/dl (32.0-36.0); MEAN CELL VOLUME 99.7 fl (80-96); MEAN PLT VOLUME 8.5 fl (7.5-11.1); MONO % 6.6 % (3.8-10.2); NEUT % 84.7 % (42.8-82.8); PLATELET COUNT 257 10^3/uL (134-434); RBC 3.16 M/mm3 (3.60-5.2); RDW 13.5 % (11.6-15.6); WHITE BLOOD COUNT 14.5 K/mm3 (4.0-10.0)
[2024-12-01 09:41] LABS: POTASSIUM 3.6 mmol/L (3.5-5.1)
[2024-12-01 09:49] LABS: ALBUMIN 2.7 g/dl (3.4-5.0); BLOOD UREA NITROGEN 5.5 mg/dL (7-18); CALCIUM 8.9 mg/dL (8.5-10.1)
[2024-12-01 09:52] LABS: CREATININE 0.5 mg/dL (0.55-1.3); PHOSPHOROUS 1.6 mg/dL (2.5-4.9)
[2024-12-01 09:54] LABS: BILIRUBIN,TOTAL 0.8 mg/dL (0.2-1); TOT PROT 6.1 g/dl (6.4-8.2)
[2024-12-01 09:57] LABS: LACTIC ACID 2.3 mmol/L (0.4-2.0)
[2024-12-01] MEDS ORDERED: PATIENT'S OWN MEDICATION (NON-FORMULARY) (Olopatadine Hcl [Pataday] 2.5 ML Drops) OP SCH (10:00)
[2024-12-01] MEDS: PANTOPRAZOLE 40 MG TABLET PO SCH (12:05)
[2024-12-01] MEDS: ENOXAPARIN NA (PORCINE) 40 MG/0.4 ML DISP.SYRIN SQ SCH (12:05)
[2024-12-01] MEDS: MAGNESIUM HYDROX 2400MG/30ML ORAL SUSPENSION 30 ML CUP GT SCH (12:05)
[2024-12-01] MEDS: LACTATED RINGERS SOLUTION 1,000 ML/1,000 ML INFUS.BAG IV SCH (12:53)
[2024-12-01] MEDS: NAPH,MB-DB/K PH,MBDB POWDER PACKET PO ONE (17:41)
[2024-12-01] MEDS: DOXYCYCLINE MONOHYDRATE 25 MG/5 ML SUSPENSION GT SCH (20:51)
[2024-12-02 09:27] LABS: HEMATOCRIT 29.8 % (32.4-45.2); HEMOGLOBIN 9.9 GM/dL (10.7-15.3); MCH 33.8 pg (25.7-33.7); MCHC 33.4 g/dl (32.0-36.0); MEAN CELL VOLUME 101.3 fl (80-96); MEAN PLT VOLUME 8.5 fl (7.5-11.1); RBC 2.94 M/mm3 (3.60-5.2); RDW 13.9 % (11.6-15.6); WHITE BLOOD COUNT 14.2 K/mm3 (4.0-10.0)
[2024-12-02 10:03] LABS: POTASSIUM 3.9 mmol/L (3.5-5.1)
[2024-12-02 10:52] LABS: CALCIUM 9.1 mg/dL (8.5-10.1)
[2024-12-02 10:53] LABS: ALBUMIN 2.6 g/dl (3.4-5.0); BLOOD UREA NITROGEN 8.3 mg/dL (7-18); MAGNESIUM 1.9 mg/dL (1.8-2.4)
[2024-12-02 10:56] LABS: CREATININE 0.4 mg/dL (0.55-1.3); PHOSPHOROUS 2.2 mg/dL (2.5-4.9)
[2024-12-02 10:59] LABS: BILIRUBIN,TOTAL 0.4 mg/dL (0.2-1)
[2024-12-02 11:33] LABS: PLATELET COUNT 228 10^3/uL (134-434)
[2024-12-02] MEDS ORDERED: NAPH,MB-DB/K PH,MBDB POWDER PACKET PO SCH (11:45)
[2024-12-02] MEDS: IBUPROFEN 100 MG/5 ML UNIT DOSE CUPS GT PRN (17:04)
[2024-12-02 22:01] VITALS: RESP 18
[2024-12-02] MEDS: NAPH,MB-DB/K PH,MBDB POWDER PACKET GT SCH (22:23)
[2024-12-03 03:05] VITALS: TEMP 97.5
[2024-12-03] MEDS: AMINO ACIDS/PROTEIN HYDROLYS 30 ML LIQUID.PKT GT SCH (08:21)
[2024-12-03 08:35] VITALS: BP 124/90; PULSE 89
[2024-12-03 09:15] LABS: BASO % 0.5 % (0-2.0); EOS % 2.5 % (0-4.5); HEMATOCRIT 33.7 % (32.4-45.2); HEMOGLOBIN 11.5 GM/dL (10.7-15.3); LYMPH % 23.4 % (8-40); MCH 34.2 pg (25.7-33.7); MCHC 34.1 g/dl (32.0-36.0); MEAN CELL VOLUME 100.4 fl (80-96); MEAN PLT VOLUME 8.1 fl (7.5-11.1); MONO % 9.3 % (3.8-10.2); NEUT % 64.3 % (42.8-82.8); PLATELET COUNT 293 10^3/uL (134-434); RBC 3.36 M/mm3 (3.60-5.2); RDW 14.1 % (11.6-15.6)
[2024-12-03 09:41] LABS: POTASSIUM 3.8 mmol/L (3.5-5.1)
[2024-12-03 09:45] LABS: BLOOD UREA NITROGEN 11.2 mg/dL (7-18)
[2024-12-03 09:47] LABS: CALCIUM 9.5 mg/dL (8.5-10.1)
[2024-12-03 09:48] LABS: CREATININE 0.4 mg/dL (0.55-1.3); PHOSPHOROUS 3.4 mg/dL (2.5-4.9)
== END 2024-12-03 12:45 | DRG 871 ==
LOC: JER 09:19 → JERBED 11:56 → J6S 16:26
PROVIDERS: ADMIT Student in an Organized Health Care Education/Training Program; ATTEND Internal Medicine
DX: A40.9 Streptococcal sepsis, unspecified (principal); G82.50 Quadriplegia, unspecified; N39.0 Urinary tract infection, site not specified; E03.9 Hypothyroidism, unspecified; G40.909 Epilepsy, unspecified, not intractable, without status epilepticus; E83.39 Other disorders of phosphorus metabolism; D72.829 Elevated white blood cell count, unspecified
CPT/HCPCS: 0241U-QW; 36415; 71045-TC-FY; 76705-TC; 80048; 80053; 81003; 82803; 83605; 83735; 84100; 84484; 85025; 85027; 85610; 85730; 86850; 86900; 86901; 87040; 87086; 87186; 93005; 93010; 99291; J0131